=== PATIENT | female | born 1975 | race Caucasian/White ===

== ENCOUNTER 2021-01-08 13:36 | Emergency (ER) | payer MEDICARE, MEDICAID, SELFPAY ==
[2021-01-08 13:40] VITALS: BP 96/72; PULSE 103; RESP 18; O2SAT 100; BMI 12.5
[2021-01-08 13:52] VITALS: BP 96/72; PULSE 105; RESP 17; O2SAT 100
--- NOTE | 2021-01-08 13:57 | CT_ITS ---
WS: [id number] CT ABDOMEN PELVIS TECHNIQUE: Contrast-enhanced CT of the abdomen and pelvis with coronal and sagittal reformatted image s. CLINICAL INFORMATION: abd pain. recent surgeries. Ports on left abd red/puss/tend Tiny amount of fluid and edema along the gastrostomy tube tract left upper quadrant. No drainable abs cess or fluid collection. COMPARISON: December 07, 2016 DLP: 686.[address] scans at [facility] use at least one of these dose optimization techniques: automat ed exposure control; mA and/or kV adjustment per patient size (includes targeted exams where dose is matched to clinical indication); or iterative reconstruction. FINDINGS: Diffuse fatty infiltration liver. Normal portal vein and splenic vein. Intraluminal gastrostomy tube in the stomach. Small amount of edema and fluid in the left upper quadrant along the gastrostomy trac t. No well-defined drainable abscess or fluid collection. Normal spleen. Lung bases are well aerated. Adrenal glands are normal. Normal renal parenchymal enhan cement. Tiny bilateral renal cysts. No hydronephrosis. Normal caliber abdominal aorta. Diffuse disten ded fluid-filled loops of small and large bowel throughout the abdomen. This extends to the sigmoid c olon. Findings likely due to adynamic ileus versus distal obstruction. Evidence of prior bowel resect ion. Normal lumbar spine. CT/CT abdomen pelvis w con* [id number] IMPRESSION: 1. Intraluminal gastrostomy tube appears in normal position. Small amount of f luid and soft tissue edema along the gastrostomy tract in the left upper quadra nt. No well-defined drainable abscess. 2. Distended fluid-filled loops of both small and large bowel extending to the sigmoid colon. Findings are likely due to adynamic ileus versus less likely di stal obstruction. 3. Normal renal parenchymal enhancement. No hydronephrosis. Attempted notification Werner Bishop MD at 01/08/2021 2:39 PM.
--- NOTE | 2021-01-08 13:59 | ECG_ITS ---
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 Measurements Intervals [place] Rate: 101 P: -12 ME: 120 QRS: -3 QRSD: 82 T: -12 QT: 417 QTc: 541 Interpretive Statements SINUS TACHYCARDIA POSSIBLE LEFT ATRIAL ENLARGEMENT [-0.1mV P WAVE IN V1/V2] MINIMAL ST DEPRESSION [0.025+ mV ST DEPRESSION] Compared to ECG 04/24/2017 21:31:18 Sinus rhythm no longer present ST (T wave) deviation still present Electronically Signed On 01-09-2021 18:45:25 CDT by Odell Og M.D. [id number]
[2021-01-08 14:09] LABS: Basophils # 0.1 10^3/uL (0.0-0.1); Basophils % 0.6 %; Eosinophils # 0.5 10^3/uL (0.0-0.8); Hematocrit 33.5 % (37.0-47.0); Lymphocytes % 15.5 %; Mean Corpuscular HGB Conc 29.9 g/dL (30.0-36.0); Mean Corpuscular Hemoglobin 24.2 pg (28.0-34.0); Mean Corpuscular Volume 81.1 fL (81-99); Mean Platelet Volume 9.1 fL (7.4-10.4); Monocytes # 0.9 10^3/uL (0.2-0.9); Monocytes % 7.1 %; Neutrophils # 9.13 10^3/uL (1.8-7.7); Neutrophils % 72.4 %; Nucleated Red Blood Cells % 0 %; Platelet Count 921 10^3/cmm (130-400); Red Blood Count 4.13 10^6/uL (4.1-5.3); Red Cell Distribution Width 16.9 % (12.1-15.1); White Blood Count 12.6 10^3/uL (4.0-10.0)
[2021-01-08] MEDS: iohexol 300 mg/mL 100 mL Btl IV (14:17)
[2021-01-08 14:30] LABS: HCG, Serum Qual Negative (Negative)
[2021-01-08 14:31] LABS: Lactate (Lactic Acid level) 0.8 mmol/L (0.5-2.2)
[2021-01-08 14:32] LABS: Alanine Aminotransferase 12 U/L (0-33); Albumin Level 4.1 g/dL (3.5-5.2); Alkaline Phosphatase 133 IU/L (35-105); Anion Gap 14.7 (5-19); Aspartate Amino Transferase 18 U/L (0-32); Blood Urea Nitrogen 22 mg/dL (6-20); Calcium 8.6 mg/dL (8.5-10.5); Carbon Dioxide 27 mmol/L (22-29); Chloride 97 mmol/L (98-107); Globulin 3.2 g/dL (1.3-4.6); Glomerular Filtration Rate 67.4 mL/min (90-130); Glucose 87 mg/dL (65-115); Lipase 56 U/L (13-60); Osmolality Calculated 285 mOsm/kg (285-295); Sodium 136 mmol/L (136-145); Total Bilirubin 0.2 mg/dL (0.15-1.2); Total Protein 7.3 g/dL (6.6-8.7)
[2021-01-08 14:36] LABS: Potassium 2.7 mmol/L (3.5-5.1)
--- NOTE | 2021-01-08 14:45 | PC.PHAR ---
PT STATES HER AND HER TAKE CARE OF HER MEDICATIONS-PT HAD A RX FOR LORAZEPAM 2MG DAILY FILLED ON 12/27/20 10D/S PT STATES SHE IS OUT OF THAT MEDICATION-PT GOT TRAZODONE 150MG TAKE 75MG HS FILLED ON 12/27/20 20D/S PT STATES SHE WAS JUST TAKING THE WHOLE 150MG TAB AND HAS BEEN OUT FOR ALMOST 2 WEEKS-EXT MED HISTORY SHOWS NARCAN FILLED ON 12/27/20 PT STATES SHE NEVER GOT THAT MEDICATION-
[2021-01-08] MEDS: sodium chloride 0.9% 1,000 ML 999 ML IV (15:02)
[2021-01-08] MEDS: lidocaine 1% 5 ML in potassium chloride premix 100 ML 25 ML IV (15:05)
[2021-01-08 15:10] VITALS: BP 95/62; PULSE 102; RESP 16; O2SAT 100
[2021-01-08 15:54] LABS: Add Urine Microscopic? YES; Bilirubin Urine Neg (Negative); Blood Urine Trace (Negative); Glucose Urine UA Norm (Normal); Ketones Urine Negative (Negative); Leukocyte Esterase Urine Negative (Negative); Nitrate Urine Negative (Negative); Protein Urine Neg (Negative); Urine Appearance Clear (CLEAR); Urine Color Yellow (Yellow); Urobilinogen Urine Norm (Negative); pH Urine 5 (5-7)
[2021-01-08 16:03] LABS: Bacteria Urine TRACE /hpf; WBC Urine 0-4 /hpf (0-5)
[2021-01-08 16:04] LABS: Add Urine Culture? No
[2021-01-08 16:07] LABS: Alanine Aminotransferase 10 U/L (0-33); Albumin Level 3.5 g/dL (3.5-5.2); Alkaline Phosphatase 115 IU/L (35-105); Anion Gap 13.5 (5-19); Aspartate Amino Transferase 17 U/L (0-32); Blood Urea Nitrogen 20 mg/dL (6-20); Carbon Dioxide 24 mmol/L (22-29); Chloride 98 mmol/L (98-107); Globulin 2.9 g/dL (1.3-4.6); Glomerular Filtration Rate 77.2 mL/min (90-130); Glucose 88 mg/dL (65-115); Osmolality Calculated 278 mOsm/kg (285-295); Sodium 133 mmol/L (136-145); Total Bilirubin 0.2 mg/dL (0.15-1.2); Total Protein 6.4 g/dL (6.6-8.7)
[2021-01-08 16:20] LABS: Potassium 2.5 mmol/L (3.5-5.1)
[2021-01-08] MEDS: potassium chloride ER 20 mEq Tablet 40 MEQ PO (17:36)
[2021-01-08] MEDS: morphine 4 mg/mL SDV 1 mL 2 MG IVP (17:36)
--- NOTE | 2021-01-08 19:11 | W.ED.ABDPA2 ---
HPI - Abdominal Pain General: Chief Complaint: Abdominal Pain Stated Complaint: ABD PAIN Time Seen by Provider: 01/08/21 13:43 History of Present Illness: HPI narrative: The patient is a 45-year-old female with past medical history multiple abdominal surgeries most recently 3 weeks ago where she had a G-tube placed comes to the ER complaining of pain, redness, and discharge from the G-tube site for the past week which has been worsening. She cannot recall any of her previous surgeries but says it started with a bowel rupture and she has had multiple procedures since. She is passing gas normally. MD elicited complaint: abdominal pain Pertinent past history: none Onset (ago): day(s) (7) Pain Consistency: constant Location: LUQ Severity: moderate Quality: sharp Exacerbating factors: other (touching g tube) Relieving factors: rest Associated Symptoms: Reports no associated symptoms; Denies GI cramping, diarrhea, nausea and vomiting Review of Systems General: Reports: 10 or more systems reviewed and unremarkable except in HPI and below Const: Denies: fatigue Eyes: Denies: change in vision, blurry vision or eye redness ENMT: Denies: throat pain, swelling of lips/tongue, ear or mastoid pain or nasal congestion Card: Denies: chest pain, palpitations, irregular heart rhythm, edema, dyspnea on exertion or orthopnea Resp: Denies: dyspnea, productive cough or non-productive cough GI: Reports: abdominal pain; Denies: nausea, vomiting, diarrhea or GI cramping : Denies: flank pain, difficulty voiding, urinary frequency or urinary urgency Musc: Denies: neck pain, back pain, extremity pain, joint pain, joint redness, limited range of motion or muscle weakness Skin/Breast: Denies: rash, pruritus, erythema, skin pain or skin tenderness Neuro: Denies: headache(s), numbness in extremities, weakness in extremities, sensory changes, difficulty walking, dizziness, confusion or Slurred speech present Psych: Denies: anxiety or depression Endo: Denies: polyuria All/Imm: Denies: urticaria, throat swelling or tongue swelling Physical Exam Const: COMMON NORMALS: no acute distress, average body habitus, patient oriented x3, no limitations, healthy appearing, alert and well nourished GENERAL APPEARANCE: cooperative, comfortable, well kempt and well developed ORIENTATION/CONSCIOUSNESS: Yes awake, Yes oriented to person, Yes oriented to place and Yes oriented to time HENMT: COMMON NORMALS: normocephalic, external ears normal and Normal external nose present HEAD & SCALP: normal to inspection and normocephalic NOSE: Normal external nose present EXTERNAL EAR: Yes external ears normal MOUTH: Normal oral and palatal mucosa present THROAT: posterior oropharynx normal Eye: COMMON NORMALS: Equal, round and reactive pupils present and EOMs intact bilaterally GENERAL EYE: appearance normal, both eyes and all related structures PUPIL: Yes Equal, round and reactive pupils present Neck/C-Spine: COMMON NORMALS: full ROM, no lymphadenopathy, no meningeal signs and no JVD GENERAL: Yes normal visual inspection Lymph: LYMPHATIC: no lymphadenopathy noted Chest: COMMONS NORMALS: normal inspection of the chest and normal palpation of entire chest wall Resp: COMMON NORMALS: normal respiratory effort, No retractions, No use of accessory muscles, clear to auscultation bilaterally and percussion normal EFFORT & INSPECTION: Yes able to speak in complete sentences AUSCULTATION: clear to auscultation bilaterally PERCUSSION: percussion normal Cardio: COMMON NORMALS: no JVD, regular rate, regular rhythm, S1 normal heart sound present, S2 normal heart sound present and Peripheral pulses 2+ throughout RATE: regular rate RHYTHM: regular rhythm HEART SOUNDS: S1 normal heart sound present and S2 normal heart sound present PERIPHERAL PULSES: Peripheral pulses 2+ throughout GI: COMMON NORMALS: Normal to inspection, nondistended, normoactive bowel sounds present, Soft to palpation, non-tender and no masses INSPECTION: Yes normal to inspection PALPATION: Yes Soft to palpation GI image (female): 1. G-tube site tender and surrounded by 4 cm cellulitis. No fluctuance : COMMON NORMALS: Yes no CVA tenderness BLADDER/KIDNEY EXAM: Yes no CVA tenderness Back/Pelvis: COMMON NORMALS: no CVA tenderness, thoracic and lumbar spine normal to inspection, no thoracic nor lumbar tenderness and thoraco-lumbar ROM normal Extremity: COMMON NORMALS: normal to inspection, full ROM, capillary refill normal, no joint enlargement and no pedal edema GENERAL: Yes normal exam except as noted Neuro: COMMON NORMALS: patient oriented x3, CN's II-XII intact bilaterally, moves all extremities, no focal motor deficits, no sensory deficits noted and gait normal SENSORIUM/ORIENTATION: Yes alert, Yes oriented to person, Yes oriented to place and Yes oriented to time MENINGEAL SIGNS: Yes no meningeal signs Psych: COMMON NORMALS: mental status grossly normal, Normal thought process present, cooperative, normal affect and speech normal APPEARANCE: Yes well kempt ATTITUDE: Yes calm SPEECH: Yes normal speech THOUGHT PROCESS: Normal thought process present Skin: COMMON NORMALS: no rashes or lesions noted GENERAL SKIN EXAM: no rashes or lesions noted OTHER: 4 cm cellulitis surrounding left G-tube. No significant discharge or fluctuance. Belly soft otherwise. Course Vital Signs: Vital signs: Vital Signs Pulse Rate 102 H 01/08/21 15:10 Respiratory Rate 16 01/08/21 15:10 Blood Pressure 95/62 01/08/21 15:10 Pulse Oximetry 100 01/08/21 15:10 MDM - Abdominal Pain MDM Narrative: Medical decision making narrative: The patient came in complaining of abdominal pain for the past week which is worsening and having discharge from the G-tube. I believe it was placed 3 days ago but she is a poor historian and there is no records. She is also tachycardic, hypotensive and has a white count of 12.6. She was given 2 L of fluids and started on Unasyn for empiric treatment of her cellulitis. CT shows no abscess but does show swelling of the tract along the G-tubes path. It also shows an ileus. She also has hypokalemia 2.5. She pulled out her IV after IV potassium was started and was given 40 p.o. potassium. Discussed with our surgeon here who recommended she follow-up with her surgeon at [facility]. Discussed with Dr. Aparicio her surgeon who will see her when she arrives. Discussed with Dr. Paresh Naidu in the ER who accepts for transfer. She is stable here Lab Data: Labs: Lab Results 01/08/21 01/08/21 01/08/21 Range/Units 12:50 12:50 12:50 WBC 12.6 H (4.0-10.0) 10^3/ uL RBC 4.13 (4.1-5.3) 10^6/u L Hgb 10.0 L (11.5-15.3) g/dL Hct 33.5 L (37.0-47.0) % MCV 81.1 (81-99) fL MCH 24.2 L (28.0-34.0) pg MCHC 29.9 L (30.0-36.0) g/dL RDW 16.9 H (12.1-15.1) % Plt Count 921 H (130-400) 10^3/c mm MPV 9.1 (7.4-10.4) fL Neut % (Auto) 72.4 % Lymph % (Auto) 15.5 % [place] % (Auto) 7.1 % Eos % (Auto) 4.0 % Baso % (Auto) 0.6 % Neut # (Auto) 9.13 H (1.8-7.7) 10^3/u L Lymph # (Auto) 2.0 (0.8-4.8) 10^3/u L [place] # (Auto) 0.9 (0.2-0.9) 10^3/u L Eos # (Auto) 0.5 (0.0-0.8) 10^3/u L Baso # (Auto) 0.1 (0.0-0.1) 10^3/u L Nucleated RBC % (a uto) 0 % Nucleated RBCs # 0.0 /100WBC Sodium Cancelled Potassium Cancelled Chloride Cancelled Carbon Dioxide Cancelled Anion Gap Cancelled BUN Cancelled Creatinine Cancelled GFR Calculation Cancelled Glucose Cancelled Random Glucose Calculated Osmolal ity Cancelled Lactate 0.8 (0.5-2.2) mmol/L Calcium Cancelled Total Bilirubin Cancelled AST Cancelled ALT Cancelled Alkaline Phosphata se Cancelled Total Protein Cancelled Albumin Cancelled Globulin Cancelled Lipase Cancelled HCG, Qual (Negative) Urine Color (Yellow) Urine Appearance (CLEAR) Urine pH (5-7) Ur Specific Gravit y (1.005-1.030) Urine Protein (Negative) Urine Glucose (UA) (Normal) Urine Ketones (Negative) Urine Blood (Negative) Urine Nitrate (Negative) Urine Bilirubin (Negative) Urine Urobilinogen (Negative) mg/dL Ur Leukocyte [place] ase (Negative) Urine RBC (0-2) /hpf Urine WBC (0-5) /hpf Ur Squamous Epith Cells (0-5) /hpf Amorphous Sediment Urine Bacteria (NONE) /hpf 01/08/21 01/08/21 01/08/21 Range/Units 12:50 12:50 15:01 WBC (4.0-10.0) 10^3/ uL RBC (4.1-5.3) 10^6/u L Hgb (11.5-15.3) g/dL Hct (37.0-47.0) % MCV (81-99) fL MCH (28.0-34.0) pg MCHC (30.0-36.0) g/dL RDW (12.1-15.1) % Plt Count (130-400) 10^3/c mm MPV (7.4-10.4) fL Neut % (Auto) % Lymph % (Auto) % [place] % (Auto) % Eos % (Auto) % Baso % (Auto) % Neut # (Auto) (1.8-7.7) 10^3/u L Lymph # (Auto) (0.8-4.8) 10^3/u L [place] # (Auto) (0.2-0.9) 10^3/u L Eos # (Auto) (0.0-0.8) 10^3/u L Baso # (Auto) (0.0-0.1) 10^3/u L Nucleated RBC % (a uto) % Nucleated RBCs # /100WBC Sodium Cancelled 133 L Potassium Cancelled 2.5 L* Chloride Cancelled 98 Carbon Dioxide Cancelled 24 Anion Gap Cancelled 13.5 BUN Cancelled 20 Creatinine Cancelled 0.8 GFR Calculation Cancelled 77.2 L Glucose 87 88 Random Glucose Cancelled Calculated Osmolal ity 285 278 L Lactate (0.5-2.2) mmol/L Calcium Cancelled 8.0 L Total Bilirubin Cancelled 0.2 AST Cancelled 17 ALT Cancelled 10 Alkaline Phosphata se Cancelled 115 H Total Protein Cancelled 6.4 L Albumin Cancelled 3.5 Globulin Cancelled 2.9 Lipase 56 HCG, Qual Negative (Negative) Urine Color (Yellow) Urine Appearance (CLEAR) Urine pH (5-7) Ur Specific Gravit y (1.005-1.030) Urine Protein (Negative) Urine Glucose (UA) (Normal) Urine Ketones (Negative) Urine Blood (Negative) Urine Nitrate (Negative) Urine Bilirubin (Negative) Urine Urobilinogen (Negative) mg/dL Ur Leukocyte [place] ase (Negative) Urine RBC (0-2) /hpf Urine WBC (0-5) /hpf Ur Squamous Epith Cells (0-5) /hpf Amorphous Sediment Urine Bacteria (NONE) /hpf 01/08/21 Range/Units 15:27 WBC (4.0-10.0) 10^3/ uL RBC (4.1-5.3) 10^6/u L Hgb (11.5-15.3) g/dL Hct (37.0-47.0) % MCV (81-99) fL MCH (28.0-34.0) pg MCHC (30.0-36.0) g/dL RDW (12.1-15.1) % Plt Count (130-400) 10^3/c mm MPV (7.4-10.4) fL Neut % (Auto) % Lymph % (Auto) % [place] % (Auto) % Eos % (Auto) % Baso % (Auto) % Neut # (Auto) (1.8-7.7) 10^3/u L Lymph # (Auto) (0.8-4.8) 10^3/u L [place] # (Auto) (0.2-0.9) 10^3/u L Eos # (Auto) (0.0-0.8) 10^3/u L Baso # (Auto) (0.0-0.1) 10^3/u L Nucleated RBC % (a uto) % Nucleated RBCs # /100WBC Sodium Potassium Chloride Carbon Dioxide Anion Gap BUN Creatinine GFR Calculation Glucose Random Glucose Calculated Osmolal ity Lactate (0.5-2.2) mmol/L Calcium Total Bilirubin AST ALT Alkaline Phosphata se Total Protein Albumin Globulin Lipase HCG, Qual (Negative) Urine Color Yellow (Yellow) Urine Appearance Clear (CLEAR) Urine pH 5 (5-7) Ur Specific Gravit y 1.010 (1.005-1.030) Urine Protein Neg (Negative) Urine Glucose (UA) Norm (Normal) Urine Ketones Negative (Negative) Urine Blood Trace H (Negative) Urine Nitrate Negative (Negative) Urine Bilirubin Neg (Negative) Urine Urobilinogen Norm (Negative) mg/dL Ur Leukocyte [place] ase Negative (Negative) Urine RBC 5-10 H (0-2) /hpf Urine WBC 0-4 H (0-5) /hpf Ur Squamous Epith Cells 5-10 H (0-5) /hpf Amorphous Sediment Not Reportable Urine Bacteria Trace (NONE) /hpf Discharge Plan Discharge Patient Disposition: Xfer Short-Term Hosp Clinical Impression: Sepsis, Cellulitis, Ileus, Hyponatremia Condition: Stable Coding Level of Care Code ED Predatory Animal Exterminator for Khoa Szymanski
[2021-01-08 19:20] VITALS: BP 85/55; PULSE 88; RESP 17; O2SAT 100
[2021-01-08 19:52] VITALS: BP 85/55; PULSE 88; RESP 17; O2SAT 100
== END 2021-01-08 19:54 | disposition short-term general hospital (02) ==
PROVIDERS: Emergency Provider Family Medicine
DX: A41.9 Sepsis, unspecified organism (principal); L03.90 Cellulitis, unspecified; K56.7 Ileus, unspecified; E87.1 Hypo-osmolality and hyponatremia
CPT/HCPCS: 74177; 80053; 81001; 83605; 83690; 84703; 85025; 93005; 96361; 96365; 96375; 99285; J2270; J3480; J7030; Q9967

== ENCOUNTER 2021-07-30 13:28 | Emergency (ER) | payer MEDICARE, MEDICAID, SELFPAY ==
[2021-07-30 13:34] VITALS: BP 91/63; PULSE 107; RESP 16; TEMP 36.4; O2SAT 97; BMI 11.7
--- NOTE | 2021-07-30 13:59 | W.ED.NAVMDI ---
Documented by User: ROSA Goetz 07/31/21 06:56 HPI - Nausea/Vomiting/Diarrhea General: Chief complaint: Nausea/Vomiting/Diarrhea Stated complaint: N/V/D Time Seen by Provider: 07/30/21 13:33 History of Present Illness: HPI Narrative: Presents with nausea vomiting diarrhea for the last 2 weeks. She has had diarrhea has been the biggest problem. She only vomited couple times. Patient has a longstanding history abdominal problems which includes abdominal surgery and the last few months that were done up in [place] between December and January Patient denies any fever chills patient states she has had significant weight loss here recently patient has used marijuana but does not use on a regular basis MD elicited complaint: nausea, vomiting and diarrhea Pertinent past history: abdominal surgery Onset (ago): week(s) Description of diarrhea: watery Associated nausea: Yes Associated abdominal pain: No Severity: moderate Exacerbating factors: none Context: history of abdominal surgery Associated symtoms: Reports no associated symptoms and nausea; Denies anxiety, change in vision, chest pain or headache(s) Review of Systems Const: Denies: fever(s), chills or body aches Eyes: Denies: change in vision or blurry vision ENMT: Denies: throat pain or nasal congestion Card: Denies: chest pain or dyspnea on exertion Resp: Denies: dyspnea, productive cough or non-productive cough GI: Reports: nausea, vomiting and diarrhea Musc: Denies: extremity pain Skin/Breast: Denies: rash Neuro: Denies: headache(s) Psych: Denies: anxiety or depression Charles/Lymph: Denies: easy bruising Physical Exam Const: COMMON NORMALS: no acute distress and patient oriented x3 GENERAL APPEARANCE: frail appearing NUTRITIONAL APPEARANCE: cachectic HENMT: COMMON NORMALS: normocephalic HEAD & SCALP: normal to inspection and normocephalic FACE & SINUS: normal facial exam Eye: COMMON NORMALS: conjunctivae normal GENERAL EYE: appearance normal, both eyes and all related structures CONJUNCTIVA: Yes conjunctivae normal Neck/C-Spine: COMMON NORMALS: no JVD Chest: COMMONS NORMALS: normal inspection of the chest Resp: COMMON NORMALS: normal respiratory effort and clear to auscultation bilaterally AUSCULTATION: clear to auscultation bilaterally Cardio: COMMON NORMALS: no JVD, regular rate and regular rhythm RATE: regular rate RHYTHM: regular rhythm GI: COMMON NORMALS: Normal to inspection, nondistended, normoactive bowel sounds present Extremity: COMMON NORMALS: normal to inspection and full ROM Neuro: COMMON NORMALS: patient oriented x3 Course Vital Signs: Vital signs: Vital Signs Temperature 98.2 F 07/30/21 14:02 Pulse Rate 107 H 07/30/21 14:02 Respiratory Rate 18 07/30/21 14:02 Blood Pressure 91/63 07/30/21 14:02 Pulse Oximetry 97 07/30/21 14:02 MDM - Nausea/Vomiting/Diarrhea MDM Narrative: Medical decision making narrative: Patient presents with nausea and vomiting, and then diarrhea x2 weeks. Patient has a history of on and off again diarrhea. Patient's had multiple abdominal surgeries. Patient still has that she just aches all over and there does not any medicine take care of her diarrhea. Patient has a history of low potassium. She has not seen her specialist for quite a while. Laboratory studies were done which revealed a potassium of 2.2 which I discussed with Dr. Porter along with other labs which include increased white count and increased platelet and chronic anemia. CT studies reveal gastroenteritis. Patient received fluid and oral liquid potassium while here in the ER. Patient also received Lomotil for diarrhea she was given prescription for potassium, Lomotil and an antibiotic and was encouraged to follow-up with her primary care provider on and Wednesday to get a recheck potassium and further assess whether she is improving with her symptoms. Patient was encouraged follow-up with her specialist also. Lab Data: Labs: Lab Results 07/30/21 07/30/21 07/30/21 15:00 15:35 15:35 WBC 16.7 10^3/uL H 10 ^3/uL (4.0-10.0) RBC 4.26 10^6/uL 10^6 /uL (4.1-5.3) Hgb 9.3 g/dL L g/dL (11.5-15.3) Hct 31.6 % L % (37.0-47.0) MCV 74.2 fl L fl (81-99) MCH 21.8 pg L pg (28.0-34.0) MCHC 29.4 g/dL L g/dL (30.0-36.0) RDW 19.5 % H % (12.1-15.1) Plt Count 782 10^3/cmm H 10 ^3/cmm (130-400) MPV 8.5 fL fL (7.4-10.4) Neut % (Auto) 81.7 % % Lymph % (Auto) 9.1 % % [place] % (Auto) 6.1 % % Eos % (Auto) 0.2 % % Baso % (Auto) 0.6 % % Neut # (Auto) 13.59 10^3/uL H 1 0^3/uL (1.8-7.7) Lymph # (Auto) 1.5 10^3/uL 10^3/ uL (0.8-4.8) [place] # (Auto) 1.0 10^3/uL H 10^ 3/uL (0.2-0.9) Eos # (Auto) 0.0 10^3/uL 10^3/ uL (0.0-0.8) Baso # (Auto) 0.1 10^3/uL 10^3/ uL (0.0-0.1) Nucleated RBC % (a uto) 0 % % Nucleated RBCs # 0.0 /100WBC /100W BC Sodium 124 mmol/L L mmol /L (136-145) Potassium 2.2 mmol/L L* mmo l/L (3.5-5.1) Chloride 88 mmol/L L mmol/ L (98-107) Carbon Dioxide 14 mmol/L L mmol/ L (22-29) Anion Gap 24.2 H (5-19) BUN 23 mg/dL H mg/dL (6-20) Creatinine 1.7 mg/dL H mg/dL (0.5-0.9) GFR Calculation 32.4 mL/min L mL/ min (90-130) Glucose 108 mg/dL mg/dL (65-115) Calculated Osmolal ity 262 mOsm/kg L mOs m/kg (285-295) Calcium 8.0 mg/dL L mg/dL (8.5-10.5) Magnesium 1.7 mg/dL mg/dL (1.7-2.3) Total Bilirubin 0.2 mg/dL mg/dL (0.15-1.2) AST 22 U/L U/L (0-32) ALT 18 U/L U/L (0-33) Alkaline Phosphata se 147 IU/L H IU/L (35-105) Total Protein 6.5 g/dL L g/dL (6.6-8.7) Albumin 3.8 g/dL g/dL (3.5-5.2) Globulin 2.7 g/dL g/dL (1.3-4.6) Lipase 31 U/L U/L (13-60) Urine Color Yellow (Yellow) Urine Appearance Hazy A (CLEAR) Urine pH 5 (5-7) Ur Specific Gravit y 1.015 (1.005-1.030) Urine Protein Neg (Negative) Urine Glucose (UA) Norm (Normal) Urine Ketones Negative (Negative) Urine Blood Neg (Negative) Urine Nitrate Negative (Negative) Urine Bilirubin Neg (Negative) Urine Urobilinogen Norm mg/dL mg/dL (Negative) Ur Leukocyte [place] ase 1+ H (Negative) Urine RBC 0-4 /hpf H /hpf (0-2) Urine WBC 10-15 /hpf H /hpf (0-5) Ur Squamous Epith Cells 5-10 /hpf H /hpf (0-5) Amorphous Sediment Not Reportable Urine Bacteria Trace /hpf /hpf (NONE) Urine Mucus 2+ /hpf /hpf Discharge Plan Discharge Patient Disposition: Home Clinical Impression: Gastroenteritis, High platelet count, Acute hypokalemia Condition: Stable Prescriptions: New Augmentin 875-125 mg tablet 1 tab PO BID Qty: 14 RF: 0 Lomotil 2.5-0.025 mg tablet 1 tab PO TID PRN (Reason: diarrhea) Qty: 10 RF: 0 tramadol 50 mg tablet 50 mg PO TID PRN (Reason: pain) Qty: 7 RF: 0 potassium chloride 20 mEq/15 mL liquid 20 meq PO DAILY Qty: 120 RF: 0 No Action gabapentin 600 mg tablet 600 mg PO TID RF: 0 quetiapine 300 mg tablet 600 mg PO BEDTIME RF: 0 alprazolam 1 mg tablet 1 mg PO QID RF: 0 sertraline 100 mg tablet 100 mg PO BID RF: 0 pantoprazole 40 mg tablet,delayed release (DR/EC) 40 mg PO QAM RF: 0 topiramate 200 mg tablet 200 mg PO BID RF: 0 zolpidem 10 mg tablet 10 mg PO BEDTIME RF: 0 metoclopramide HCl 10 mg tablet 10 mg PO TID RF: 0 Benadryl 25 mg Capsule 50 mg PO PRN RF: 0 Gentle Lax-Women 65-100 mg Tablet 2 tab PO PRN RF: 0 Excedrin Migraine 250-250-65 mg Tablet 2 tab PO PRN RF: 0 Discharge Orders: Discharge ED (Routine); Ordered 07/30/21 Ordered By: Stepan Newell Referrals: Gee Simon [Primary Care Provider] - Discharge Diet: Advance as tolerated Discharge Activity: Increase activity as tolerated Patient Instructions: Hypokalemia (ED), Gastroenteritis (ED) Activity Restrictions/Additional Instructions: Follow-up with medical provider as directed. Take medications as prescribed. Return to the ER or your medical provider if condition worsens. Please read and understand discharge instructions. If any questions ask please. Follow-up with your primary care provider on Wednesday get potassium rechecked. Coding Level of Care Code ED Screening Unit Registered Nurse for Chg Fwd Exam Comprehensive Documented by User: Mohan Porter DO 07/31/21 07:37 HPI - Nausea/Vomiting/Diarrhea General: Chief complaint: Nausea/Vomiting/Diarrhea Stated complaint: N/V/D Time Seen by Provider: 07/30/21 13:33 Course Vital Signs: Vital signs: Vital Signs Temperature 98.2 F 07/30/21 14:02 Pulse Rate 107 H 07/30/21 14:02 Respiratory Rate 18 07/30/21 14:02 Blood Pressure 91/63 07/30/21 14:02 Pulse Oximetry 97 07/30/21 14:02 MDM - Nausea/Vomiting/Diarrhea MDM Narrative: Medical decision making narrative: Chart reviewed. Hypokalemia corrected with oral supplement. Has scheduled repeat potassium check.Reviewing the chart noted her BMI is 11.7. There is also significant weight loss. We will have the patient return on 07/31 for repeat potassium. Lab Data: Labs: Lab Results 07/30/21 07/30/21 07/30/21 15:00 15:35 15:35 WBC 16.7 10^3/uL H 10 ^3/uL (4.0-10.0) RBC 4.26 10^6/uL 10^6 /uL (4.1-5.3) Hgb 9.3 g/dL L g/dL (11.5-15.3) Hct 31.6 % L % (37.0-47.0) MCV 74.2 fl L fl (81-99) MCH 21.8 pg L pg (28.0-34.0) MCHC 29.4 g/dL L g/dL (30.0-36.0) RDW 19.5 % H % (12.1-15.1) Plt Count 782 10^3/cmm H 10 ^3/cmm (130-400) MPV 8.5 fL fL (7.4-10.4) Neut % (Auto) 81.7 % % Lymph % (Auto) 9.1 % % [place] % (Auto) 6.1 % % Eos % (Auto) 0.2 % % Baso % (Auto) 0.6 % % Neut # (Auto) 13.59 10^3/uL H 1 0^3/uL (1.8-7.7) Lymph # (Auto) 1.5 10^3/uL 10^3/ uL (0.8-4.8) [place] # (Auto) 1.0 10^3/uL H 10^ 3/uL (0.2-0.9) Eos # (Auto) 0.0 10^3/uL 10^3/ uL (0.0-0.8) Baso # (Auto) 0.1 10^3/uL 10^3/ uL (0.0-0.1) Nucleated RBC % (a uto) 0 % % Nucleated RBCs # 0.0 /100WBC /100W BC Sodium 124 mmol/L L mmol /L (136-145) Potassium 2.2 mmol/L L* mmo l/L (3.5-5.1) Chloride 88 mmol/L L mmol/ L (98-107) Carbon Dioxide 14 mmol/L L mmol/ L (22-29) Anion Gap 24.2 H (5-19) BUN 23 mg/dL H mg/dL (6-20) Creatinine 1.7 mg/dL H mg/dL (0.5-0.9) GFR Calculation 32.4 mL/min L mL/ min (90-130) Glucose 108 mg/dL mg/dL (65-115) Calculated Osmolal ity 262 mOsm/kg L mOs m/kg (285-295) Calcium 8.0 mg/dL L mg/dL (8.5-10.5) Magnesium 1.7 mg/dL mg/dL (1.7-2.3) Total Bilirubin 0.2 mg/dL mg/dL (0.15-1.2) AST 22 U/L U/L (0-32) ALT 18 U/L U/L (0-33) Alkaline Phosphata se 147 IU/L H IU/L (35-105) Total Protein 6.5 g/dL L g/dL (6.6-8.7) Albumin 3.8 g/dL g/dL (3.5-5.2) Globulin 2.7 g/dL g/dL (1.3-4.6) Lipase 31 U/L U/L (13-60) Urine Color Yellow (Yellow) Urine Appearance Hazy A (CLEAR) Urine pH 5 (5-7) Ur Specific Gravit y 1.015 (1.005-1.030) Urine Protein Neg (Negative) Urine Glucose (UA) Norm (Normal) Urine Ketones Negative (Negative) Urine Blood Neg (Negative) Urine Nitrate Negative (Negative) Urine Bilirubin Neg (Negative) Urine Urobilinogen Norm mg/dL mg/dL (Negative) Ur Leukocyte [place] ase 1+ H (Negative) Urine RBC 0-4 /hpf H /hpf (0-2) Urine WBC 10-15 /hpf H /hpf (0-5) Ur Squamous Epith Cells 5-10 /hpf H /hpf (0-5) Amorphous Sediment Not Reportable Urine Bacteria Trace /hpf /hpf (NONE) Urine Mucus 2+ /hpf /hpf Discharge Plan Discharge Patient Disposition: Home Clinical Impression: Gastroenteritis, High platelet count, Acute hypokalemia Condition: Stable Prescriptions: New Augmentin 875-125 mg tablet 1 tab PO BID Qty: 14 RF: 0 Lomotil 2.5-0.025 mg tablet 1 tab PO TID PRN (Reason: diarrhea) Qty: 10 RF: 0 tramadol 50 mg tablet 50 mg PO TID PRN (Reason: pain) Qty: 7 RF: 0 potassium chloride 20 mEq/15 mL liquid 20 meq PO DAILY Qty: 120 RF: 0 No Action gabapentin 600 mg tablet 600 mg PO TID RF: 0 quetiapine 300 mg tablet 600 mg PO BEDTIME RF: 0 alprazolam 1 mg tablet 1 mg PO QID RF: 0 sertraline 100 mg tablet 100 mg PO BID RF: 0 pantoprazole 40 mg tablet,delayed release (DR/EC) 40 mg PO QAM RF: 0 topiramate 200 mg tablet 200 mg PO BID RF: 0 zolpidem 10 mg tablet 10 mg PO BEDTIME RF: 0 metoclopramide HCl 10 mg tablet 10 mg PO TID RF: 0 Benadryl 25 mg Capsule 50 mg PO PRN RF: 0 Gentle Lax-Women 65-100 mg Tablet 2 tab PO PRN RF: 0 Excedrin Migraine 250-250-65 mg Tablet 2 tab PO PRN RF: 0 Discharge Orders: Discharge ED (Routine); Ordered 07/30/21 Ordered By: Stepan Newell Referrals: Gee Simon [Primary Care Provider] - Discharge Diet: Advance as tolerated Discharge Activity: Increase activity as tolerated Patient Instructions: Hypokalemia (ED), Gastroenteritis (ED) Activity Restrictions/Additional Instructions: Follow-up with medical provider as directed. Take medications as prescribed. Return to the ER or your medical provider if condition worsens. Please read and understand discharge instructions. If any questions ask please. Follow-up with your primary care provider on Wednesday get potassium rechecked. Coding Level of Care Code ED Screening Unit Registered Nurse for Khoa Fwkisha Exam Comprehensive
--- NOTE | 2021-07-30 14:01 | CTR_ITS ---
PROCEDURE INFORMATION: Exam: CT Abdomen And Pelvis With Contrast Exam date and time: 07/30/2021 2:01 PM Age: 45 years old Clinical indication: Nausea and vomiting; Prior surgery; Additional info: HX of abd surgery, rapis weight loss TECHNIQUE: Imaging protocol: Computed tomography of the abdomen and pelvis with contrast. Total images: 198 Radiation optimization: All CT scans at this facility use at least one of these dose optimization techniques: automated exposure control; mA and/or kV adjustment per patient size (includes targeted exams where dose is matched to clinical indication); or iterative reconstruction. Contrast material: OMNI 300; Contrast volume: 75 ml; Contrast route: INTRAVENOUS (IV); COMPARISON: CT abdomen pelvis w con* [id number] 01/08/2021 2:14 PM RADIATION DOSE METRICS: Total DLP (mGy-cm): 693.45 FINDINGS: Lungs: Limited assessment of the lung bases fails to reveal evidence for active cardiopulmonary process. Hyperinflation of COPD/chronic bronchitis. Liver: No visible hepatic mass. Rare tiny simple hepatic cyst stable. Gallbladder and bile ducts: Enlarged hydropic gallbladder. No visible cholelithiasis. No visible gallbladder wall thickening or pericholecystic fluid. Mild intra and extrahepatic biliary ectasia with the common bile duct measuring a maximum diameter of 6.4 mm. No visible choledocholithiasis. Pancreas: Pancreas is unremarkable. No visible pancreatic ductal ectasia. Spleen: Spleen unremarkable. Adrenal glands: Adrenal glands unremarkable. Kidneys and ureters: No hydronephrosis or perinephric fluid. Two tiny nonobstructing calyceal nephrolithiasis foci left kidney both under 2 mm. Right kidney without visible nephrolithiasis. Rare bilateral small simple renal cortical cyst averaging 1 cm smaller period no follow-up recommended Stomach and bowel: Moderate either reactive or adynamic colonic ileus with fluid-filled colonic bowel loops. No visible mucosal thickening to suggest active either inflammatory or infectious colitis. Nonobstructive bowel pattern. Findings consistent with gastroenteritis with gastric mucosal and small bowel mucosal thickening and increased enhancement. Fluid-filled loops of small bowel. Appendix: Status post appendectomy. Intraperitoneal space: Visible pneumoperitoneum or intraperitoneal ascites. Vasculature: Patent portal vein. The abdominal aorta is nonaneurysmal. Lymph nodes: No visible pathologic enlarged lymph nodes. Urinary bladder: Urinary bladder unremarkable. Reproductive: Unremarkable as visualized. Bones/joints: No visible acute osseous abnormality Soft tissues: Cachexia. Other findings: Microcardia. CT/CT abdomen pelvis w con* [id number] IMPRESSION: 1. Findings most consistent with gastroenteritis. 2. Moderate either reactive or adynamic colonic ileus with fluid-filled colonic bowel loops. 3. Enlarged hydropic gallbladder without visible cholelithiasis or gallbladder wall thickening. 4. Mild intra and extrahepatic biliary ectasia. 5. Left nephrolithiasis. 6. Other nonurgent, nonemergent, chronic, and age related findings as detailed in text above. COMMENTS: Consistent with the [employer]'s Incidental Findings Committee white paper (J Am Zenon Radiol 2018): Any incidental renal lesion less than 1 cm or classified as too small to characterize, or any incidental cystic renal lesion characterized as simple-appearing, is likely benign. No follow-up imaging is recommended for these lesions per consensus recommendations based on imaging criteria.
[2021-07-30 14:02] VITALS: BP 91/63; PULSE 107; RESP 18; TEMP 36.8; O2SAT 97
[2021-07-30] MEDS: sodium chloride 0.9% 1,000 ML 999 ML IV (14:12)
[2021-07-30] MEDS: diphenoxylate/atropine Tablet 2 TAB PO (14:12)
[2021-07-30] MEDS: iohexol 300 mg/mL 100 mL Btl IV (15:18)
[2021-07-30 15:47] LABS: Basophils # 0.1 10^3/uL (0.0-0.1); Basophils % 0.6 %; Eosinophils % 0.2 %; Hematocrit 31.6 % (37.0-47.0); Hemoglobin 9.3 g/dL (11.5-15.3); Lymphocytes # 1.5 10^3/uL (0.8-4.8); Lymphocytes % 9.1 %; Mean Corpuscular HGB Conc 29.4 g/dL (30.0-36.0); Mean Corpuscular Hemoglobin 21.8 pg (28.0-34.0); Mean Corpuscular Volume 74.2 fl (81-99); Mean Platelet Volume 8.5 fL (7.4-10.4); Monocytes % 6.1 %; Neutrophils # 13.59 10^3/uL (1.8-7.7); Neutrophils % 81.7 %; Nucleated Red Blood Cells % 0 %; Platelet Count 782 10^3/cmm (130-400); Red Blood Count 4.26 10^6/uL (4.1-5.3); Red Cell Distribution Width 19.5 % (12.1-15.1); White Blood Count 16.7 10^3/uL (4.0-10.0)
[2021-07-30 16:01] LABS: Bilirubin Urine Neg (Negative); Blood Urine Neg (Negative); Glucose Urine UA Norm (Normal); Ketones Urine Negative (Negative); Nitrate Urine Negative (Negative); Protein Urine Neg (Negative); Specific Gravity, Urine 1.015 (1.005-1.030); Urine Appearance Hazy (CLEAR); Urine Color Yellow (Yellow); Urobilinogen Urine Norm (Negative); pH Urine 5 (5-7)
[2021-07-30 16:02] LABS: Leukocyte Esterase Urine 1+ (Negative)
[2021-07-30 16:04] LABS: Add Urine Culture? Yes; Add Urine Microscopic? YES; Bacteria Urine TRACE /hpf; Mucus Urine 2+ /hpf; RBC Urine 0-4 /hpf (0-2)
[2021-07-30 16:12] LABS: Alanine Aminotransferase 18 U/L (0-33); Albumin Level 3.8 g/dL (3.5-5.2); Alkaline Phosphatase 147 IU/L (35-105); Anion Gap 24.2 (5-19); Aspartate Amino Transferase 22 U/L (0-32); Blood Urea Nitrogen 23 mg/dL (6-20); Carbon Dioxide 14 mmol/L (22-29); Chloride 88 mmol/L (98-107); Globulin 2.7 g/dL (1.3-4.6); Glomerular Filtration Rate 32.4 mL/min (90-130); Glucose 108 mg/dL (65-115); Lipase 31 U/L (13-60); Magnesium 1.7 mg/dL (1.7-2.3); Osmolality Calculated 262 mOsm/kg (285-295); Sodium 124 mmol/L (136-145); Total Bilirubin 0.2 mg/dL (0.15-1.2); Total Protein 6.5 g/dL (6.6-8.7)
[2021-07-30 16:20] LABS: Potassium 2.2 mmol/L (3.5-5.1)
--- NOTE | 2021-07-31 12:44 | PC.NURSE ---
Pt called at 0800 today and instructed to return to the ER immediately for treatment of hyponatremia and hypokalemia. Pt assured this RN that she would return to the ED.
== END 2021-07-30 17:16 | disposition home or self-care (01) ==
PROVIDERS: Emergency Provider Nurse Practitioner Family; PCP Family Medicine
DX: K52.9 Noninfective gastroenteritis and colitis, unspecified (principal); E87.6 Hypokalemia; D75.839 Thrombocytosis, unspecified
CPT/HCPCS: 36415; 74177; 80053; 81001; 83690; 83735; 85025; 87077; 87086; 87186; 96360; 99283; J7030; Q9967

== ENCOUNTER 2021-07-31 13:28 | Observation (INO) | payer MEDICARE, MEDICAID, SELFPAY ==
[2021-07-31 13:57] VITALS: BP 79/53; PULSE 100; RESP 16; TEMP 36.7; O2SAT 100
--- NOTE | 2021-07-31 14:24 | XRR_ITS ---
PROCEDURE INFORMATION: Exam: XR Chest Exam date and time: 07/31/2021 2:24 PM Age: 45 years old Clinical indication: Cough and dyspnea. Diarrhea and vomiting for 3 days. TECHNIQUE: Imaging protocol: XR of the chest. Views: 1 view. COMPARISON: CR Chest 2 views* [id number] 12/07/2016 2:21 PM FINDINGS: Lungs: No pulmonary consolidation. Pleural spaces: No pleural effusion. No pneumothorax. Heart/Mediastinum: The cardiac silhouette is unchanged. No gross evidence of pneumomediastinum. Bones/joints: No gross fracture. Soft tissues: Bilateral breast implants overlie the chest. Probable nipple shadow overlying the mid to lower left chest. XR/XR chest 1V portable [id number] IMPRESSION: 1. No acute cardiopulmonary abnormality identified. 2. Probable nipple shadow overlying the mid to lower left chest. Consider repeat chest x-ray with nipple markers to confirm.
--- NOTE | 2021-07-31 15:22 | ED_ITS ---
HPI - General Adult General: Chief complaint: Altered Mental Status Stated complaint: extreme weakness was here yesterday Time Seen by Provider: 07/31/21 13:29 History of Present Illness: HPI narrative: 45 yo female presents to the ER with complaints of diarrhea for the a last 2 wks.significant weight loss. No fever sweats chills cough. She has some generalized abdominal cramping and discomfort. She was seen yesterday and had a CT of her abdomen that showed some gastroenteritis but otherwise is relatively unremarkable. Had been reviewing the chart from when the midlevel had seen her yesterday and she had significant electrolyte abnormalities. We called her back to return to the emergency room to be reevaluated and have her potassium rechecked it was 2.2 yesterday. She continues to have diarrhea. She denies any medic easy melena hematemesis or coffee-ground emesis. Onset (ago): minute(s) Location: chest and abdomen Severity: moderate Quality: aching Pain Consistency: intermittent Relieving factors: none Exacerbating factors: none Associated symptoms: Reports decreased appetite; Deny chest pain, confusion, cough, diaphoresis, dyspnea, fevers/chills, headache(s), malaise, nausea, rash, palpitations, seizures, short of breath, syncope, vomiting or weakness Treatments prior to arrival: none Review of Systems Const: Denies: malaise or diaphoresis ENMT: Denies: throat pain, ear or mastoid pain, nasal discharge or nasal congestion Card: Denies: chest pain, palpitations or syncope Resp: Denies: dyspnea GI: Denies: nausea or vomiting : Denies: flank pain, difficulty voiding, dysuria, urinary frequency or urinary urgency Skin/Breast: Denies: rash Neuro: Denies: headache(s) or confusion [facility] ED PFSH: Medical History (Updated 08/07/21 @ 10:07 by Mohan Porter DO) Acute hypokalemia MARLEEN (acute kidney injury) Chronic diarrhea Depression Failure to thrive Gastroenteritis Surgical History (Updated 07/31/21 @ 15:25 by Mohan Porter DO) S/P breast augmentation S/P laparotomy Physical Exam Const: GENERAL APPEARANCE: cooperative NUTRITIONAL APPEARANCE: cachectic ORIENTATION/CONSCIOUSNESS: Yes awake, Yes oriented to person, Yes oriented to place and Yes oriented to time HENMT: COMMON NORMALS: normocephalic, atraumatic and hearing grossly normal bilaterally HEAD & SCALP: normocephalic and atraumatic Neck/C-Spine: COMMON NORMALS: no JVD Resp: COMMON NORMALS: normal respiratory effort, No retractions, No use of accessory muscles and clear to auscultation bilaterally AUSCULTATION: clear to auscultation bilaterally Cardio: COMMON NORMALS: no JVD, regular rate, regular rhythm and No murmurs present (Cardio) RATE: regular rate RHYTHM: regular rhythm GI: COMMON NORMALS: Soft to palpation and No hepatosplenomegaly present AUSCULTATION: Yes normoactive bowel sounds PALPATION: Yes Soft to palpation, No Tenderness to palpation present (GI), No Guarding due to palpation present (GI) and Yes No hepatosplenomegaly present Extremity: COMMON NORMALS: normal to inspection, capillary refill normal, no clubbing, cyanosis or edema, no calf tenderness and no pedal edema Neuro: SENSORIUM/ORIENTATION: Yes oriented to person, Yes oriented to place and Yes oriented to time Skin: COMMON NORMALS: no rashes or lesions noted GENERAL SKIN EXAM: no rashes or lesions noted Course Vital Signs: Vital signs: Vital Signs Temperature 98.6 F 08/02/21 13:30 Pulse Rate 95 08/02/21 13:30 Respiratory Rate 18 08/02/21 13:30 Blood Pressure 76/40 08/02/21 13:30 Pulse Oximetry 98 08/02/21 13:30 MDM - General Adult MDM Narrative: Medical decision making narrative: Extreme cachexia with a BMI of just under 12 at the time of admission. We will go ahead and admit the patient. Discussed with hospitalist. We will hydrate her as well as replace potassium. She needs further work-up for source of weight loss. If no work-up found will likely need psychiatric consultation for body dysmorphic disorder and eating disorder. Lab Data: Labs: Lab Results 07/31/21 07/31/21 07/31/21 15:13 15:13 15:13 WBC 10.3 10^3/uL H 10 ^3/uL (4.0-10.0) RBC 4.16 10^6/uL 10^6 /uL (4.1-5.3) Hgb 9.1 g/dL L g/dL (11.5-15.3) Hct 30.4 % L % (37.0-47.0) MCV 73.1 fl L fl (81-99) MCH 21.9 pg L pg (28.0-34.0) MCHC 29.9 g/dL L g/dL (30.0-36.0) RDW 19.0 % H % (12.1-15.1) Plt Count 616 10^3/cmm H 10 ^3/cmm (130-400) MPV 8.5 fL fL (7.4-10.4) Neut % (Auto) 65.1 % % Lymph % (Auto) 23.1 % % [place] % (Auto) 8.9 % % Eos % (Auto) 1.0 % % Baso % (Auto) 0.8 % % Neut # (Auto) 6.70 10^3/uL 10^3 /uL (1.8-7.7) Lymph # (Auto) 2.4 10^3/uL 10^3/ uL (0.8-4.8) [place] # (Auto) 0.9 10^3/uL 10^3/ uL (0.2-0.9) Eos # (Auto) 0.1 10^3/uL 10^3/ uL (0.0-0.8) Baso # (Auto) 0.1 10^3/uL 10^3/ uL (0.0-0.1) Nucleated RBC % (a uto) 0.2 % % Nucleated RBCs # 0.0 /100WBC /100W BC Sodium 132 mmol/L L mmol /L (136-145) Potassium 2.0 mmol/L L* mmo l/L (3.5-5.1) Chloride 97 mmol/L L mmol/ L (98-107) Carbon Dioxide 17 mmol/L L mmol/ L (22-29) Anion Gap 20.0 H (5-19) BUN 21 mg/dL H mg/dL (6-20) Creatinine 1.3 mg/dL H mg/dL (0.5-0.9) GFR Calculation 44.1 mL/min L mL/ min (90-130) Glucose 79 mg/dL mg/dL (65-115) Calculated Osmolal ity 276 mOsm/kg L mOs m/kg (285-295) Calcium 8.5 mg/dL mg/dL (8.5-10.5) Magnesium 2.0 mg/dL mg/dL (1.7-2.3) Discharge Plan Discharge Patient Disposition: Admitted As Inpatient Admit Provider: Leroy Olivares Clinical Impression: Acute hypokalemia, Adult failure to thrive, Chronic diarrhea, Gastroenteritis Condition: Stable Coding Level of Care Code ED Floor Attendant for Chg Fwd Exam Comprehensive
[2021-07-31 15:34] LABS: Basophils # 0.1 10^3/uL (0.0-0.1); Basophils % 0.8 %; Eosinophils # 0.1 10^3/uL (0.0-0.8); Hematocrit 30.4 % (37.0-47.0); Hemoglobin 9.1 g/dL (11.5-15.3); Lymphocytes # 2.4 10^3/uL (0.8-4.8); Lymphocytes % 23.1 %; Mean Corpuscular HGB Conc 29.9 g/dL (30.0-36.0); Mean Corpuscular Hemoglobin 21.9 pg (28.0-34.0); Mean Corpuscular Volume 73.1 fl (81-99); Mean Platelet Volume 8.5 fL (7.4-10.4); Monocytes # 0.9 10^3/uL (0.2-0.9); Monocytes % 8.9 %; Neutrophils % 65.1 %; Nucleated Red Blood Cells % 0.2 %; Platelet Count 616 10^3/cmm (130-400); Red Blood Count 4.16 10^6/uL (4.1-5.3); White Blood Count 10.3 10^3/uL (4.0-10.0)
[2021-07-31 15:41] VITALS: BP 77/53; PULSE 88; RESP 13; O2SAT 99
[2021-07-31 15:50] LABS: Blood Urea Nitrogen 21 mg/dL (6-20); Calcium 8.5 mg/dL (8.5-10.5); Carbon Dioxide 17 mmol/L (22-29); Chloride 97 mmol/L (98-107); Glomerular Filtration Rate 44.1 mL/min (90-130); Glucose 79 mg/dL (65-115); Osmolality Calculated 276 mOsm/kg (285-295); Sodium 132 mmol/L (136-145)
--- NOTE | 2021-07-31 16:34 | CTR_ITS ---
PROCEDURE INFORMATION: Exam: CT Abdomen And Pelvis With Contrast Exam date and time: 07/31/2021 4:34 PM Age: 45 years old Clinical indication: Nausea, vomiting and diarrhea. Abdominal pain. TECHNIQUE: Imaging protocol: Computed tomography of the abdomen and pelvis with contrast. Radiation optimization: All CT scans at this facility use at least one of these dose optimization techniques: automated exposure control; mA and/or kV adjustment per patient size (includes targeted exams where dose is matched to clinical indication); or iterative reconstruction. Contrast material: OMNI 300; Contrast volume: 75 ml; Contrast route: INTRAVENOUS (IV); COMPARISON: CT abdomen pelvis w con* [id number] 07/30/2021 3:14 PM RADIATION DOSE METRICS: Total DLP (mGy-cm): 665.14 FINDINGS: Lungs: A solid pulmonary nodule in the left lower lobe measures 4.8 mm (image 1). No pericardial effusion. No hiatal hernia. Liver: The liver is enlarged measuring 18 cm. A hepatic hypodensity measuring less than 5 mm is too small to accurately characterize and requires no follow-up. Gallbladder and bile ducts: The gallbladder is distended without definite stone. There is mild prominence of the intra and extrahepatic biliary ducts. The common bile duct measures up to 6.5 mm. Consider ultrasound to further assess. Pancreas: The pancreas is unremarkable. Spleen: The spleen is unremarkable. Adrenal glands: The adrenal glands are unremarkable. Kidneys and ureters: Nonobstructive left renal stone. No hydronephrosis. Subcentimeter renal hypodensities are too small to accurately characterize and require no follow-up. Stomach and bowel: Mild prominence of the wall of the gastric antrum may reflect underdistention. A mild gastritis is a consideration. There is extensive fluid noted throughout the colon. This is nonspecific but can be seen with enteritis or other causes of watery diarrhea. Appendix: The appendix is not identified. Intraperitoneal space: No free intraperitoneal air is seen. Vasculature: No abdominal aortic aneurysm. Lymph nodes: No significant retroperitoneal lymphadenopathy. Urinary bladder: There is excreted contrast in the bladder. Reproductive: The uterus and adnexa are not well assessed. Bones/joints: Acute sacral fracture through the S4 vertebra. CT/CT abdomen pelvis w con* [id number] IMPRESSION: 1. Acute sacral fracture through the S4 vertebra. 2. There is extensive fluid noted throughout the colon. This is nonspecific but can be seen with enteritis or other causes of watery diarrhea. 3. Mild prominence of the wall of the gastric antrum may reflect underdistention. A mild gastritis is a consideration. 4. The gallbladder is distended without definite stone. There is mild prominence of the intra and extrahepatic biliary ducts. The common bile duct measures up to 6.5 mm. Consider ultrasound to further assess. 5. A solid pulmonary nodule in the left lower lobe measures 4.8 mm. As per Fleischner Society 2017 guidelines for follow-up and management of pulmonary nodules: For patients at low risk (minimal or absent history of smoking and of other known risk factors), no routine follow-up. For patient at high risk (history of smoking or of other known risk factors), recommend optional CT at 12 months. 6. Nonobstructive left renal stone. 7. Hepatomegaly.
[2021-07-31] MEDS: lidocaine 1% 5 ML in potassium chloride premix 100 ML 25 ML IV ×2 (16:50→21:14)
[2021-07-31] MEDS: iohexol 300 mg/mL 100 mL Btl IV (17:02)
--- NOTE | 2021-07-31 17:37 | PM.HP ---
Providers/Chief Complaint Primary Care Provider: Gee Simon Chief Complaint: extreme weakness was here yesterday History of Present Illness Rohini Gonzalez is a 45 year old female with past medical history of depression, chronic diarrhea , failure to thrive, came in with chief complaint of watery diarrhea for the last 2 weeks, associated with nausea , non bloody, vomiting , abdominal pain, she denied any, fever, cough, shortness of breath , chest pain , palpitation, sick contact. She was recently in the ER with similar complaint CT abdomen and pelvis done yesterday as well as today was suggestive of gastroenteritis. X-ray chest: Normal Pertinent labs: WBC 10.3 , H&H:9.1/30.4, PLT :616, serum sodium 132 serum potassium 2, BUN and serum creatinine:21/1.3. Potassium replacement was undertaken in the ER, along with IV hydration. Review of Systems Const: Denies: fever(s), chills or diaphoresis Card: Denies: palpitations, edema or swelling of feet/ankles Resp: Denies: dyspnea, productive cough, wheezing or pain on inspiration GI: Denies: constipation : Denies: flank pain Musc: Denies: back pain, extremity pain or extremity swelling Neuro: Denies: headache(s), difficulty walking or confusion Medications/Allergies Home Medications Medication Instructions Recorded Confirmed Last Taken Type alprazolam 1 mg PO QID 01/08/21 07/31/21 01/08/21 08:00 History qyqalgu-xoreddovehwbb-waoobrqs 2 tab PO PRN 01/08/21 07/31/21 01/08/21 03:00 History [Excedrin Migraine] diphenhydramine HCl [Benadryl] 50 mg PO PRN 01/08/21 07/31/21 Unknown History gabapentin 600 mg PO TID 01/08/21 07/31/21 01/08/21 08:00 History pantoprazole 40 mg PO QAM 01/08/21 07/31/21 01/08/21 03:00 History phenolphthalein-docusate sod 2 tab PO PRN 01/08/21 07/31/21 Unknown History [Gentle Lax-Women] quetiapine 600 mg PO BEDTIME 01/08/21 07/31/21 01/07/21 History sertraline 100 mg PO BID 01/08/21 07/31/2101/08/21 08:00 History topiramate 200 mg PO BID 01/08/21 07/31/21 01/08/21 03:00 History zolpidem 10 mg PO BEDTIME 01/08/21 07/31/21 01/07/21 History diphenoxylate-atropine [Lomotil] 1 tab PO TID PRN #10 tab 07/30/21 07/31/21 Unknown Rx tramadol 50 mg PO TID PRN #7 tab 07/30/21 07/31/21 Unknown Rx albuterol sulfate 2 puff INHALATION Q6H PRN 07/31/21 07/31/21 Unknown History amoxicillin-pot clavulanate 1 tab PO BID 07/31/21 07/31/21 Unknown History [Augmentin] bupropion HCl 300 mg PO DAILY 07/31/21 07/31/21 Unknown History dextroamphetamine-amphetamine 20 mg PO DAILY 07/31/21 07/31/21 Unknown History docusate sodium 100 mg PO BID 07/31/21 07/31/21 Unknown History famotidine 20 mg PO DAILY 07/31/21 07/31/21 Unknown History potassium chloride 20 meq PO DAILY 07/31/21 07/31/21 Unknown History trazodone 150 mg PO BEDTIME 07/31/21 07/31/21 Unknown History Allergies Allergy/AdvReac Type Severity Reaction Status Date / Time ciprofloxacin [From Cipro] Allergy ALGY-Hives Verified 07/31/21 14:11 ibuprofen Allergy ALGY-Hives Verified 07/31/21 14:11 ketorolac [From Toradol] Allergy ALGY-Hives Verified 07/31/21 14:11 PFSH Acute PFSH: Medical History (Updated 07/31/21 @ 15:24 by Mohan Porter DO) Chronic diarrhea Depression Failure to thrive Surgical History (Updated 07/31/21 @ 15:25 by Mohan Porter DO) S/P breast augmentation S/P laparotomy Vitals/I&O/Wt Last Vital Signs Temp 98.0 F 07/31/21 13:57 Pulse 88 07/31/21 15:41 Resp 13 07/31/21 15:41 BP 77/53 07/31/21 15:41 Pulse Ox 99 07/31/21 15:41 Weight last 48 hrs Weight 34.019 kg Physical Exam Const: COMMON NORMALS: patient oriented x3 HENMT: COMMON NORMALS: normocephalic and atraumatic HEAD & SCALP: normocephalic and atraumatic Resp: COMMON NORMALS: clear to auscultation bilaterally EFFORT & INSPECTION: Yes symmetric chest movement AUSCULTATION: clear to auscultation bilaterally Cardio: COMMON NORMALS: regular rate, regular rhythm, S1 normal heart sound present, S2 normal heart sound present, No gallops present (Cardio), No murmurs present (Cardio), No rub (Cardio) and Peripheral pulses 2+ throughout RATE: regular rate RHYTHM: regular rhythm HEART SOUNDS: S1 normal heart sound present and S2 normal heart sound present PERIPHERAL PULSES: Peripheral pulses 2+ throughout GI: COMMON NORMALS: Normal to inspection, nondistended, normoactive bowel sounds present, Soft to palpation, non-tender, No hepatosplenomegaly present and no masses AUSCULTATION: Yes normoactive bowel sounds PALPATION: Yes Soft to palpation and Yes No hepatosplenomegaly present RECTAL EXAM: deferred Extremity: COMMON NORMALS: no clubbing, cyanosis or edema and no pedal edema Neuro: COMMON NORMALS: patient oriented x3 Data : 07/31/21 15:13 07/31/21 15:13 A&P Assessment and plan (1) Chronic diarrhea: Status: Acute (2) Failure to thrive: Status: Acute (3) Gastroenteritis: Status: Acute (4) Acute hypokalemia: Status: Acute Additional A&P Information 45 year old female with past medical history of depression, chronic diarrhea , failure to thrive, came in with chief complaint of watery diarrhea for the last 2 weeks, associated with nausea , non bloody, vomiting , abdominal pain, she denied any, fever, cough, shortness of breath , chest pain , palpitation, sick contact. She was recently in the ER with similar complaint CT abdomen and pelvis done yesterday as well as today was suggestive of gastroenteritis. #Chronic diarrhea: Follow stool studies( C. difficile, enteric bacterial pathogen, enteric parasitic panel) , Continue IV hydration, encourage p.o. intake. #Severe hypokalemia: Monitor serum potassium: And continue to replace. Continue telemetry #Failure to thrive: Encourage p.o. intake, will involve dietitian in patient care. Monitor for refeeding syndrome #CODE STATUS:Full Code #DVT PPX : On Lovenox Attestations Medical Necessity Statement*: Patient is to be in hospital for management of chronic diarrhea severe hypokalemia, failure to thrive, to correct electrolytes, IV hydration. 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
[2021-07-31 18:08] VITALS: BP 90/63; PULSE 91; RESP 18; O2SAT 100
[2021-07-31 20:00] VITALS: BP 93/74; PULSE 90; RESP 17; TEMP 36.6; O2SAT 93
[2021-07-31 20:30] VITALS: BMI 12.7
[2021-07-31] MEDS: ondansetron 2 mg/ML SDV 2 mL 4 MG IVP (21:05)
[2021-07-31 21:07] VITALS: RESP 16
[2021-07-31] MEDS: oxyCODONE-APAP 5-325 mg Tablet 1 TAB PO (21:07)
[2021-07-31] MEDS: zolpidem 5 mg Tablet 10 MG PO (21:08)
[2021-07-31] MEDS: sertraline 100 mg Tablet PO (21:08)
[2021-07-31] MEDS: trazodone 150 mg Tablet PO (21:08)
[2021-08-01] VITALS (8 sets, daily range): BP systolic 86–98; BP diastolic 55–66; PULSE 98–110; RESP 16–18; TEMP 36.8–37.9; O2SAT 75–98; BMI 12.7
--- NOTE | 2021-08-01 00:49 | PC.NURSE ---
i reported high pulse 103 to nurse
[2021-08-01] MEDS: sodium chlor 0.9% + KCl 20 mEq 20 MEQ/1,000 ML BAG 100 MEQ IV ×3 (01:25→23:11)
[2021-08-01] MEDS: oxyCODONE-APAP 5-325 mg Tablet 1 TAB PO ×2 (04:56→14:36)
[2021-08-01 05:41] LABS: Basophils # 0.1 10^3/uL (0.0-0.1); Basophils % 0.7 %; Eosinophils # 0.1 10^3/uL (0.0-0.8); Eosinophils % 1.4 %; Hematocrit 28.2 % (37.0-47.0); Hemoglobin 8.4 g/dL (11.5-15.3); Lymphocytes # 1.6 10^3/uL (0.8-4.8); Lymphocytes % 19.6 %; Mean Corpuscular HGB Conc 29.8 g/dL (30.0-36.0); Mean Corpuscular Volume 73.8 fl (81-99); Monocytes # 0.6 10^3/uL (0.2-0.9); Neutrophils # 5.82 10^3/uL (1.8-7.7); Neutrophils % 70.1 %; Nucleated Red Blood Cells % 0 %; Platelet Count 608 10^3/cmm (130-400); Red Blood Count 3.82 10^6/uL (4.1-5.3); Red Cell Distribution Width 19.5 % (12.1-15.1); White Blood Count 8.3 10^3/uL (4.0-10.0)
[2021-08-01 05:56] LABS: Anion Gap 19.1 (5-19); Blood Urea Nitrogen 16 mg/dL (6-20); Calcium 7.8 mg/dL (8.5-10.5); Carbon Dioxide 16 mmol/L (22-29); Chloride 104 mmol/L (98-107); Glomerular Filtration Rate 53.5 mL/min (90-130); Glucose 96 mg/dL (65-115); Magnesium 1.7 mg/dL (1.7-2.3); Osmolality Calculated 283 mOsm/kg (285-295); Potassium 3.1 mmol/L (3.5-5.1); Sodium 136 mmol/L (136-145)
[2021-08-01] MEDS: sertraline 100 mg Tablet PO ×2 (07:37→20:03)
[2021-08-01] MEDS: buPROPion XL (24 HR) 300 mg Tablet PO (07:37)
[2021-08-01] MEDS: acetaminophen 325 mg Tablet 650 MG PO (07:37)
[2021-08-01] MEDS: lidocaine 1% 5 ML in potassium chloride premix 100 ML 25 ML IV (10:00)
--- NOTE | 2021-08-01 11:06 | PM.PN ---
Subjective Subjective: Interval history: Patient was seen and examined this morning, continues to complain of 2-3 episodes of watery diarrhea. T-max: 100.3. Medications: Reviewed: Yes Vitals/I&O/Wt Last Vital Signs Temp 100.3 F H 08/01/21 07:22 Pulse 105 H 08/01/21 07:22 Resp 18 08/01/21 07:22 BP 86/55 08/01/21 07:22 Pulse Ox 97 08/01/21 07:22 07/31/21 08/01/21 08/01/21 22:59 06:59 14:59 Intake Total 585 / 585 1105 / 1690 120 / 120 Output Total 100 / 100 620 / 720 Balance 485 / 485 485 / 970 120 / 120 Weight last 48 hrs Weight 36.741 kg Weight 36.741 kg Weight 34.019 kg Physical Exam Const: COMMON NORMALS: patient oriented x3 HENMT: COMMON NORMALS: normocephalic and atraumatic HEAD & SCALP: normocephalic and atraumatic Resp: COMMON NORMALS: clear to auscultation bilaterally EFFORT & INSPECTION: Yes symmetric chest movement AUSCULTATION: clear to auscultation bilaterally Cardio: COMMON NORMALS: regular rate, regular rhythm, S1 normal heart sound present, S2 normal heart sound present, No gallops present (Cardio), No murmurs present (Cardio), No rub (Cardio) and Peripheral pulses 2+ throughout RATE: regular rate RHYTHM: regular rhythm HEART SOUNDS: S1 normal heart sound present and S2 normal heart sound present PERIPHERAL PULSES: Peripheral pulses 2+ throughout GI: COMMON NORMALS: Normal to inspection, nondistended, normoactive bowel sounds present, Soft to palpation, non-tender, No hepatosplenomegaly present and no masses AUSCULTATION: Yes normoactive bowel sounds PALPATION: Yes Soft to palpation and Yes No hepatosplenomegaly present RECTAL EXAM: deferred Extremity: COMMON NORMALS: no clubbing, cyanosis or edema and no pedal edema Neuro: COMMON NORMALS: patient oriented x3 Data : 08/01/21 04:23 08/01/21 04:23 Micro: Microbiology 07/31/21 18:15 Enteric Pathogens (PCR) - Final Stool - Stool Aspirate 07/31/21 14:48 C.difficile Toxin B Gene (PCR) - Final Stool - Stool Aspirate A&P Assessment and plan (1) Chronic diarrhea: Status: Acute (2) Failure to thrive: Status: Acute (3) Gastroenteritis: Status: Acute (4) Acute hypokalemia: Status: Acute (5) MARLEEN (acute kidney injury): Status: Acute Additional A&P Information 45 year old female with past medical history of depression, chronic diarrhea , failure to thrive, came in with chief complaint of watery diarrhea for the last 2 weeks, associated with nausea , non bloody, vomiting , abdominal pain, she denied any, fever, cough, shortness of breath , chest pain , palpitation, sick contact. She was recently in the ER with similar complaint CT abdomen and pelvis done yesterday as well as today was suggestive of gastroenteritis. #Chronic diarrhea: Follow stool studies( C. difficile, enteric bacterial pathogen, enteric parasitic panel) , C. difficile negative: enteric bacterial pathogen: Negative , enteric parasitic panel: Negative On p.o. Lomotil Continue IV hydration, encourage p.o. intake. #MARLEEN : Likely prerenal MARLEEN secondary to diarrhea. #Severe hypokalemia: Monitor serum potassium: And continue to replace. Continue telemetry #Hypophosphatemia: Potassium phosphate 15 mmol x1 dose #UTI ;Urine culture gram-negative luis m: Currently on ceftriaxone. #Failure to thrive: Encourage p.o. intake, will involve dietitian in patient care. Monitor for refeeding syndrome #CODE STATUS:Full Code #DVT PPX : On Lovenox Attestations Medical Necessity Statement*: Patient needs to be in hospital for management of chronic diarrhea, electrolyte imbalance, need for IV hydration, Coding Level of Care Code Acute Supervisor Policy Change Cler[employer] for [employer] [facility] [employer] Fwd Exam Detailed Diagnoses Chronic diarrhea K52.9 Failure to thrive Gastroenteritis K52.9 Acute hypokalemia E87.6 MARLEEN (acute kidney injury) N17.9
--- NOTE | 2021-08-01 11:29 | PC.CHAP ---
Pastoral Care Encounter/Spiritual Assessment Type of Contact [] Declined distributor sales manager visit [] Patient/Family/Request visit [] Outpatient visit [] Follow-up visit [] Physician referral [] Code/Alert [xx] Routine visit [] Staff referral [] Actively dying [] Patient sleeping [] Family support [] [] Out of room [] Palliative care [] [] Receiving care in room [] Pre-surgical visit [] Trauma [] Long length of stay [] ICU visit [] Other: Relational/Emotional Strength [xx] Patient feels connected with others/family/visitors/staff [xx] Distress [] Loneliness/isolation [] Abandonment Spirituality of Patient [xx] Person of Samantha [xx] Attends Buddhist of their Samantha [xx] Believes in Prayer [xx] Reads Bible or Mandaen materials [] There are Spiritual issues to be addressed Bureau Chief Interventions [xx] Prayer [xx] Active listening [xx] Non-anxious presence [] Spiritual/emotional support [] Crisis/trauma care [] Spiritual counseling [] Bereavement support [] Provided bereavement packet [xx] Provided Bible/devotional materials [] Provided toy/stuffed animal, coloring book to patient or family member [] Provided Communion [] Anointing/[place] [] Salvation [xx] Completed spiritual assessment [] Other: Impact on Illness or Injury [] Angry [] Fearful [] Anxious [] Often cries [] Exhaustion [xx] Unable to work [xx] Unable to attend rastafari [] Unable to walk/stand [] Unable to read [] Unable to drive [xx] Unable to eat/drink [] Unable to sleep [xx] Unable to be with family [] Patient intubated [] Other: Summary Patient is feeling better at present. She requested prayer for many different needs and concerns. She wants to be home for Elana but this is unlikely. Time spent with patient 10 minutes
[2021-08-01] MEDS: ondansetron 2 mg/ML SDV 2 mL 4 MG IVP ×2 (13:14→23:08)
[2021-08-01] MEDS: cefTRIAXone 1,000 MG in sodium chloride 0.9% (plus) 50 ML 100 MG IV (14:36)
[2021-08-01] MEDS: diphenoxylate/atropine Tablet 1 TAB PO ×2 (14:43→20:03)
[2021-08-01] MEDS: trazodone 150 mg Tablet PO (20:03)
[2021-08-01] MEDS: zolpidem 5 mg Tablet 10 MG PO (20:04)
--- NOTE | 2021-08-01 20:09 | PC.NURSE ---
i reported high temp 99.9 to nurse
[2021-08-02] VITALS (7 sets, daily range): BP systolic 76–100; BP diastolic 40–69; PULSE 94–99; RESP 16–18; TEMP 36.7–37; O2SAT 97–99
[2021-08-02] MEDS: oxyCODONE-APAP 5-325 mg Tablet 1 TAB PO (04:27)
[2021-08-02 05:19] LABS: Basophils # 0.1 10^3/uL (0.0-0.1); Basophils % 0.8 %; Eosinophils # 0.2 10^3/uL (0.0-0.8); Eosinophils % 2.5 %; Hematocrit 27.7 % (37.0-47.0); Hemoglobin 7.9 g/dL (11.5-15.3); Lymphocytes # 1.7 10^3/uL (0.8-4.8); Lymphocytes % 27.4 %; Mean Corpuscular HGB Conc 28.5 g/dL (30.0-36.0); Mean Corpuscular Hemoglobin 21.9 pg (28.0-34.0); Mean Corpuscular Volume 76.9 fl (81-99); Mean Platelet Volume 9.1 fL (7.4-10.4); Monocytes # 0.6 10^3/uL (0.2-0.9); Monocytes % 9.1 %; Neutrophils # 3.71 10^3/uL (1.8-7.7); Neutrophils % 58.5 %; Nucleated Red Blood Cells % 0 %; Platelet Count 564 10^3/cmm (130-400); Red Cell Distribution Width 19.9 % (12.1-15.1); White Blood Count 6.4 10^3/uL (4.0-10.0)
[2021-08-02 05:40] LABS: Anion Gap 13.7 (5-19); Blood Urea Nitrogen 8 mg/dL (6-20); Calcium 7.8 mg/dL (8.5-10.5); Carbon Dioxide 16 mmol/L (22-29); Chloride 112 mmol/L (98-107); Glomerular Filtration Rate 77.2 mL/min (90-130); Glucose 86 mg/dL (65-115); Magnesium 1.5 mg/dL (1.7-2.3); Osmolality Calculated 284 mOsm/kg (285-295); Phosphorus 2.2 mg/dL (2.5-4.5); Potassium 3.7 mmol/L (3.5-5.1); Sodium 138 mmol/L (136-145)
[2021-08-02] MEDS: diphenoxylate/atropine Tablet 1 TAB PO (08:08)
[2021-08-02] MEDS: acetaminophen 325 mg Tablet 650 MG PO (08:08)
[2021-08-02] MEDS: sertraline 100 mg Tablet PO (08:08)
[2021-08-02] MEDS: sodium chlor 0.9% + KCl 20 mEq 20 MEQ/1,000 ML BAG 100 MEQ IV (08:10)
[2021-08-02] MEDS: buPROPion XL (24 HR) 300 mg Tablet PO (08:12)
[2021-08-02] MEDS: ondansetron 2 mg/ML SDV 2 mL 4 MG IVP (08:28)
[2021-08-02] MEDS: diphenhydrAMINE 25 mg Capsule PO (10:36)
--- NOTE | 2021-08-02 13:15 | P.DS_ITS ---
Discharge Providers Date of Admission: 07/31/21 17:37 Date of Discharge: August 02, 2021 Attending Provider at Admission: Leroy Olivares MD Attending Provider at Discharge: Leroy Olivares MD Primary Care Provider: Gee Simon Diagnoses at Discharge Discharge Diagnosis (1) Chronic diarrhea: Status: Acute (2) Failure to thrive: Status: Acute (3) Gastroenteritis: Status: Acute (4) Acute hypokalemia: Status: Acute (5) MARLEEN (acute kidney injury): Status: Acute Reason for Visit Reason for Visit: extreme weakness was here yesterday Hospital Course Hospital Course 45 year old female with past medical history of depression, chronic diarrhea , failure to thrive, came in with chief complaint of watery diarrhea for the last 2 weeks, associated with nausea , non bloody, vomiting , abdominal pain, she denied any, fever, cough, shortness of breath , chest pain , palpitation, sick contact. She was recently in the ER with similar complaint CT abdomen and pelvis done was suggestive of gastroenteritis. She was admitted for the management of Chronic diarrhea likely 2/2 IBS stool C. difficile, enteric bacterial pathogen, enteric parasitic panel were negative, she was kept on I.V hydration, as well as on po lomotil she was also managed for severe was managed for severe electrolytes abnormalities ( Hypokalemia, Hypophosphatemia, hypomagnesemia,both with oral and i.v medicine. for her UTI she was kept on I.V abxs and was discharged on po augmention , urine culture grew E.Coli.for her Failure to thrive she was encouraged to increase her po intake as well as indulge in balanced eating habits. she was also manged for pre renal MARLEEN secondary to diarrhea and responded well to I.V hydration. She responded well to above medical management and is being discharged in stable condition to home. She will continue to follow her PCP as outpatient. Physical Exam Const: COMMON NORMALS: patient oriented x3 HENMT: COMMON NORMALS: normocephalic and atraumatic HEAD & SCALP: normocephalic and atraumatic Resp: COMMON NORMALS: clear to auscultation bilaterally EFFORT & INSPECTION: Yes symmetric chest movement AUSCULTATION: clear to auscultation bilaterally Cardio: COMMON NORMALS: regular rate, regular rhythm, S1 normal heart sound present, S2 normal heart sound present, No gallops present (Cardio), No murmurs present (Cardio), No rub (Cardio) and Peripheral pulses 2+ throughout RATE: regular rate RHYTHM: regular rhythm HEART SOUNDS: S1 normal heart sound present and S2 normal heart sound present PERIPHERAL PULSES: Peripheral pulses 2+ throughout GI: COMMON NORMALS: Normal to inspection, nondistended, normoactive bowel sounds present, Soft to palpation, non-tender, No hepatosplenomegaly present and no masses AUSCULTATION: Yes normoactive bowel sounds PALPATION: Yes Soft to palpation and Yes No hepatosplenomegaly present RECTAL EXAM: deferred Extremity: COMMON NORMALS: no clubbing, cyanosis or edema and no pedal edema Neuro: COMMON NORMALS: patient oriented x3 Discharge Data Data Completed and Pending: Completed Studies During Hospitalization Category Date Time Status CT abdomen pelvis w con* [id number] Stat Cat Scan 07/31/21 16:34 Completed XR chest 1V jeane ble [id number] Stat Exams 07/31/21 14:24 Completed Pending at discharge Category Date Time Status Basic Metabolic P shannon AM LABS Lab 08/03/21 04:00 Ordered Blood Culture Rou jim Lab 08/01/21 14:28 Results Complete Blood Co unt w/Auto AM LABS Lab 08/03/21 04:00 Ordered Magnesium AM LABS Lab 08/03/21 04:00 Ordered Phosphorus AM LAB S Lab 08/03/21 04:00 Ordered Labs from last 24 hours 08/02/21 08/02/21 04:00 04:00 WBC 6.4 RBC 3.60 L Hgb 7.9 L Hct 27.7 L MCV 76.9 L MCH 21.9 L MCHC 28.5 L RDW 19.9 H Plt Count 564 H MPV 9.1 Neut % (Auto) 58.5 Lymph % (Auto) 27.4 Scurry % (Auto) 9.1 Eos % (Auto) 2.5 Baso % (Auto) 0.8 Neut # (Auto) 3.71 Lymph # (Auto) 1.7 Scurry # (Auto) 0.6 Eos # (Auto) 0.2 Baso # (Auto) 0.1 Nucleated RBC % (a uto) 0 Nucleated RBCs # 0.0 Sodium 138 Potassium 3.7 Chloride 112 H Carbon Dioxide 16 L Anion Gap 13.7 BUN 8 Creatinine 0.8 GFR Calculation 77.2 L Glucose 86 Calculated Osmolal ity 284 L Calcium 7.8 L Phosphorus 2.2 L Magnesium 1.5 L Vitals: Last Vital Signs Temp 98.6 F 08/02/21 11:10 Pulse 95 08/02/21 11:10 Resp 18 08/02/21 11:10 BP 76/40 08/02/21 11:10 Pulse Ox 98 08/02/21 11:10 Discharge Plan Discharge Patient Disposition: Home Condition: Stable Prescriptions: New Augmentin 500-125 mg tablet 1 tab PO DAILY Qty: 7 RF: 0 Klor-Con M20 20 mEq tablet,ER particles/crystals 20 meq PO DAILY Qty: 30 RF: 0 Continued gabapentin 600 mg tablet 600 mg PO TID RF: 0 quetiapine 300 mg tablet 600 mg PO BEDTIME RF: 0 alprazolam 1 mg tablet 1 mg PO QID RF: 0 sertraline 100 mg tablet 100 mg PO BID RF: 0 pantoprazole 40 mg tablet,delayed release (DR/EC) 40 mg PO QAM RF: 0 topiramate 200 mg tablet 200 mg PO BID RF: 0 zolpidem 10 mg tablet 10 mg PO BEDTIME RF: 0 diphenhydramine HCl [Benadryl] 25 mg Capsule 50 mg PO PRN RF: 0 phenolphthalein-docusate sod 65-100 mg Tablet 2 tab PO PRN RF: 0 Excedrin Migraine 250-250-65 mg Tablet 2 tab PO PRN RF: 0 famotidine 20 mg tablet 20 mg PO DAILY RF: 0 trazodone 150 mg Tablet 150 mg PO BEDTIME RF: 0 dextroamphetamine-amphetamine 20 mg tablet 20 mg PO DAILY RF: 0 albuterol sulfate 90 mcg/actuation HFA aerosol inhaler 2 puff INHALATION Q6H PRN (Reason: Shortness Of Breath) RF: 0 bupropion HCl 300 mg tablet extended release 24 hr 300 mg PO DAILY RF: 0 potassium chloride 20 mEq/15 mL liquid 20 meq PO DAILY RF: 0 diphenoxylate-atropine [Lomotil] 2.5-0.025 mg tablet 1 tab PO TID PRN (Reason: diarrhea) Qty: 10 RF: 0 tramadol 50 mg tablet 50 mg PO TID PRN (Reason: pain) Qty: 7 RF: 0 Discontinued docusate sodium 100 mg Capsule 100 mg PO BID RF: 0 amoxicillin-pot clavulanate [Augmentin] 875-125 mg tablet 1 tab PO BID RF: 0 Discharge Orders: Discharge Order (Routine); Ordered 08/02/21 Ordered By: Leroy Olivares Referrals: Gee Simon [Primary Care Provider] - 1 week (Please call Wednesday morning to schedule a hospital follow-up appointment. ) Discharge Diet: Regular Discharge Activity: Resume usual activity Patient Instructions: Potassium Chloride (By mouth), Amoxicillin/Clavulanate Potassium (By mouth), Acute Kidney Injury (GEN), Opioid Safety Discharge Attestations Time Spent in Discharge Care*: less than 30 min Specific Discharge Activities: educating patient, educating and/or supporting family/caregiver, discussing with pcp/other providers, discussing with case manager/social workers/dc planners, documenting/other paperwork and evaluating patient/reviewing data Status at Discharge: Cognitive status at discharge: cognitively intact , Behavioral status at discharge: cooperative , Functional status at discharge: independent ambulation Overall status at discharge: patient is back to baseline Quality Metrics Clinical Quality Measures During this hospital stay, did patient experience: None Coding Level of Care Code Acute Chg DC note Diagnoses Chronic diarrhea K52.9 Failure to thrive Gastroenteritis K52.9 Acute hypokalemia E87.6 MARLEEN (acute kidney injury) N17.9
== END 2021-08-02 13:30 | disposition home or self-care (01) ==
LOC: ER 18:37 → MEDSURG 19:09
PROVIDERS: Admitting Provider Internal Medicine; Emergency Provider Family Medicine; PCP Family Medicine; Visit Provider Internal Medicine
DX: K52.9 Noninfective gastroenteritis and colitis, unspecified (principal); E87.6 Hypokalemia; N17.9 Acute kidney failure, unspecified; R62.7 Adult failure to thrive; Z68.1 Body mass index [BMI] 19.9 or less, adult; E83.39 Other disorders of phosphorus metabolism
CPT/HCPCS: 36415; 71045; 74177; 80048; 80053; 81001; 83690; 83735; 84100; 85025; 87040; 87077; 87086; 87186; 87493; 87506; 96360; 96365; 96366; 96367; 99283; 99285; G0378; J0696; J2405; J3480; J7030; Q9967

== ENCOUNTER 2021-09-25 16:57 | Observation (INO) | payer MEDICARE, MEDICAID, SELFPAY ==
[2021-09-25 16:58] VITALS: BP 102/76; PULSE 100; RESP 13; TEMP 36.4; O2SAT 100
--- NOTE | 2021-09-25 17:10 | CTR_ITS ---
PROCEDURE INFORMATION: Exam: CT Head Without Contrast Exam date and time: 09/25/2021 5:10 PM Age: 46 years old Clinical indication: Altered mental status/memory loss; Additional info: AMS TECHNIQUE: Imaging protocol: Computed tomography of the head without contrast. Radiation optimization: All CT scans at this facility use at least one of these dose optimization techniques: automated exposure control; mA and/or kV adjustment per patient size (includes targeted exams where dose is matched to clinical indication); or iterative reconstruction. COMPARISON: No relevant prior studies available. RADIATION DOSE METRICS: Total DLP (mGy-cm): 941.13 FINDINGS: Brain: Normal. No hemorrhage. Unremarkable white matter. No mass effect. Cerebral ventricles: No ventriculomegaly. Paranasal sinuses: Visualized sinuses are unremarkable. No fluid levels. Mastoid air cells: Visualized mastoid air cells are well aerated. Bones/joints: Unremarkable. No acute fracture. Soft tissues: Unremarkable. CT/CT head wo con* [id number] IMPRESSION: No acute intracranial abnormality.
--- NOTE | 2021-09-25 17:10 | XR_ITS ---
WS: [id number] PORTABLE CHEST HISTORY: ams COMPARISON: 07/31/2021 Lungs are clear and well expanded. No pleural effusion or pneumothorax. Cardiac size: Normal. Mediastinum/Aorta: Normal mediastinum. No osseous abnormality seen. XR/XR chest 1V portable [id number] IMPRESSION: Unremarkable portable chest.
--- NOTE | 2021-09-25 17:11 | ECG_ITS ---
[facility] Test Date: 2021-09-25 Pat Name: Rohini Gonzalez Department: Room: Gender: Female Union Carpenter: : 1975 Requested By: Celeste Andrade Order Number: [id number] Chuck MD: Odell Og M.D. Measurements Intervals [place] Rate: 99 P: 76 KS: 139 QRS: 73 QRSD: 80 T: 83 QT: 390 QTc: 501 Interpretive Statements SINUS RHYTHM POSSIBLE RIGHT ATRIAL ENLARGEMENT [0.25mV P-WAVE] POSSIBLE LEFT ATRIAL ENLARGEMENT [-0.1mV P-WAVE IN V1/V2] Compared to ECG 01/08/2021 14:49:29 Sinus tachycardia no longer present ST (T wave) deviation no longer present Electronically Signed On 09-25-2021 20:45:50 PRODUCT DEVELOPMENT ECOLOGIST by Odell Og M.D. [id number]
[2021-09-25 17:31] LABS: Basophils # 0.1 10^3/uL (0.0-0.1); Basophils % 0.9 %; Eosinophils # 0.2 10^3/uL (0.0-0.8); Eosinophils % 3.2 %; Hematocrit 31.4 % (37.0-47.0); Hemoglobin 8.9 g/dL (11.5-15.3); Lymphocytes % 28.6 %; Mean Corpuscular HGB Conc 28.3 g/dL (30.0-36.0); Mean Corpuscular Hemoglobin 23.5 pg (28.0-34.0); Mean Corpuscular Volume 83.1 fl (81-99); Mean Platelet Volume 9.4 fL (7.4-10.4); Monocytes # 0.4 10^3/uL (0.2-0.9); Monocytes % 5.8 %; Neutrophils # 4.21 10^3/uL (1.8-7.7); Neutrophils % 61.2 %; Nucleated Red Blood Cells % 0 %; Platelet Count 519 10^3/cmm (130-400); Red Blood Count 3.78 10^6/uL (4.1-5.3); Red Cell Distribution Width 21.9 % (12.1-15.1); White Blood Count 6.9 10^3/uL (4.0-10.0)
[2021-09-25 17:53] LABS: Troponin(5th) Baseline 23 ng/L (0-10)
[2021-09-25 18:06] LABS: Alanine Aminotransferase 14 U/L (0-33); Alkaline Phosphatase 107 IU/L (35-105); Anion Gap 15.9 (5-19); Aspartate Amino Transferase 12 U/L (0-32); Blood Urea Nitrogen 17 mg/dL (6-20); Calcium 9.2 mg/dL (8.5-10.5); Carbon Dioxide 22 mmol/L (22-29); Chloride 103 mmol/L (98-107); Globulin 2.1 g/dL (1.3-4.6); Glomerular Filtration Rate 107.2 mL/min (90-130); Glucose 92 mg/dL (65-115); Lipase 41 U/L (13-60); Osmolality Calculated 285 mOsm/kg (285-295); Phosphorus 4.4 mg/dL (2.5-4.5); Potassium 3.9 mmol/L (3.5-5.1); Sodium 137 mmol/L (136-145); Thyroid Stimulating Hormone 2.52 uIU/mL (0.27-4.20); Total Bilirubin 0.2 mg/dL (0.15-1.2); Total Protein 6.1 g/dL (6.6-8.7)
[2021-09-25 18:11] LABS: Acetaminophen < 5.0 ug/mL (10-30); Salicylate < 0.3 mg/dL (3-10)
--- NOTE | 2021-09-25 18:33 | ED_ITS ---
HPI - Altered Mental Status General: Chief Complaint: Altered Mental Status Stated Complaint: AMS Time Seen by Provider: 09/25/21 16:58 [facility] ED PFSH: Medical History (Updated 08/07/21 @ 10:07 by Mohan Porter DO) Acute hypokalemia MARLEEN (acute kidney injury) Chronic diarrhea Depression Failure to thrive Gastroenteritis Surgical History (Updated 07/31/21 @ 15:25 by Mohan Porter DO) S/P breast augmentation S/P laparotomy Course Vital Signs: Vital signs: Vital Signs Temperature 97.6 F 09/25/21 16:58 Pulse Rate 100 09/25/21 16:58 Respiratory Rate 13 09/25/21 16:58 Blood Pressure 102/76 09/25/21 16:58 Pulse Oximetry 100 09/25/21 16:58 MDM - Altered Mental Status Lab Data : 09/25/21 17:25 09/25/21 17:[address] 09/25/21 17:10 IMPRESSION: No acute intracranial abnormality. Laboratory Results WBC 6.9 10^3/uL (4.0-10.0) 09/25/21 17:25 RBC 3.78 10^6/uL (4.1-5.3) L 09/25/21 17:25 Hgb 8.9 g/dL (11.5-15.3) L 09/25/21 17:25 Hct 31.4 % (37.0-47.0) L 09/25/21 17:25 MCV 83.1 fl (81-99) 09/25/21 17:25 MCH 23.5 pg (28.0-34.0) L 09/25/21 17:25 MCHC 28.3 g/dL (30.0-36.0) L 09/25/21 17:25 RDW 21.9 % (12.1-15.1) H 09/25/21 17:25 Plt Count 519 10^3/cmm (130-400) H 09/25/21 17:25 MPV 9.4 fL (7.4-10.4) 09/25/21 17:25 Neut % (Auto) 61.2 % 09/25/21 17: Lymph % (Auto) 28.6 % 09/25/21 17:25 [place] % (Auto) 5.8 % 09/25/21 17:25 Eos % (Auto) 3.2 % 09/25/21 17:25 Baso % (Auto) 0.9 % 09/25/21: Neut # (Auto) 4.21 10^3/uL (1.8-7.7) 09/25/21: Lymph # (Auto) 2.0 10^3/uL (0.8-4.8) 09/25/21: [place] # (Auto) 0.4 10^3/uL (0.2-0.9) 09/25/21: Eos # (Auto) 0.2 10^3/uL (0.0-0.8) 09/25/21: Baso # (Auto) 0.1 10^3/uL (0.0-0.1) 09/25/21: Nucleated RBC % (auto) 0 % 09/25/21: Nucleated RBCs # 0.0 /100WBC 09/25/21: Sodium 137 mmol/L (136-145) 09/25/21 17:25 Potassium 3.9 mmol/L (3.5-5.1) 09/25/21: Chloride 103 mmol/L (98-107) 09/25/21: Carbon Dioxide 22 mmol/L (22-29) 09/25/21 17:25 Anion Gap 15.9 (5-19) 09/25/21:25 BUN 17 mg/dL (6-20) 09/25/21: Creatinine 0.6 mg/dL (0.5-0.9) 09/25/21:25 GFR Calculation 107.2 mL/min (90-130) 09/25/21:25 Glucose 92 mg/dL (65-115) 09/25/21: Calculated Osmolality 285 mOsm/kg (285-295) 09/25/21: Calcium 9.2 mg/dL (8.5-10.5) 09/25/21: Phosphorus 4.4 mg/dL (2.5-4.5) 09/25/21:25 Total Bilirubin 0.2 mg/dL (0.15-1.2) 02/17/22 17:25 AST 12 U/L (0-32) 09/25/21 17:25 ALT 14 U/L (0-33) 09/25/21 17:25 Alkaline Phosphatase 107 IU/L (35-105) H 09/25/21 17:25 Troponin T Baseline 23 ng/L (0-10) H 09/25/21 17:25 Total Protein 6.1 g/dL (6.6-8.7) L 09/25/21 17:25 Albumin 4.0 g/dL (3.5-5.2) 09/25/21 17:25 Globulin 2.1 g/dL (1.3-4.6) 09/25/21: Lipase 41 U/L (13-60) 09/25/21: TSH 2.52 uIU/mL (0.27-4.20) 09/25/21:25 Salicylates < 0.3 mg/dL (3-10) L 09/25/21: Acetaminophen < 5.0 ug/mL (10-30) L 09/25/21 17:25 Discharge Plan Discharge Condition: Stable Prescriptions: No Action gabapentin 600 mg tablet 600 mg PO BID 0RF quetiapine 300 mg tablet 600 mg PO BEDTIME 0RF alprazolam 1 mg tablet 1 mg PO QID PRN (Reason: Anxiety) 0RF sertraline 100 mg tablet 100 mg PO BID 0RF pantoprazole 40 mg tablet,delayed release (DR/EC) 40 mg PO QAM 0RF topiramate 200 mg tablet 200 mg PO BEDTIME 0RF zolpidem 10 mg tablet 10 mg PO BEDTIME 0RF diphenhydramine HCl [Benadryl] 25 mg Capsule 50 mg PO PRN 0RF phenolphthalein-docusate sod 65-100 mg Tablet 2 tab PO PRN 0RF Excedrin Migraine 250-250-65 mg Tablet 2 tab PO PRN 0RF famotidine 20 mg tablet 20 mg PO DAILY 0RF trazodone 150 mg Tablet 150 mg PO BEDTIME 0RF dextroamphetamine-amphetamine 20 mg tablet 20 mg PO DAILY 0RF albuterol sulfate 90 mcg/actuation HFA aerosol inhaler 2 puff INHALATION Q6H PRN (Reason: Shortness Of Breath) 0RF bupropion HCl 300 mg tablet extended release 24 hr 300 mg PO DAILY 0RF potassium chloride 20 mEq/15 mL liquid 20 meq PO DAILY 0RF temazepam 15 mg Capsule 15 mg PO BEDTIME 0RF diphenoxylate-atropine [Lomotil] 2.5-0.025 mg tablet 1 tab PO TID PRN (Reason: diarrhea) Qty: 10 0RF tramadol 50 mg tablet 50 mg PO TID PRN (Reason: pain) Qty: 7 0RF Referrals: Gee Simon [Primary Care Provider] - Coding Level of Care Code ED Remelt Pan Tank Operator for Chg Nessa
--- NOTE | 2021-09-25 18:41 | ED_ITS ---
HPI - General Adult General: Chief complaint: Altered Mental Status Stated complaint: AMS Time Seen by Provider: 09/25/21 16:58 History of Present Illness: Patient is a 46-year-old female with a history of chronic anorexia, 30 to thrive, diarrhea, depression who presents the emergency room for concerns of altered mental status. Patient lives at home with her significant others who found her confused unresponsive earlier today. Patient was brought to the emergency room for an evaluation by EMS. EMS gave patient 2 mg of Narcan in route any significant improvement in symptoms. Glucose appears to be within normal limit. On arrival, patient somnolent, resting history limited. Onset:earlier today Duration:ongoing Location:home Severity:moderate/severe Review of Systems General: Reports: ROS unobtainable due to mental status PFSH ED PFSH: Medical History (Updated 09/25/21 @ 22:58 by Jeff Christine MD) Acute hypokalemia MARLEEN (acute kidney injury) Chronic diarrhea Depression Failure to thrive Gastroenteritis Surgical History (Updated 09/25/21 @ 22:54 by Jeff Christine MD) History of appendectomy History of tonsillectomy History of tubal ligation S/P breast augmentation S/P laparotomy Social History (Updated 09/25/21 @ 22:55 by Jeff Christine MD) Smoking and tobacco status: current every day smoker Alcohol intake: never Physical Exam HENMT: COMMON NORMALS: atraumatic HEAD & SCALP: atraumatic MOUTH: moist mucous membranes not abnormal Eye: COMMON NORMALS: EOMs intact bilaterally and conjunctivae normal CONJUNCTIVA: Yes conjunctivae normal Neck/C-Spine: COMMON NORMALS: full ROM and supple Resp: COMMON NORMALS: normal respiratory effort and clear to auscultation bilaterally AUSCULTATION: clear to auscultation bilaterally Cardio: COMMON NORMALS: regular rate RATE: regular rate GI: COMMON NORMALS: Soft to palpation and non-tender PALPATION: Yes Soft to palpation Extremity: COMMON NORMALS: full ROM Neuro: SENSORIUM/ORIENTATION: Yes somnolent MOTOR EXAM: Abnormal motor strength present and Other motor observations present (no focal motor deficits) OTHER: + Moving all extremities, occasionally answering questions, somnolent, arousable to sternal not, GCS of 11 Psych: OTHER: +unable to assess given AMS Course Vital Signs: Vital signs: Vital Signs Temperature 98.6 F 09/26/21 07:37 Pulse Rate 109 H 09/26/21 10:53 Respiratory Rate 18 09/26/21 07:37 Blood Pressure 100/64 09/26/21 07:37 Pulse Oximetry 98 09/26/21 10:53 [facility] - General Adult Medical Decision Making Patient is a 46-year-old female with history of chronic anorexia, failure to thrive who presents the emergency room for concerns of altered mental status. On arrival, patient is afebrile, GCS of 11 somnolent sleeping. Rest of history within normal limit. Will observe the emergency room patient become more awake alert. Patient received folic acid and thiamine and phosphorus. CT Brain negative for any acute finding. XR chest negative for any signs of focal pneumonia. On multiple psychiatric medication including buprenorphine, quetiapine, sertraline, temazepam, alprazolam which is concerning for possible polypharmacy. Patient mental status improved in the emergency room but continues to have moments of somnolence. Patient will be admitted to hospital for observation. Have discussed case with Dr. Smith who agrees with the admission. I have discussed case with Dr. Cotto who will adjust patient's medication when she is more awake. Disposition: admission Lab Data : 09/26/21 04:30 09/26/21 04:30 Radiology Impressions Chest X-Ray 09/25/21 17:10 IMPRESSION: Unremarkable portable chest. Head CT 09/25/21 17:10 IMPRESSION: No acute intracranial abnormality. Shoulder X-Ray 09/25/21 20:02 IMPRESSION: No acute findings. Laboratory Results WBC 6.9 10^3/uL (4.0-10.0) 09/25/21 17: RBC 3.78 10^6/uL (4.1-5.3) L 09/25/21 17:25 Hgb 8.9 g/dL (11.5-15.3) L 09/25/21 17:25 Hct 31.4 % (37.0-47.0) L 09/25/21 17:25 MCV 83.1 fl (81-99) 09/25/21 17:25 MCH 23.5 pg (28.0-34.0) L 09/25/21 17:25 MCHC 28.3 g/dL (30.0-36.0) L 09/25/21 17:25 RDW 21.9 % (12.1-15.1) H 09/25/21: Plt Count 519 10^3/cmm (130-400) H 09/25/21: MPV 9.4 fL (7.4-10.4) 09/25/21: Neut % (Auto) 61.2 % 09/25/21: Lymph % (Auto) 28.6 % 09/25/21: [place] % (Auto) 5.8 % 09/25/21: Eos % (Auto) 3.2 % 09/25/21: Baso % (Auto) 0.9 % 09/25/21: Neut # (Auto) 4.21 10^3/uL (1.8-7.7) 09/25/21: Lymph # (Auto) 2.0 10^3/uL (0.8-4.8) 09/25/21: [place] # (Auto) 0.4 10^3/uL (0.2-0.9) 09/25/21: Eos # (Auto) 0.2 10^3/uL (0.0-0.8) 09/25/21: Baso # (Auto) 0.1 10^3/uL (0.0-0.1) 09/25/21: Nucleated RBC % (auto) 0 % 09/25/21: Nucleated RBCs # 0.0 /100WBC 09/25/21: Sodium 137 mmol/L (136-145) 09/25/21: Potassium 3.9 mmol/L (3.5-5.1) 09/25/21: Chloride 103 mmol/L (98-107) 09/25/21: Carbon Dioxide 22 mmol/L (22-29) 09/25/21: Anion Gap 15.9 (5-19) 09/25/21 17:25 BUN 17 mg/dL (6-20) 09/25/21: Creatinine 0.6 mg/dL (0.5-0.9) 09/25/21: GFR Calculation 107.2 mL/min (90-130) 09/25/21 17:25 Glucose 92 mg/dL (65-115) 09/25/21 17:25 Calculated Osmolality 285 mOsm/kg (285-295) 09/25/21 17:25 Calcium 9.2 mg/dL (8.5-10.5) 09/25/21 17:25 Phosphorus 4.4 mg/dL (2.5-4.5) 09/25/21 17: Magnesium 1.9 mg/dL (1.7-2.3) 09/25/21: Total Bilirubin 0.2 mg/dL (0.15-1.2) 09/25/21 17:25 AST 12 U/L (0-32) 09/25/21 17:25 ALT 14 U/L (0-33) 09/25/21 17: Alkaline Phosphatase 107 IU/L (35-105) H 09/25/21 17:25 Troponin T Baseline 23 ng/L (0-10) H 09/25/21 17: Troponin T 120 Minute 25.07 ng/L (0-10) H 09/25/21 19:10 Delta Troponin T 2.07 ABS# (0-10) 09/25/21 19:10 Total Protein 6.1 g/dL (6.6-8.7) L 09/25/21: Albumin 4.0 g/dL (3.5-5.2) 09/25/21: Globulin 2.1 g/dL (1.3-4.6) 09/25/21 17: Lipase 41 U/L (13-60) 09/25/21: Folate 16.6 ng/mL (4.8-37.3) 09/25/21 17: TSH 2.52 uIU/mL (0.27-4.20) 09/25/21: Free T4 0.75 ng/dL (0.82-1.77) L 09/25/21 17: Urine Color Colorless (Yellow) 09/25/21 20:45 Urine Appearance Clear (CLEAR) 09/25/21 20:45 Urine pH 7 (5-7) 09/25/21 20:45 Ur Specific [place] 1.010 (1.005-1.030) 09/25/21 20:45 Urine Protein Neg (Negative) 02/17/22 20:45 Urine Glucose (UA) Norm (Normal) 09/25/21 20:45 Urine Ketones Negative (Negative) 09/25/21 20:45 Urine Blood Neg (Negative) 09/25/21 20:45 Urine Nitrate Negative (Negative) 09/25/21 20:45 Urine Bilirubin Neg (Negative) 09/25/21 20:45 Urine Urobilinogen Neg mg/dL (Negative) 09/25/21 20:45 Ur Leukocyte Esterase Negative (Negative) 09/25/21 20:45 Salicylates < 0.3 mg/dL (3-10) L 09/25/21 17:25 Urine Opiates Screen Negative ng/mL (Negative) 09/25/21 20:45 Acetaminophen < 5.0 ug/mL (10-30) L 09/25/21 17:25 Ur Barbiturates Screen Negative ng/mL (Negative) 09/25/21 20:45 Ur Phencyclidine Scrn Negative ng/mL (Negative) 09/25/21 20:45 Ur Amphetamines Screen Negative ng/mL (Negative) 09/25/21 20:45 U Benzodiazepines Scrn Positive ng/mL (Negative) H 09/25/21 20:45 Urine Cocaine Screen Negative ng/mL (Negative) 09/25/21 20:45 U Marijuana (THC) Screen Negative ng/mL (Negative) 09/25/21 20:45 Ethyl Alcohol < 10 mg/dL (0-10) 09/25/21 19:10 Coronavirus 229E (PCR) Not detected (NOT DETECT) 09/25/21 20:37 SARS-CoV-2 (PCR) Not detected (NOT DETECT) 09/25/21 20:37 Imaging Data Other Imaging: Radiologist's impression: [address] [address] [address] Scan Report Signed Patient: Rohini Gonzalez Unit #: [id number] : 1975 Age/Sex: 46 / F ADM Date: 09/25/21 Loc: ER Room/Bed: Attending Dr: Ordering Provider/Ordering MD: Celeste Andrade MD Date of Service: 09/25/21 Procedure(s): CT head wo con* 11903 Accession Number(s): [id number] Report Number: [id number] PROCEDURE INFORMATION: Exam: CT Head Without Contrast Exam date and time: 09/25/2021 5:10 PM Age: 46 years old Clinical indication: Altered mental status/memory loss; Additional info: AMS TECHNIQUE: Imaging protocol: Computed tomography of the head without contrast. Radiation optimization: All CT scans at this facility use at least one of these dose optimization techniques: automated exposure control; mA and/or kV adjustment per patient size (includes targeted exams where dose is matched to clinical indication); or iterative reconstruction. COMPARISON: No relevant prior studies available. RADIATION DOSE METRICS: Total DLP (mGy-cm): 941.13 FINDINGS: Brain: Normal. No hemorrhage. Unremarkable white matter. No mass effect. Cerebral ventricles: No ventriculomegaly. Paranasal sinuses: Visualized sinuses are unremarkable. No fluid levels. Mastoid air cells: Visualized mastoid air cells are well aerated. Bones/joints: Unremarkable. No acute fracture. Soft tissues: Unremarkable. CT/CT head wo con* [id number] IMPRESSION: No acute intracranial abnormality. ? Dictated By: Shalom Rai MD Signed By: Shalom Rai MD Signed Date/Time: 09/25/21 180 DD/ [address] [address] XRay Report Signed Patient: Rohini Gonzalez Unit #: [id number] : 1975 Age/Sex: 46 / F ADM Date: 09/25/21 Loc: ER Room/Bed: Attending Dr: Ordering Provider/Ordering MD: Celeste Andrade MD Date of Service: 09/25/21 Procedure(s): XR shoulder LT min 2V* 29645 Accession Number(s): [id number] Report Number: [id number] PROCEDURE INFORMATION: Exam: XR Left Shoulder Exam date and time: 09/25/2021 8:02 PM Age: 46 years old Clinical indication: Pain; Shoulder; Left; Additional info: Shoulder pain per TECHNIQUE: Imaging protocol: XR Left shoulder. Views: 2 or more views. COMPARISON: CR XR chest 1V portable [id number] 09/25/2021 5:19 PM FINDINGS: Bones/joints: Normal. Soft tissues: Normal. XR/XR shoulder LT min 2V* [id number] IMPRESSION: No acute findings. ? Dictated By: Shalom Rai MD Signed By: Shalom Rai MD Signed Date/Time: 09/25/212020 DD/ 01 Discharge Plan Discharge Patient Disposition: Admitted As Inpatient Admit Provider: Jeff Christine Condition: Stable Coding Level of Care Code ED Edge Cutting Machine Operator for Chg Fwd Exam Comprehensive
[2021-09-25 18:50] VITALS: BP 109/74; PULSE 93; RESP 18; TEMP 36.6; O2SAT 100
[2021-09-25] MEDS: sodium chloride 0.9% 1,000 ML 999 ML IV (19:05)
--- NOTE | 2021-09-25 19:11 | ECG_ITS ---
[facility] Test Date: 2021-09-25 Pat Name: Rohini Gonzalez Department: Room: 253 Gender: Female Placer Miner: : 1975 Requested By: Celeste Andrade Order Number: [id number] Chuck MD: Emely Dunn M.D. Measurements Intervals [place] Rate: 57 P: 10 VA: 174 QRS: 13 QRSD: 88 T: 2 QT: 453 QTc: 443 Interpretive Statements SINUS BRADYCARDIA LOW QRS VOLTAGE IN PRECORDIAL LEADS [QRS DEFLECTION < 1.0 mV IN CHEST LEADS] Compared to ECG 09/25/2021 18:17:19 Low QRS voltage now present Sinus rhythm no longer present Electronically Signed On 09-26-2021 15:29:42 MANUFACTURING ADVISOR by Emely Dunn M.D. [id number]
[2021-09-25 19:33] LABS: Troponin 5 2HR 25.07 ng/L (0-10)
[2021-09-25 19:38] LABS: Troponin 5 2HR Delta 2.07 ABS# (0-10)
[2021-09-25 20:00] VITALS: BP 112/82; PULSE 100; RESP 16; O2SAT 100
--- NOTE | 2021-09-25 20:02 | XRR_ITS ---
PROCEDURE INFORMATION: Exam: XR Left Shoulder Exam date and time: 09/25/2021 8:02 PM Age: 46 years old Clinical indication: Pain; Shoulder; Left; Additional info: Shoulder pain per TECHNIQUE: Imaging protocol: XR Left shoulder. Views: 2 or more views. COMPARISON: CR XR chest 1V portable [id number] 09/25/2021 5:19 PM FINDINGS: Bones/joints: Normal. Soft tissues: Normal. XR/XR shoulder LT min 2V* [id number] IMPRESSION: No acute findings.
[2021-09-25 20:08] LABS: Alcohol Level < 10 mg/dL (0-10)
[2021-09-25 20:49] LABS: Add Urine Microscopic? NO; Charge for UA Resulting for Rev
[2021-09-25 20:52] LABS: Urine Appearance Clear (CLEAR); Urine Color Colorless (Yellow)
[2021-09-25 20:53] LABS: Bilirubin Urine Neg (Negative); Blood Urine Neg (Negative); Glucose Urine UA Norm (Normal); Ketones Urine Negative (Negative); Leukocyte Esterase Urine Negative (Negative); Nitrate Urine Negative (Negative); Protein Urine Neg (Negative); Urobilinogen Urine Neg (Negative); pH Urine 7 (5-7)
[2021-09-25 21:02] LABS: Amphetamines Screen Urine Negative (Negative); Barbiturates Screen Urine Negative (Negative); Benzodiazepines Screen Urine Positive (Negative); Cocaine Screen Urine Negative (Negative); Opiate Screen Urine Negative (Negative); PCP Screen Urine Negative (Negative); THC Screen Urine Negative (Negative)
[2021-09-25 21:42] LABS: Free T4 Free Thyroxine 0.75 ng/dL (0.82-1.77)
[2021-09-25 22:28] LABS: Adenovirus Not Detected (NOT DETECT); Chlamydia Pneumoniae Not Detected (NOT DETECT); Coronavirus 229E,HKU1,NL63,OC4 Not Detected (NOT DETECT); Human Metapneumovirus Not Detected (NOT DETECT); Human Rhinovirus/Enterovirus Not Detected (NOT DETECT); Influenza A Not Detected (NOT DETECT); Influenza A H1 Not Detected (NOT DETECT); Influenza A H1-2009 Not Detected (NOT DETECT); Influenza A H3 Not Detected (NOT DETECT); Influenza B Not Detected (NOT DETECT); Mycoplasma Pneumoniae Not Detected (NOT DETECT); Parainfluenza Virus Type 1 Not Detected (NOT DETECT); Parainfluenza Virus Type 2 Not Detected (NOT DETECT); Parainfluenza Virus Type 3 Not Detected (NOT DETECT); Parainfluenza Virus Type 4 Not Detected (NOT DETECT); Respiratory Syncytial Virus A Not Detected (NOT DETECT); Respiratory Syncytial Virus B Not Detected (NOT DETECT); SARS-COV-2 Not Detected (NOT DETECT)
--- NOTE | 2021-09-25 22:35 | PM.HP ---
Providers/Chief Complaint Admitting Physician: Jeff Christine MD, hospitalist Primary Care Provider: Gee Simon Chief Complaint: AMS History of Present Illness Rohini Gonzalez is a 46 year old female who presented to the hospital today with confusion. Apparently her significant other found her confused and less responsive than normal so she was brought to the emergency department by EMS. They gave her 2 mg of Narcan in route without significant improvement. Glucose apparently was normal on their arrival. Patient had been somnolent in the emergency department, but gradually having some improvement. As she had not gotten back to normal, there was concern she would need observation. When I interviewed the patient she was more responsive. She was not oriented to place, but now oriented to year, and self. She reported she has had a significant amount of stress lately. She denied any suicidal ideation, or overdose. She is on multiple medications which could have caused significant lethargy and diminished response. She reports her home environment is not good, and she is frequently panicked. She reports she has frequent palpitations. Overall she feels weak. She reports chronic nausea and diminished p.o. intake. Review of Systems General: Reports: 10 or more systems reviewed and unremarkable except in HPI and below Const: Reports: fatigue and malaise; Denies: fever(s) Eyes: Denies: change in vision ENMT: Denies: throat pain Card: Reports: palpitations; Denies: chest pain Resp: Denies: dyspnea GI: Reports: nausea : Denies: flank pain Musc: Denies: neck pain Skin/Breast: Denies: rash Neuro: Denies: headache(s) Psych: Reports: anxiety and depression Endo: Denies: polyuria Charles/Lymph: Denies: easy bruising All/Imm: Denies: urticaria Medications/Allergies Home Medications Medication Instructions Recorded Confirmed Last Taken Type alprazolam 1 mg tablet 1 mg PO QID PRN 01/08/21 09/25/21 01/08/21 08:00 History nepukdr-kxefpbbzdextz-cdnsbxvr 250 2 tab PO PRN 01/08/21 09/25/21 01/08/21 03:00 History mg-250 mg-65 mg tablet (Excedrin Migraine) diphenhydramine HCl 25 mg capsule 50 mg PO PRN 01/08/21 09/25/21 Unknown History (Benadryl) gabapentin 600 mg tablet 600 mg PO BID 01/08/21 09/25/21 01/08/21 08:00 History pantoprazole 40 mg tablet,delayed 40 mg PO QAM 01/08/21 09/25/21 01/08/21 03:00 History release phenolphthalein-docusate sodium 65 2 tab PO PRN 01/08/21 09/25/21 Unknown History mg-100 mg tablet quetiapine 300 mg tablet 600 mg PO BEDTIME 01/08/21 09/25/21 01/07/21 History sertraline 100 mg tablet 100 mg PO BID 01/08/21 09/25/21 01/08/21 08:00 History topiramate 200 mg tablet 200 mg PO BEDTIME 01/08/21 09/25/21 01/08/21 03:00 History zolpidem 10 mg tablet 10 mg PO BEDTIME 01/08/21 09/25/21 01/07/21 History diphenoxylate-atropine 2.5 1 tab PO TID PRN #10 tab 07/30/21 09/25/21 Unknown Rx mg-0.025 mg tablet (Lomotil) tramadol 50 mg tablet 50 mg PO TID PRN #7 tab 07/30/21 09/25/21 Unknown Rx albuterol sulfate 90 mcg/actuation 2 puff INHALATION Q6H PRN 07/31/21 09/25/21 Unknown History aerosol inhaler bupropion HCl 300 mg 24 hr tablet, 300 mg PO DAILY 07/31/21 09/25/21 Unknown History extended release dextroamphetamine-amphetamine 20 20 mg PO DAILY 07/31/21 09/25/21 Unknown History mg tablet famotidine 20 mg tablet 20 mg PO DAILY 07/31/21 09/25/21 Unknown History potassium chloride 20 mEq/15 mL 20 meq PO DAILY 07/31/21 09/25/21 Unknown History oral liquid trazodone 150 mg tablet 150 mg PO BEDTIME 07/31/21 09/25/21 Unknown History temazepam 15 mg capsule 15 mg PO BEDTIME 09/25/21 09/25/21 Unknown History Allergies Allergy/AdvReac Type Severity Reaction Status Date / Time ciprofloxacin [From Cipro] Allergy ALGY-Hives Verified 07/31/21 14:11 ibuprofen Allergy ALGY-Hives Verified 07/31/21 14:11 ketorolac [From Toradol] Allergy ALGY-Hives Verified 07/31/21 14:11 PFSH Acute PFSH: Medical History (Updated 09/25/21 @ 22:58 by Jeff Christine MD) Acute hypokalemia MARLEEN (acute kidney injury) Chronic diarrhea Depression Failure to thrive Gastroenteritis Surgical History (Updated 09/25/21 @ 22:54 by Jeff Christine MD) History of appendectomy History of tonsillectomy History of tubal ligation S/P breast augmentation S/P laparotomy Social History (Updated 09/25/21 @ 22:55 by Jeff Christine MD) Smoking and tobacco status: current every day smoker Alcohol intake: never Vitals/I&O/Wt Last Vital Signs Temp 97.8 F 09/25/21 18:50 Pulse 100 09/25/21 20:00 Resp 16 09/25/21 20:00 BP 112/82 09/25/21 20:00 Pulse Ox 100 09/25/21 20:00 Physical Exam Narrative: Regular rate andThin appearing female, who appears to jump from subject to subject HEENT: Atraumatic normocephalic. Pupils equally round. Oropharynx clear. Neck is supple no lymphadenopathy or thyromegaly Cardiovascular rhythm, no murmur Lungs clear no wheezing or crackles Abdomen is soft nontender positive bowel sounds. No obvious organomegaly exams deferred Extremities no cyanosis clubbing or edema, cap refill brisk. Skin no rash Neuro no focal deficits, mild confusion present. Data : 09/25/21 17:25 09/25/21 17:25 Other Labs: LFTs normal with the exception of alk phos slightly high at 107 I have ordered a magnesium which is pending Troponin XX 3 with repeat of 25 Albumin 2.1 Lipase 41 TSH 2.52 Urinalysis negative Acetaminophen and salicylate levels undetectable. Urine drug screen positive for benzodiazepines Alcohol level less than 10 Covid PCR negative Shoulder x-ray, head CT negative EKG demonstrates sinus rhythm, normal axis, biphasic P wave V1 demonstrating likely left atrial enlargement. A&P Assessment and plan (1) Altered mental status: She is slowly improving but not yet back to baseline. She denies any overdose of medication, suicidal or homicidal ideation. She has significant polypharmacy, and her current diagnosis is acute encephalopathy secondary to polypharmacy At this point medications will be held. Dextroamphetamine should be discontinued Gabapentin dose will be lowered to 300 mg twice daily Psychiatric consultation. Currently she is agreeable to go to the neuropsychiatric unit when she stabilizes if this is needed for her mental health disorder. She is on multiple medications that interact with the serotonin system including bupropion, Benadryl, tramadol, sertraline, trazodone as well as multiple other sedative/benzodiazepine medications. All of these will need to be addressed and likely reduced in some fashion to prevent further episodes of confusion. Continue hydration. Status: Acute (2) Depression: Psychiatric consultation Status: Acute (3) Adult failure to thrive: It appears she may have made some progress regarding this since her last hospital stay. Check magnesium Repeat electrolytes in the morning Thiamine, multivitamin Status: Acute Plan Anemia. Check anemia panel, stool Hemoccult Full code Lovenox for DVT prophylaxis Attestations Medical Necessity Statement*: Will need less than 2 midnight stay for evaluation and treatment of acute encephalopathy secondary to polypharmacy. Coding Level of Care Code Acute Profile Mill Operator Tape Control for Khoa Szymanski Diagnoses Altered mental status R41.82 Depression F32.A Adult failure to thrive R62.7
[2021-09-25 22:56] LABS: Magnesium 1.9 mg/dL (1.7-2.3)
[2021-09-25 23:12] VITALS: BP 120/83; PULSE 83; RESP 16; TEMP 37.1; O2SAT 100
[2021-09-25 23:36] VITALS: BMI 15.0
[2021-09-25 23:58] LABS: Ferritin 12 ng/mL (15-150); Iron 15 ug/dL (37-145); Percent Saturation 4.3 % (20-50); Total Iron Binding Capacity 345 mcg/dl; Unsaturated Iron Binding 330 ug/dL (112-347)
[2021-09-26] VITALS: BP 121/76; PULSE 82; RESP 16; TEMP 36.6; O2SAT 100
--- NOTE | 2021-09-26 00:09 | PC.NURSE ---
0005 Pt had several medicine bottles in purse. List provided in belongings log. Narcotic bottles were empty. Witnessed by Sarah Beth Howard RN. All meds placed in pyxus.
[2021-09-26 00:14] LABS: Vitamin B12 435 pg/mL (232-1245)
[2021-09-26 00:15] LABS: Folate Level 16.6 ng/mL (4.8-37.3)
[2021-09-26] MEDS: enoxaparin 40 mg/0.4 mL Syringe SUBCUT (00:41)
[2021-09-26] MEDS: acetaminophen 325 mg Tablet 650 MG PO (00:41)
[2021-09-26] MEDS: dextrose 5%-sod chloride 0.9% 1,000 ML 75 ML IV (00:56)
--- NOTE | 2021-09-26 01:05 | PC.NURSE ---
0100 Have noted pt to be looking through her purse at several different times since arrival to unit. Advised her that I put her home medications in pyxus until discharge. Pt upset stating that she needs her xanax, wellbutrin, nicotine patches, setraline . Explained that her condition on arrival could have been related to too much medication. We are holding sedating meds at this time. Voices understanding. Pt rambles about her mouth being dry and then switches to her house needing repairs in the same sentence. Confused on time and situation.
[2021-09-26 04:00] VITALS: BP 93/59; PULSE 88; RESP 16; TEMP 36.9; O2SAT 100
--- NOTE | 2021-09-26 04:49 | PC.NURSE ---
0445 Lab at bedside. Pt reports pain all over and needs her pain meds. Explained to her that they are not ordered at this time.
[2021-09-26 05:29] LABS: Basophils # 0.1 10^3/uL (0.0-0.1); Basophils % 0.9 %; Eosinophils # 0.1 10^3/uL (0.0-0.8); Eosinophils % 1.9 %; Hematocrit 29.8 % (37.0-47.0); Hemoglobin 8.5 g/dL (11.5-15.3); Lymphocytes # 1.4 10^3/uL (0.8-4.8); Lymphocytes % 25.6 %; Mean Corpuscular HGB Conc 28.5 g/dL (30.0-36.0); Mean Corpuscular Hemoglobin 23.8 pg (28.0-34.0); Mean Corpuscular Volume 83.5 fl (81-99); Mean Platelet Volume 9.6 fL (7.4-10.4); Monocytes # 0.3 10^3/uL (0.2-0.9); Monocytes % 5.6 %; Neutrophils # 3.55 10^3/uL (1.8-7.7); Neutrophils % 65.8 %; Nucleated Red Blood Cells % 0 %; Platelet Count 524 10^3/cmm (130-400); Red Blood Count 3.57 10^6/uL (4.1-5.3); Red Cell Distribution Width 22.1 % (12.1-15.1); White Blood Count 5.4 10^3/uL (4.0-10.0)
[2021-09-26] MEDS: pantoprazole DR 40 mg Tablet PO (05:38)
[2021-09-26 05:59] LABS: Alanine Aminotransferase 13 U/L (0-33); Alkaline Phosphatase 100 IU/L (35-105); Aspartate Amino Transferase 14 U/L (0-32); Blood Urea Nitrogen 14 mg/dL (6-20); Calcium 9.1 mg/dL (8.5-10.5); Carbon Dioxide 21 mmol/L (22-29); Chloride 107 mmol/L (98-107); Globulin 2.2 g/dL (1.3-4.6); Glomerular Filtration Rate 107.2 mL/min (90-130); Glucose 98 mg/dL (65-115); Osmolality Calculated 288 mOsm/kg (285-295); Sodium 139 mmol/L (136-145); Total Bilirubin 0.2 mg/dL (0.15-1.2); Total Protein 6.2 g/dL (6.6-8.7)
[2021-09-26 07:37] VITALS: BP 100/64; PULSE 100; RESP 18; TEMP 37; O2SAT 100
[2021-09-26] MEDS: nicotine 14 mg Patch 1 PATCH TRANSDERMA (08:26)
[2021-09-26] MEDS: thiamine 100 mg Tablet PO (08:28)
[2021-09-26] MEDS: multivitamin therapeutic Tablet 1 TAB PO (08:28)
[2021-09-26] MEDS: sertraline 100 mg Tablet PO (08:28)
--- NOTE | 2021-09-26 09:09 | PC.CHAP ---
Pastoral Care Encounter/Spiritual Assessment Type of Contact [] Declined aviation tactical readiness officer visit [] Patient/Family/Request visit [] Outpatient visit [] Follow-up visit [] Physician referral [] Code/Alert [x] Routine visit [] Staff referral [] Actively dying [] Patient sleeping [] Family support [] [] Out of room [] Palliative care [] [] Receiving care in room [] Pre-surgical visit [] Trauma [] Long length of stay [] ICU visit [] Other: Relational/Emotional Strength [x] Patient feels connected with others/family/visitors/staff [] Distress [] Loneliness/isolation [] Abandonment Spirituality of Patient [x] Person of Samantha [] Attends Latter-Day of their Samantha [x] Believes in Prayer [] Reads Bible or Jehovah'S Witness materials [] There are Spiritual issues to be addressed Entertainment Director Interventions [x] Prayer [x] Active listening [] Non-anxious presence [] Spiritual/emotional support [] Crisis/trauma care [x] Spiritual counseling [] Bereavement support [] Provided bereavement packet [] Provided Bible/devotional materials [] Provided toy/stuffed animal, coloring book to patient or family member [] Provided Communion [] Anointing/[place] [] Salvation x] Completed spiritual assessment [] Other: Impact on Illness or Injury [] Angry [] Fearful [] Anxious [] Often cries [] Exhaustion [] Unable to work [] Unable to attend anabaptist [] Unable to walk/stand [] Unable to read [] Unable to drive [] Unable to eat/drink [] Unable to sleep [] Unable to be with family [] Patient intubated [] Other: Summary Time spent with patient 10 min
[2021-09-26 09:15] VITALS: PULSE 109; O2SAT 98
--- NOTE | 2021-09-26 10:36 | PC.NURSE ---
PT WANTS TO LEAVE AMA. PTS NURSE DISCUSSED THE IMPORTANCE OF HER STAYING HERE IN THE HOSPITAL. THIS NURSE DISCUSSED THE IMPORTANCE OF HER STAYING IN THE HOSPITAL WELL. PT WAS WILLING TO STAY IF THE PHYSICIAN WOULD START HER HOME MEDICATIONS BACK WHICH INCLUDED A VARIETY OF PAIN MEDICATIONS, XANAX, AND WELLBUTRIN, PER PT. THE PHYSICIAN WAS NOTIFIED BUT THE PHYSICIAN SAID TO LET THE PT LEAVE AMA. PT CALLED HER AND HE SAID HE WOULD COME GET HER.
--- NOTE | 2021-09-26 10:43 | PC.NURSE ---
During morning med pass and assessment, pt c/o home med list not being started, listed several medications like her xanax, hydrocodone, wellbutrin, and demanded a nicotine patch. pt was very anxious and emotionally labile, ranging from apologetic to tearful and had visible tremors with her hands. this nurse contacted the physician Dr Olivares via secure messaging system, informed him of pt requests and concerns. put in an order for a nicotine patch which this nurse retrieved and applied to pt along with her other morning medications. when the pt did not hear that the ones she had wanted were part of the ones she was receiving she stated that she felt horrible, can't handle this, I'm going home. Do whatever has to be done to get AMA paperwork going This nurse spoke with the pt about concerns for her leaving, advised that the safest place was here in hospital so that she could be treated but informed her that if her wish was to leave it was her right. this nurse notified Dr, spoke with her as well, but pt persisted in her decision to leave AMA. paperwork was signed and witnessed by this nurse. spouse of pt came and picked pt up. IV was removed tip intact and home meds were removed from pyxis and returned to pt along with jewelry.
[2021-09-26 10:53] VITALS: PULSE 109; O2SAT 98
--- NOTE | 2021-10-01 17:28 | P.EN_ITS ---
Event Note Event Note: Rohini Gonzalez is a 46 year old female who presented to the hospital with confusion she was admitted for the management for AMS likely 2/2 polypharmacy.When I saw the patient in the morning she was AO*3 at her baseline mentation,she wanted to go home, I tried to explain her that it will be prudent for her to stay today so that we can monitor her and discharge her likely later today. But she decided to signout AMA.We explained her the risk involved with it. She expressed understanding.Patient signed the AMA Paper and left the hospital with her significant other. Event Notes Attestations Time Spent in Patient Care: 16 - 35 minutes (>than 50% of time spent in counselling and/or direct pt care on unit) .
== END 2021-09-26 10:54 | disposition left against medical advice (07) ==
LOC: ER 18:34 → MEDSURG 22:55
PROVIDERS: Admitting Provider Internal Medicine; Emergency Provider Emergency Medicine; PCP Family Medicine; Visit Provider Internal Medicine
DX: R41.82 Altered mental status, unspecified (principal); F32.A Depression, unspecified; R62.7 Adult failure to thrive; Z79.82 Long term (current) use of aspirin; F17.210 Nicotine dependence, cigarettes, uncomplicated; D64.9 Anemia, unspecified; M25.512 Pain in left shoulder
CPT/HCPCS: 36415; 70450; 71045; 73030; 80053; 80306; 80307; 81003; 82607; 82728; 82746; 83540; 83550; 83690; 83735; 84100; 84439; 84443; 84484; 85025; 87635; 93005; 96361; 96372; 96374; 96375; 96376; 99285; G0378; J1650; J3411; J3490; J7030

== ENCOUNTER 2022-09-21 13:32 | Emergency (ER) | payer MEDICARE, MEDICAID, SELFPAY ==
[2022-09-21] VITALS (71 sets, daily range): BP systolic 110–137; BP diastolic 73–94; PULSE 87–117; RESP 13–38; TEMP 36.9; O2SAT 96–100; BMI 16.4
--- NOTE | 2022-09-21 13:47 | W.ED.ABDPA2 ---
Documented by User: DANIEL Hadley 09/23/22 07:17 HPI - Abdominal Pain General: Chief Complaint: Abdominal Pain Stated Complaint: ABD PAIN Time Seen by Provider: 09/21/22 13:44 Source: patient and EMS Mode of arrival: EMS Limitations: no limitations History of Present Illness: Patient is a 47-year-old female presents to ED today via EMS for evaluation of severe abdominal pain. Patient tells me over the course of the week she has had intermittent episodes of nausea and vomiting as well as some intermittent diarrhea. She states yesterday evening she began developing excruciating lower abdominal pain. Patient states she has a history of a bowel perforation requiring emergent surgery and bowel resection. She states she has had a total of 4 previous bowel resections. She has had 5 previous sections. Patient is not running fevers. She is not having any blood in her emesis or bowels. She has no urinary complaints. MD elicited complaint: abdominal pain Onset (ago): day(s) Pain Consistency: constant Location: Diffuse Severity: severe Pain scale (0-10): 10 Migration to: no migration Exacerbating factors: nothing Relieving factors: nothing Associated Symptoms: Reports diarrhea, nausea and vomiting; Denies chills, dysuria, fever(s), heartburn, hematochezia, hematemesis, melena and syncope Related Data: Patient : No Review of Systems Const: Denies: fever(s), chills, body aches, fatigue or malaise Eyes: Denies: change in vision or blurry vision Card: Denies: chest pain, palpitations, irregular heart rhythm, lightheadedness, syncope or dyspnea on exertion Resp: Denies: dyspnea, productive cough or pain on inspiration GI: Reports: abdominal pain, nausea, vomiting and diarrhea; Denies: hematemesis, heartburn, hematochezia or melena : Denies: flank pain, difficulty voiding, dysuria, urinary frequency, urinary urgency or urinary hesitancy Musc: Denies: neck pain, back pain or joint pain Skin/Breast: Denies: rash Neuro: Denies: headache(s), numbness in extremities, weakness in extremities or sensory changes PFS ED PFSH: Medical History Acute hypokalemia MARLEEN (acute kidney injury) Chronic diarrhea Depression Failure to thrive Gastroenteritis Surgical History History of appendectomy History of tonsillectomy History of tubal ligation S/P breast augmentation S/P laparotomy Social History Smoking and tobacco status: current every day smoker Alcohol intake: never Physical Exam Const: COMMON NORMALS: patient oriented x3, no limitations and alert GENERAL APPEARANCE: cooperative and in distress (in signficant discomfort secondary to pain) ORIENTATION/CONSCIOUSNESS: Yes awake, Yes oriented to person, Yes oriented to place and Yes oriented to time HENMT: COMMON NORMALS: normocephalic and atraumatic HEAD & SCALP: normal to inspection, normocephalic and atraumatic Resp: COMMON NORMALS: normal respiratory effort and clear to auscultation bilaterally AUSCULTATION: clear to auscultation bilaterally Cardio: COMMON NORMALS: regular rate and regular rhythm RATE: regular rate RHYTHM: regular rhythm GI: INSPECTION: Yes scar (large vertical midline abdominal scar) AUSCULTATION: Yes Hypoactive bowel sounds present PALPATION: Yes Tenderness to palpation present (GI) (diffusely ), Yes Guarding due to palpation present (GI) and Yes Rigid due to palpation : COMMON NORMALS: Yes no CVA tenderness BLADDER/KIDNEY EXAM: Yes no CVA tenderness Back/Pelvis: COMMON NORMALS: no CVA tenderness, thoracic and lumbar spine normal to inspection, no thoracic nor lumbar tenderness and thoraco-lumbar ROM normal Extremity: COMMON NORMALS: normal to inspection GENERAL: Yes normal exam except as noted Neuro: MIGUEL COMA SCALE: document GCS findings Miguel coma scale eye opening: Spontaneous Miguel coma scale verbal response: Orientated [place] coma scale motor response: Obey commands Miguel coma scale total score: 15 COMMON NORMALS: patient oriented x3, moves all extremities, no focal motor deficits and no sensory deficits noted SENSORIUM/ORIENTATION: Yes alert, Yes oriented to person, Yes oriented to place and Yes oriented to time Skin: COMMON NORMALS: no rashes or lesions noted GENERAL SKIN EXAM: no rashes or lesions noted Course Vital Signs: Vital signs: Vital Signs Temperature 98.1 F 09/22/22 09:59 Pulse Rate 87 09/22/22 09:59 Respiratory Rate 78 H 09/22/22 09:59 Blood Pressure 124/71 09/22/22 09:59 Pulse Oximetry 98 09/22/22 09:59 Oxygen Delivery Me thod 09/21/22 18:47 MDM - Abdominal Pain Medical Decision Making Patient here with severe abdominal pain out of proportion to exam. Blood work shows a white count of 28.9. Lactate surprisingly is normal at 1.7. 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 She has got a markedly abnormal small bowel and there is concern for ischemic bowel. We have contacted [facility] in [place] both of which cannot accept patient at this time. She has been started on Heparin and Zosyn. Care transferred to Dr. Arrington as my shift is ending. Lab Data 09/21/22 15:09 09/21/22 15:09 Labs/Radiology: Radiology Impressions Abdomen/Pelvis CT 09/21/22 13:53 IMPRESSION: 1. Markedly abnormal small bowel loops. Numerous small bowel wall thickening with hyperemia and narrowing of the lumen in the central abdomen. Adjacent prior small bowel clips are identified. There are a few small foci of air which may be pneumatosis or ulcerations extending into the small bowel mucosa. 2. Fluid-filled colon with mild hyperemia. No obstruction. There is mild wall thickening of the colon towards the rectum. 3. 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 The abnormal appearance of the spleen may be related to ischemia or embolic disease from thrombus. Splenic changes may also be due to early phase of contrast injection but ischemic changes need to be considered due to the soft tissue partially obstructing the celiac axis. 4. No free fluid and no adenopathy. Notified DANIEL Hadley at 09/21/2022 3:51 PM. Laboratory Results WBC 20.7 10^3/uL (4.0-10.0) H 09/22/22 06:44 Corrected WBC Cancelled 09/21/22 14:20 RBC 3.87 10^6/uL (4.1-5.3) L 09/22/22 06:44 Hgb 7.6 g/dL (11.5-15.3) L 09/22/22 06:44 Hct 28.2 % (37.0-47.0) L 09/22/22 06:44 MCV 72.9 fl (81-99) L 09/22/22 06:44 MCH 19.6 pg (28.0-34.0) L 09/22/22 06:44 MCHC 27.0 g/dL (30.0-36.0) L 09/22/22 06:44 RDW 22.2 % (12.1-15.1) H 09/22/22 06:44 Plt Count 648 10^3/cmm (130-400) H 09/22/22 06:44 MPV 8.5 fL (7.4-10.4) 09/22/22 06:44 Gran % Cancelled 09/21/22 14:20 Neut % (Auto) 79.8 % 09/22/22 06:44 Lymph % (Auto) 10.2 % 09/22/22 06:44 Wells % (Auto) 8.7 % 09/22/22 06:44 Eos % (Auto) 0.2 % 09/22/22 06:44 Baso % (Auto) 0.4 % 09/22/22 06:44 Neut # (Auto) 16.56 10^3/uL (1.8-7.7) H 09/22/22 06:44 Lymph # (Auto) 2.1 10^3/uL (0.8-4.8) 09/22/22 06:44 Wells # (Auto) 1.8 10^3/uL (0.2-0.9) H 09/22/22 06:44 Eos # (Auto) 0.0 10^3/uL (0.0-0.8) 09/22/22 06:44 Baso # (Auto) 0.1 10^3/uL (0.0-0.1) 09/22/22 06:44 Absolute Gran (auto) Cancelled 09/21/22 14:20 Nucleated RBC % (auto) 0.1 % 09/22/22 06:44 Nucleated RBCs # 0.0 /100WBC 09/22/22 06:44 PT 13.60 SECONDS (12.1-14.9) 09/22/22 02:50 INR 1.01 (0.8-1.2) 09/22/22 02:50 APTT 39.8 SECONDS (23.9-36.7) H 09/22/22 02:50 Sodium 141 mmol/L (136-145) 09/22/22 06:44 Potassium 3.5 mmol/L (3.5-5.1) 09/22/22 06:44 Chloride 110 mmol/L (98-107) H 09/22/22 06:44 Carbon Dioxide 20 mmol/L (22-29) L 09/22/22 06:44 Anion Gap 14.5 (5-19) 09/22/22 06:44 BUN 8 mg/dL (6-20) 09/22/22 06:44 Creatinine 0.5 mg/dL (0.5-0.9) 09/22/22 06:44 GFR Calculation 131.7 mL/min (90-130) H 09/22/22 06:44 Glucose 136 mg/dL (65-115) H 09/22/22 06:44 Calculated Osmolality 292 mOsm/kg (285-295) 09/22/22 06:44 Lactic Acid 0.9 mmol/L (0.5-2.2) 09/22/22 06:44 Lactate 1.6 mmol/L (0.5-2.2) 09/22/22 04:27 Calcium 7.7 mg/dL (8.5-10.5) L 09/22/22 06:44 Total Bilirubin 0.2 mg/dL (0.15-1.2) 09/22/22 06:44 AST 13 U/L (0-32) 09/22/22 06:44 ALT < 5 U/L (0-33) 09/22/22 06:44 Alkaline Phosphatase 137 U/L (35-105) H 09/22/22 06:44 Total Protein 5.4 g/dL (6.6-8.7) L D 09/22/22 06:44 Albumin 3.0 g/dL (3.5-5.2) L 09/22/22 06:44 Globulin 2.4 g/dL (1.3-4.6) 09/22/22 06:44 Lipase 22 U/L (13-60) 09/21/22 15:09 HCG, Qual Negative (Negative) 09/21/22 14:20 Urine Color Light yellow (Yellow) 09/21/22 14:56 Urine Appearance Clear (CLEAR) 09/21/22 14:56 Urine pH 5 (5-7) 09/21/22 14:56 Ur Specific [place] 1.020 (1.005-1.030) 09/21/22 14:56 Urine Protein Neg (Negative) 09/21/22 14:56 Urine Glucose (UA) Norm (Normal) 09/21/22 14:56 Urine Ketones Negative (Negative) 09/21/22 14:56 Urine Blood Neg (Negative) 09/21/22 14:56 Urine Nitrate Negative (Negative) 09/21/22 14:56 Urine Bilirubin Neg (Negative) 09/21/22 14:56 Urine Urobilinogen Norm mg/dL (Negative) 09/21/22 14:56 Ur Leukocyte Esterase Negative (Negative) 09/21/22 14:56 Blood Type O Positive 09/22/22 08:07 Rho(D) Type Positive 09/22/22 08:07 Antibody Screen Negative 09/22/22 08:07 Crossmatch See Detail 09/22/22 08:07 Discharge Plan Discharge Patient Disposition: Xfer Short-Term Hosp Clinical Impression: Acute ischemia of small intestine, Abdominal aorta thrombosis Abdominal pain Qualifiers: Abdominal location: left upper quadrant Qualified Code(s): R10.12 - Left upper quadrant pain Leukocytosis Qualifiers: Leukocytosis type: unspecified Qualified Code(s): D72.829 - Elevated white blood cell count, unspecified Condition: Stable Referrals: Gee Simon [Primary Care Provider] - Patient Instructions: Abdominal Pain (ED) Coding Level of Care Code 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 Fwd Documented by User: Angelo Arrington MD 09/21/22 21:18 HPI - Abdominal Pain General: Chief Complaint: Abdominal Pain Stated Complaint: ABD PAIN Time Seen by Provider: 09/21/22 13:44 Review of Systems Psych: Reports: anxiety PFSH ED PFSH: Medical History Acute hypokalemia MARLEEN (acute kidney injury) Chronic diarrhea Depression Failure to thrive Gastroenteritis Surgical History History of appendectomy History of tonsillectomy History of tubal ligation S/P breast augmentation S/P laparotomy Social History Smoking and tobacco status: current every day smoker Alcohol intake: never Physical Exam Neuro: MIGUEL COMA SCALE: document GCS findings Miguel coma scale total score: 15 Course Vital Signs: Vital signs: Vital Signs Temperature 98.1 F 09/22/22 09:59 Pulse Rate 87 09/22/22 09:59 Respiratory Rate 78 H 09/22/22 09:59 Blood Pressure 124/71 09/22/22 09:59 Pulse Oximetry 98 09/22/22 09:59 Oxygen Delivery Me thod 09/21/22 18:47 MDM - Abdominal Pain Medical Decision Making Patient here with severe abdominal pain out of proportion to exam. Blood work shows a white count of 28.9. Lactate surprisingly is normal at 1.7. 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 She has got a markedly abnormal small bowel and there is concern for ischemic bowel. We have contacted [facility] in [place] both of which cannot accept patient at this time. She has been started on Heparin and Zosyn. Care transferred to Dr. Arrington as my shift is ending. 1715: Assumed care from DANIEL Hadley. Upon review of CT of the abdomen pelvis CT report patient either has ischemic or infectious enteritis of the small bowel. Mild hyperemia of the fluid-filled colon also. No obstruction. 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 May have ischemia to the spleen from this thrombus or embolic disease. No free fluid or adenopathy in the abdomen. Her white count is 29,000 with left shift. We will start patient on IV Zosyn. We have attempted to transfer the patient to tertiary care center. However, [facility], [facility], and [facility] are all full and not accepting transfers. Did discuss with the transfer center with [facility]. They state they are also full but will try to find a bed for this patient. They will call back with possible bed availability. 1924: Discussed with general surgeon at [facility] with Dr. Torres. He did not accept the patient and recommended patient be referred to [facility] to general surgeon there due to closer proximity. 2021: Discussed case with Dr. Pham of vascular surgeon at [facility]. He excepted the patient in transfer there. He states patient will need to go to stepdown unit or ICU. I went discussed the case with the patient and gave her an update of what was going on. She had no IV fluids or IV heparin hanging. I checked the orders and heparin drip had not been ordered by physician legal administrative assistant as we had discussed. Patient did receive IV heparin bolus. Patient also received Zosyn. Ordered second dose of IV Zosyn at 2330. Heparin drip has been ordered as well. Patient has been accepted to [facility]. Patient may have to be flown by air ambulance due to no ground ambulance is available at this time. Lab Data 09/21/22 15:09 09/21/22 15:09 Labs/Radiology: Radiology Impressions Abdomen/Pelvis CT 09/21/22 13:53 IMPRESSION: 1. Markedly abnormal small bowel loops. Numerous small bowel wall thickening with hyperemia and narrowing of the lumen in the central abdomen. Adjacent prior small bowel clips are identified. There are a few small foci of air which may be pneumatosis or ulcerations extending into the small bowel mucosa. 2. Fluid-filled colon with mild hyperemia. No obstruction. There is mild wall thickening of the colon towards the rectum. 3. 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 The abnormal appearance of the spleen may be related to ischemia or embolic disease from thrombus. Splenic changes may also be due to early phase of contrast injection but ischemic changes need to be considered due to the soft tissue partially obstructing the celiac axis. 4. No free fluid and no adenopathy. Notified DANIEL Hadley at 09/21/2022 3:51 PM. Laboratory Results WBC 20.7 10^3/uL (4.0-10.0) H 09/22/22 06:44 Corrected WBC Cancelled 09/21/22 14:20 RBC 3.87 10^6/uL (4.1-5.3) L 09/22/22 06:44 Hgb 7.6 g/dL (11.5-15.3) L 09/22/22 06:44 Hct 28.2 % (37.0-47.0) L 09/22/22 06:44 MCV 72.9 fl (81-99) L 09/22/22 06:44 MCH 19.6 pg (28.0-34.0) L 09/22/22 06:44 MCHC 27.0 g/dL (30.0-36.0) L 09/22/22 06:44 RDW 22.2 % (12.1-15.1) H 09/22/22 06:44 Plt Count 648 10^3/cmm (130-400) H 09/22/22 06:44 MPV 8.5 fL (7.4-10.4) 09/22/22 06:44 Gran % Cancelled 09/21/22 14:20 Neut % (Auto) 79.8 % 09/22/22 06:44 Lymph % (Auto) 10.2 % 09/22/22 06:44 Wells % (Auto) 8.7 % 09/22/22 06:44 Eos % (Auto) 0.2 % 09/22/22 06:44 Baso % (Auto) 0.4 % 09/22/22 06:44 Neut # (Auto) 16.56 10^3/uL (1.8-7.7) H 09/22/22 06:44 Lymph # (Auto) 2.1 10^3/uL (0.8-4.8) 09/22/22 06:44 Wells # (Auto) 1.8 10^3/uL (0.2-0.9) H 09/22/22 06:44 Eos # (Auto) 0.0 10^3/uL (0.0-0.8) 09/22/22 06:44 Baso # (Auto) 0.1 10^3/uL (0.0-0.1) 09/22/22 06:44 Absolute Gran (auto) Cancelled 09/21/22 14:20 Nucleated RBC % (auto) 0.1 % 09/22/22 06:44 Nucleated RBCs # 0.0 /100WBC 09/22/22 06:44 PT 13.60 SECONDS (12.1-14.9) 09/22/22 02:50 INR 1.01 (0.8-1.2) 09/22/22 02:50 APTT 39.8 SECONDS (23.9-36.7) H 09/22/22 02:50 Sodium 141 mmol/L (136-145) 09/22/22 06:44 Potassium 3.5 mmol/L (3.5-5.1) 09/22/22 06:44 Chloride 110 mmol/L (98-107) H 09/22/22 06:44 Carbon Dioxide 20 mmol/L (22-29) L 09/22/22 06:44 Anion Gap 14.5 (5-19) 09/22/22 06:44 BUN 8 mg/dL (6-20) 09/22/22 06:44 Creatinine 0.5 mg/dL (0.5-0.9) 09/22/22 06:44 GFR Calculation 131.7 mL/min (90-130) H 09/22/22 06:44 Glucose 136 mg/dL (65-115) H 09/22/22 06:44 Calculated Osmolality 292 mOsm/kg (285-295) 09/22/22 06:44 Lactic Acid 0.9 mmol/L (0.5-2.2) 09/22/22 06:44 Lactate 1.6 mmol/L (0.5-2.2) 09/22/22 04:27 Calcium 7.7 mg/dL (8.5-10.5) L 09/22/22 06:44 Total Bilirubin 0.2 mg/dL (0.15-1.2) 09/22/22 06:44 AST 13 U/L (0-32) 09/22/22 06:44 ALT < 5 U/L (0-33) 09/22/22 06:44 Alkaline Phosphatase 137 U/L (35-105) H 09/22/22 06:44 Total Protein 5.4 g/dL (6.6-8.7) L D 09/22/22 06:44 Albumin 3.0 g/dL (3.5-5.2) L 09/22/22 06:44 Globulin 2.4 g/dL (1.3-4.6) 09/22/22 06:44 Lipase 22 U/L (13-60) 09/21/22 15:09 HCG, Qual Negative (Negative) 09/21/22 14:20 Urine Color Light yellow (Yellow) 09/21/22 14:56 Urine Appearance Clear (CLEAR) 09/21/22 14:56 Urine pH 5 (5-7) 09/21/22 14:56 Ur Specific [place] 1.020 (1.005-1.030) 09/21/22 14:56 Urine Protein Neg (Negative) 09/21/22 14:56 Urine Glucose (UA) Norm (Normal) 09/21/22 14:56 Urine Ketones Negative (Negative) 09/21/22 14:56 Urine Blood Neg (Negative) 09/21/22 14:56 Urine Nitrate Negative (Negative) 09/21/22 14:56 Urine Bilirubin Neg (Negative) 09/21/22 14:56 Urine Urobilinogen Norm mg/dL (Negative) 09/21/22 14:56 Ur Leukocyte Esterase Negative (Negative) 09/21/22 14:56 Blood Type O Positive 09/22/22 08:07 Rho(D) Type Positive 09/22/22 08:07 Antibody Screen Negative 09/22/22 08:07 Crossmatch See Detail 09/22/22 08:[address] Abd/Pel: Radiologist's impression: Ordering Provider/Ordering MD: Ruby Tan Date of Service: 09/21/22 Procedure(s): CT abdomen pelvis w con* [id number] Accession Number(s): [id number] Report Number: [id number] WS: [id number] CT ABDOMEN AND PELVIS WITH CONTRAST HISTORY: abdominal pain, N/V TECHNIQUE: Imaging performed of the abdomen and pelvis with IV contrast.? Single phase imaging of the abdomen. Coronal and sagittal reformats are submitted.? All CT scans at [facility] use at least one of these dose optimization techniques: automated exposure control; mA and/or kV adjustment per patient size (includes targeted exams where dose is matched to clinical indication); or iterative reconstruction. IV CONTRAST: Omnipaque 350; 95 mL IV. Oral contrast: No DLP: 320.37 mGy.cm COMPARISON: 07/31/2021 Lower thorax: Lung bases are clear. Heart is normal size. No hiatal hernia. Liver/biliary system: Mildly prominent liver. No mass identified. No bile duct dilatation. Portal vein is normally enhancing. Superior mesenteric vein is negative. Gallbladder: Normal. No gallstones or wall thickening. No pericholecystic fluid.? Pancreas: Normal size pancreas and pancreatic duct. No adjacent inflammation. Spleen: Abnormal appearance to the spleen. There is mixed enhancement and attenuation. No adjacent edema. Adrenal glands: Normal. Right kidney: Normal size kidney with several cortical hypodensities which are too small to characterize. Left kidney: Normal size with several hypodensities which are too small to characterize. Aorta: There is a large soft plaque in the aorta near the origin of the celiac axis. Plaque measures 1.4 cm and may be partially obstructing the celiac axis. This may be resulting in ischemic changes within the spleen. The entire splenic artery is not traceable. The proximal SMA is normal. No filling defects or thrombus. Lymphadenopathy: None. Free fluid: None. GI tract: Stomach is moderately well distended with fluid. There is mild thickening of the stomach antrum which may be due to partial distention. Several abnormal small bowel loops are identified. There is marked wall thickening. Confluent small bowel with wall thickening and enhancement in the central abdomen. There are a few small foci of air within the central small bowel which can be seen with long-standing chronic obstruction. There are a few small foci of air suggestive of pneumatosis. No free air. There are surgical clips in the central small bowel which are surrounded by enhancement and enteritis. Fluid-filled loops of colon. There is mild hyperemia of the wall. There is mild circumferential thickening and enhancement involving the distal colon. Abdominal wall: Unremarkable abdominal wall. No hernia. Pelvis: No free fluid or adenopathy. Millimeter distended urinary bladder. Uterus is present and anteverted. Bones: Unremarkable. CT/CT abdomen pelvis w con* [id number] IMPRESSION: ? 1.? Markedly abnormal small bowel loops. Numerous small bowel wall thickening with hyperemia and narrowing of the lumen in the central abdomen. Adjacent prior small bowel clips are identified. There are a few small foci of air which may be pneumatosis or ulcerations extending into the small bowel mucosa. 2.? Fluid-filled colon with mild hyperemia. No obstruction. There is mild wall thickening of the colon towards the rectum. 3.? 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 The abnormal appearance of the spleen may be related to ischemia or embolic disease from thrombus. Splenic changes may also be due to early phase of contrast injection but ischemic changes need to be considered due to the soft tissue partially obstructing the celiac axis. 4.? No free fluid and no adenopathy. ? ? Notified DANIEL Hadley at 09/21/2022 3:51 PM. ? Dictated By: Carline Yoder DO Signed By: Carline Yoder DO Signed Date/Time: 09/21/22 7679 Discharge Plan Discharge Patient Disposition: Xfer Short-Term Hosp Clinical Impression: Acute ischemia of small intestine, Abdominal aorta thrombosis Abdominal pain Qualifiers: Abdominal location: left upper quadrant Qualified Code(s): R10.12 - Left upper quadrant pain Leukocytosis Qualifiers: Leukocytosis type: unspecified Qualified Code(s): D72.829 - Elevated white blood cell count, unspecified Condition: Stable Referrals: Gee Simon [Primary Care Provider] - Patient Instructions: Abdominal Pain (ED) Coding Level of Care Code 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 Fwd Documented by User: Valeria Reyes MD 09/22/22 05:11 HPI - Abdominal Pain General: Chief Complaint: Abdominal Pain Stated Complaint: ABD PAIN Time Seen by Provider: 09/21/22 13:44 PFS ED PFSH: Medical History Acute hypokalemia MARLEEN (acute kidney injury) Chronic diarrhea Depression Failure to thrive Gastroenteritis Surgical History History of appendectomy History of tonsillectomy History of tubal ligation S/P breast augmentation S/P laparotomy Social History Smoking and tobacco status: current every day smoker Alcohol intake: never Physical Exam Neuro: MIGUEL COMA SCALE: document GCS findings [place] coma scale total score: 15 Course Vital Signs: Vital signs: Vital Signs Temperature 98.1 F 09/22/22 09:59 Pulse Rate 87 09/22/22 09:59 Respiratory Rate 78 H 09/22/22 09:59 Blood Pressure 124/71 09/22/22 09:59 Pulse Oximetry 98 09/22/22 09:59 Oxygen Delivery Me thod 09/21/22 18:47 MDM - Abdominal Pain Lab Data 09/21/22 15:09 09/21/22 15:09 Labs/Radiology: Radiology Impressions Abdomen/Pelvis CT 09/21/22 13:53 IMPRESSION: 1. Markedly abnormal small bowel loops. Numerous small bowel wall thickening with hyperemia and narrowing of the lumen in the central abdomen. Adjacent prior small bowel clips are identified. There are a few small foci of air which may be pneumatosis or ulcerations extending into the small bowel mucosa. 2. Fluid-filled colon with mild hyperemia. No obstruction. There is mild wall thickening of the colon towards the rectum. 3. 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 The abnormal appearance of the spleen may be related to ischemia or embolic disease from thrombus. Splenic changes may also be due to early phase of contrast injection but ischemic changes need to be considered due to the soft tissue partially obstructing the celiac axis. 4. No free fluid and no adenopathy. Notified DANIEL Hadley at 09/21/2022 3:51 PM. Laboratory Results WBC 20.7 10^3/uL (4.0-10.0) H 09/22/22 06:44 Corrected WBC Cancelled 09/21/22 14:20 RBC 3.87 10^6/uL (4.1-5.3) L 09/22/22 06:44 Hgb 7.6 g/dL (11.5-15.3) L 09/22/22 06:44 Hct 28.2 % (37.0-47.0) L 09/22/22 06:44 MCV 72.9 fl (81-99) L 09/22/22 06:44 MCH 19.6 pg (28.0-34.0) L 09/22/22 06:44 MCHC 27.0 g/dL (30.0-36.0) L 09/22/22 06:44 RDW 22.2 % (12.1-15.1) H 09/22/22 06:44 Plt Count 648 10^3/cmm (130-400) H 09/22/22 06:44 MPV 8.5 fL (7.4-10.4) 09/22/22 06:44 Gran % Cancelled 09/21/22 14:20 Neut % (Auto) 79.8 % 09/22/22 06:44 Lymph % (Auto) 10.2 % 09/22/22 06:44 Wells % (Auto) 8.7 % 09/22/22 06:44 Eos % (Auto) 0.2 % 09/22/22 06:44 Baso % (Auto) 0.4 % 09/22/22 06:44 Neut # (Auto) 16.56 10^3/uL (1.8-7.7) H 09/22/22 06:44 Lymph # (Auto) 2.1 10^3/uL (0.8-4.8) 09/22/22 06:44 Wells # (Auto) 1.8 10^3/uL (0.2-0.9) H 09/22/22 06:44 Eos # (Auto) 0.0 10^3/uL (0.0-0.8) 09/22/22 06:44 Baso # (Auto) 0.1 10^3/uL (0.0-0.1) 09/22/22 06:44 Absolute Gran (auto) Cancelled 09/21/22 14:20 Nucleated RBC % (auto) 0.1 % 09/22/22 06:44 Nucleated RBCs # 0.0 /100WBC 09/22/22 06:44 PT 13.60 SECONDS (12.1-14.9) 09/22/22 02:50 INR 1.01 (0.8-1.2) 09/22/22 02:50 APTT 39.8 SECONDS (23.9-36.7) H 09/22/22 02:50 Sodium 141 mmol/L (136-145) 09/22/22 06:44 Potassium 3.5 mmol/L (3.5-5.1) 09/22/22 06:44 Chloride 110 mmol/L (98-107) H 09/22/22 06:44 Carbon Dioxide 20 mmol/L (22-29) L 09/22/22 06:44 Anion Gap 14.5 (5-19) 09/22/22 06:44 BUN 8 mg/dL (6-20) 09/22/22 06:44 Creatinine 0.5 mg/dL (0.5-0.9) 09/22/22 06:44 GFR Calculation 131.7 mL/min (90-130) H 09/22/22 06:44 Glucose 136 mg/dL (65-115) H 09/22/22 06:44 Calculated Osmolality 292 mOsm/kg (285-295) 09/22/22 06:44 Lactic Acid 0.9 mmol/L (0.5-2.2) 09/22/22 06:44 Lactate 1.6 mmol/L (0.5-2.2) 09/22/22 04:27 Calcium 7.7 mg/dL (8.5-10.5) L 09/22/22 06:44 Total Bilirubin 0.2 mg/dL (0.15-1.2) 09/22/22 06:44 AST 13 U/L (0-32) 09/22/22 06:44 ALT < 5 U/L (0-33) 09/22/22 06:44 Alkaline Phosphatase 137 U/L (35-105) H 09/22/22 06:44 Total Protein 5.4 g/dL (6.6-8.7) L D 09/22/22 06:44 Albumin 3.0 g/dL (3.5-5.2) L 09/22/22 06:44 Globulin 2.4 g/dL (1.3-4.6) 09/22/22 06:44 Lipase 22 U/L (13-60) 09/21/22 15:09 HCG, Qual Negative (Negative) 09/21/22 14:20 Urine Color Light yellow (Yellow) 09/21/22 14:56 Urine Appearance Clear (CLEAR) 09/21/22 14:56 Urine pH 5 (5-7) 09/21/22 14:56 Ur Specific Carnation 1.020 (1.005-1.030) 09/21/22 14:56 Urine Protein Neg (Negative) 09/21/22 14:56 Urine Glucose (UA) Norm (Normal) 09/21/22 14:56 Urine Ketones Negative (Negative) 09/21/22 14:56 Urine Blood Neg (Negative) 09/21/22 14:56 Urine Nitrate Negative (Negative) 09/21/22 14:56 Urine Bilirubin Neg (Negative) 09/21/22 14:56 Urine Urobilinogen Norm mg/dL (Negative) 09/21/22 14:56 Ur Leukocyte Esterase Negative (Negative) 09/21/22 14:56 Blood Type O Positive 09/22/22 08:07 Rho(D) Type Positive 09/22/22 08:07 Antibody Screen Negative 09/22/22 08:07 Crossmatch See Detail 09/22/22 08:07 Discharge Plan Discharge Patient Disposition: Xfer Short-Term Hosp Clinical Impression: Acute ischemia of small intestine, Abdominal aorta thrombosis Abdominal pain Qualifiers: Abdominal location: left upper quadrant Qualified Code(s): R10.12 - Left upper quadrant pain Leukocytosis Qualifiers: Leukocytosis type: unspecified Qualified Code(s): D72.829 - Elevated white blood cell count, unspecified Condition: Stable Referrals: Gee Simon [Primary Care Provider] - Patient Instructions: Abdominal Pain (ED) Coding Level of Care Code 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 Documented by User: Mohan Porter DO 09/22/22 16:06 HPI - Abdominal Pain General: Chief Complaint: Abdominal Pain Stated Complaint: ABD PAIN Time Seen by Provider: 09/21/22 13:44 PFSH ED PFSH: Medical History Acute hypokalemia MARLEEN (acute kidney injury) Chronic diarrhea Depression Failure to thrive Gastroenteritis Surgical History History of appendectomy History of tonsillectomy History of tubal ligation S/P breast augmentation S/P laparotomy Social History Smoking and tobacco status: current every day smoker Alcohol intake: never Physical Exam Neuro: MIGUEL COMA SCALE: document GCS findings Miguel coma scale total score: 15 Course Vital Signs: Vital signs: Vital Signs Temperature 98.1 F 09/22/22 09:59 Pulse Rate 87 09/22/22 09:59 Respiratory Rate 78 H 09/22/22 09:59 Blood Pressure 124/71 09/22/22 09:59 Pulse Oximetry 98 09/22/22 09:59 Oxygen Delivery Me thod 09/21/22 18:47 MDM - Abdominal Pain Medical Decision Making Patient here with severe abdominal pain out of proportion to exam. Blood work shows a white count of 28.9. Lactate surprisingly is normal at 1.7. 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 She has got a markedly abnormal small bowel and there is concern for ischemic bowel. We have contacted [facility] in [place] both of which cannot accept patient at this time. She has been started on Heparin and Zosyn. Care transferred to Dr. Arrington as my shift is ending. 1714: Assumed care from DANIEL Hadley. Upon review of CT of the abdomen pelvis CT report patient either has ischemic or infectious enteritis of the small bowel. Mild hyperemia of the fluid-filled colon also. No obstruction. 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 May have ischemia to the spleen from this thrombus or embolic disease. No free fluid or adenopathy in the abdomen. Her white count is 29,000 with left shift. We will start patient on IV Zosyn. We have attempted to transfer the patient to tertiary care center. However, [facility], [facility], [facility], and [facility] are all full and not accepting transfers. Did discuss with the transfer center with [facility]. They state they are also full but will try to find a bed for this patient. They will call back with possible bed availability. 1924: Discussed with general surgeon at [facility] with Dr. Torres. He did not accept the patient and recommended patient be referred to [facility] to general surgeon there due to closer proximity. 2021: Discussed case with Dr. Pham of vascular surgeon at [facility]. He excepted the patient in transfer there. He states patient will need to go to stepdown unit or ICU. I went discussed the case with the patient and gave her an update of what was going on. She had no IV fluids or IV heparin hanging. I checked the orders and heparin drip had not been ordered by physician legal administrative assistant as we had discussed. Patient did receive IV heparin bolus. Patient also received Zosyn. Ordered second dose of IV Zosyn at 2330. Heparin drip has been ordered as well. Patient has been accepted to [facility]. Patient may have to be flown by air ambulance due to no ground ambulance is available at this time. Assumed care at change of shift. Reviewed chart. Repeat CBC CMP and lactate series this morning. Patient will be due for Zosyn at 730. staff nurse anesthetist states patient complaining of abdominal pain repeat morphine and ondansetron. There are is an accepting physician at [facility] however we are waiting on a bed assignment. Bed assignment received patient transferred via [facility] to [facility] in stable condition. Medical Records I reviewed the patient's medical records. Lab Data I reviewed the patient's lab results. 09/21/22 15:09 09/21/22 15:09 Labs/Radiology: Radiology Impressions Abdomen/Pelvis CT 09/21/22 13:53 IMPRESSION: 1. Markedly abnormal small bowel loops. Numerous small bowel wall thickening with hyperemia and narrowing of the lumen in the central abdomen. Adjacent prior small bowel clips are identified. There are a few small foci of air which may be pneumatosis or ulcerations extending into the small bowel mucosa. 2. Fluid-filled colon with mild hyperemia. No obstruction. There is mild wall thickening of the colon towards the rectum. 3. 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 The abnormal appearance of the spleen may be related to ischemia or embolic disease from thrombus. Splenic changes may also be due to early phase of contrast injection but ischemic changes need to be considered due to the soft tissue partially obstructing the celiac axis. 4. No free fluid and no adenopathy. Notified DANIEL Hadley at 09/21/2022 3:51 PM. Laboratory Results WBC 20.7 10^3/uL (4.0-10.0) H 09/22/22 06:44 Corrected WBC Cancelled 09/21/22 14:20 RBC 3.87 10^6/uL (4.1-5.3) L 09/22/22 06:44 Hgb 7.6 g/dL (11.5-15.3) L 09/22/22 06:44 Hct 28.2 % (37.0-47.0) L 09/22/22 06:44 MCV 72.9 fl (81-99) L 09/22/22 06:44 MCH 19.6 pg (28.0-34.0) L 09/22/22 06:44 MCHC 27.0 g/dL (30.0-36.0) L 09/22/22 06:44 RDW 22.2 % (12.1-15.1) H 09/22/22 06:44 Plt Count 648 10^3/cmm (130-400) H 09/22/22 06:44 MPV 8.5 fL (7.4-10.4) 09/22/22 06:44 Gran % Cancelled 09/21/22 14:20 Neut % (Auto) 79.8 % 09/22/22 06:44 Lymph % (Auto) 10.2 % 09/22/22 06:44 Wells % (Auto) 8.7 % 09/22/22 06:44 Eos % (Auto) 0.2 % 09/22/22 06:44 Baso % (Auto) 0.4 % 09/22/22 06:44 Neut # (Auto) 16.56 10^3/uL (1.8-7.7) H 09/22/22 06:44 Lymph # (Auto) 2.1 10^3/uL (0.8-4.8) 09/22/22 06:44 Wells # (Auto) 1.8 10^3/uL (0.2-0.9) H 09/22/22 06:44 Eos # (Auto) 0.0 10^3/uL (0.0-0.8) 09/22/22 06:44 Baso # (Auto) 0.1 10^3/uL (0.0-0.1) 09/22/22 06:44 Absolute Gran (auto) Cancelled 09/21/22 14:20 Nucleated RBC % (auto) 0.1 % 09/22/22 06:44 Nucleated RBCs # 0.0 /100WBC 09/22/22 06:44 PT 13.60 SECONDS (12.1-14.9) 09/22/22 02:50 INR 1.01 (0.8-1.2) 09/22/22 02:50 APTT 39.8 SECONDS (23.9-36.7) H 09/22/22 02:50 Sodium 141 mmol/L (136-145) 09/22/22 06:44 Potassium 3.5 mmol/L (3.5-5.1) 09/22/22 06:44 Chloride 110 mmol/L (98-107) H 09/22/22 06:44 Carbon Dioxide 20 mmol/L (22-29) L 09/22/22 06:44 Anion Gap 14.5 (5-19) 09/22/22 06:44 BUN 8 mg/dL (6-20) 09/22/22 06:44 Creatinine 0.5 mg/dL (0.5-0.9) 09/22/22 06:44 GFR Calculation 131.7 mL/min (90-130) H 09/22/22 06:44 Glucose 136 mg/dL (65-115) H 09/22/22 06:44 Calculated Osmolality 292 mOsm/kg (285-295) 09/22/22 06:44 Lactic Acid 0.9 mmol/L (0.5-2.2) 09/22/22 06:44 Lactate 1.6 mmol/L (0.5-2.2) 09/22/22 04:27 Calcium 7.7 mg/dL (8.5-10.5) L 09/22/22 06:44 Total Bilirubin 0.2 mg/dL (0.15-1.2) 09/22/22 06:44 AST 13 U/L (0-32) 09/22/22 06:44 ALT < 5 U/L (0-33) 09/22/22 06:44 Alkaline Phosphatase 137 U/L (35-105) H 09/22/22 06:44 Total Protein 5.4 g/dL (6.6-8.7) L D 09/22/22 06:44 Albumin 3.0 g/dL (3.5-5.2) L 09/22/22 06:44 Globulin 2.4 g/dL (1.3-4.6) 09/22/22 06:44 Lipase 22 U/L (13-60) 09/21/22 15:09 HCG, Qual Negative (Negative) 09/21/22 14:20 Urine Color Light yellow (Yellow) 09/21/22 14:56 Urine Appearance Clear (CLEAR) 09/21/22 14:56 Urine pH 5 (5-7) 09/21/22 14:56 Ur Specific Carnation 1.020 (1.005-1.030) 09/21/22 14:56 Urine Protein Neg (Negative) 09/21/22 14:56 Urine Glucose (UA) Norm (Normal) 09/21/22 14:56 Urine Ketones Negative (Negative) 09/21/22 14:56 Urine Blood Neg (Negative) 09/21/22 14:56 Urine Nitrate Negative (Negative) 09/21/22 14:56 Urine Bilirubin Neg (Negative) 09/21/22 14:56 Urine Urobilinogen Norm mg/dL (Negative) 09/21/22 14:56 Ur Leukocyte Esterase Negative (Negative) 09/21/22 14:56 Blood Type O Positive 09/22/22 08:07 Rho(D) Type Positive 09/22/22 08:07 Antibody Screen Negative 09/22/22 08:07 Crossmatch See Detail 09/22/22 08:07 Discharge Plan Discharge Patient Disposition: Xfer Short-Term Hosp Clinical Impression: Acute ischemia of small intestine, Abdominal aorta thrombosis Abdominal pain Qualifiers: Abdominal location: left upper quadrant Qualified Code(s): R10.12 - Left upper quadrant pain Leukocytosis Qualifiers: Leukocytosis type: unspecified Qualified Code(s): D72.829 - Elevated white blood cell count, unspecified Condition: Stable Referrals: Gee Simon [Primary Care Provider] - Patient Instructions: Abdominal Pain (ED) Coding Level of Care Code 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
--- NOTE | 2022-09-21 13:53 | CT_ITS ---
WS: [id number] CT ABDOMEN AND PELVIS WITH CONTRAST HISTORY: abdominal pain, N/V TECHNIQUE: Imaging performed of the abdomen and pelvis with IV contrast. Single phase imaging of the abdomen. Coronal and sagittal reformats are submitted. All CT scans at [facility] use at ana st one of these dose optimization techniques: automated exposure control; mA and/or kV adjustment per patient size (includes targeted exams where dose is matched to clinical indication); or iterative re construction. IV CONTRAST: Omnipaque 350; 95 mL IV. Oral contrast: No DLP: 320.37 mGy.cm COMPARISON: 07/31/2021 Lower thorax: Lung bases are clear. Heart is normal size. No hiatal hernia. Liver/biliary system: Mildly prominent liver. No mass identified. No bile duct dilatation. Portal vei n is normally enhancing. Superior mesenteric vein is negative. Gallbladder: Normal. No gallstones or wall thickening. No pericholecystic fluid. Pancreas: Normal size pancreas and pancreatic duct. No adjacent inflammation. Spleen: Abnormal appearance to the spleen. There is mixed enhancement and attenuation. No adjacent ed ankush. Adrenal glands: Normal. Right kidney: Normal size kidney with several cortical hypodensities which are too small to character ize. Left kidney: Normal size with several hypodensities which are too small to characterize. Aorta: There is a large soft plaque in the aorta near the origin of the celiac axis. Plaque measures 1.4 cm and may be partially obstructing the celiac axis. This may be resulting in ischemic changes wi thin the spleen. The entire splenic artery is not traceable. The proximal SMA is normal. No filling d efects or thrombus. Lymphadenopathy: None. Free fluid: None. GI tract: Stomach is moderately well distended with fluid. There is mild thickening of the stomach an trum which may be due to partial distention. Several abnormal small bowel loops are identified. There is marked wall thickening. Confluent small bowel with wall thickening and enhancement in the central abdomen. There are a few small foci of air within the central small bowel which can be seen with adan g-standing chronic obstruction. There are a few small foci of air suggestive of pneumatosis. No free air. There are surgical clips in the central small bowel which are surrounded by enhancement and ente ritis. Fluid-filled loops of colon. There is mild hyperemia of the wall. There is mild circumferentia l thickening and enhancement involving the distal colon. Abdominal wall: Unremarkable abdominal wall. No hernia. Pelvis: No free fluid or adenopathy. Millimeter distended urinary bladder. Uterus is present and ante verted. Bones: Unremarkable. CT/CT abdomen pelvis w con* [id number] IMPRESSION: 1. Markedly abnormal small bowel loops. Numerous small bowel wall thickening w ith hyperemia and narrowing of the lumen in the central abdomen. Adjacent prior small bowel clips are identified. There are a few small foci of air which may be pneumatosis or ulcerations extending into the small bowel mucosa. 2. Fluid-filled colon with mild hyperemia. No obstruction. There is mild wall thickening of the colon towards the rectum. 3. 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 The abno rmal appearance of the spleen may be related to ischemia or embolic disease fro m thrombus. Splenic changes may also be due to early phase of contrast injectio n but ischemic changes need to be considered due to the soft tissue partially o bstructing the celiac axis. 4. No free fluid and no adenopathy. Notified DANIEL Hadley at 09/21/2022 3:51 PM.
[2022-09-21] MEDS: metoclopramide 5 mg/mL SDV 2 mL 10 MG IVP (13:59)
[2022-09-21] MEDS: HYDROmorphone 1 mg/mL INJ 1 mL IVP (13:59)
[2022-09-21 14:55] LABS: HCG, Serum Qual Negative (Negative)
[2022-09-21 15:01] LABS: Lactic Sepsis W/Reflex 1.7 mmol/L (0.5-2.2)
[2022-09-21 15:16] LABS: Add Urine Microscopic? NO; Charge for UA Resulting for Rev
[2022-09-21] MEDS: iohexol 350 mg/mL 500 mL Btl (per mL) IV (15:20)
[2022-09-21 15:22] LABS: Basophils # 0.1 10^3/uL (0.0-0.1); Basophils % 0.3 %; Hematocrit 36.2 % (37.0-47.0); Hemoglobin 9.4 g/dL (11.5-15.3); Lymphocytes # 0.6 10^3/uL (0.8-4.8); Mean Corpuscular Hemoglobin 19.4 pg (28.0-34.0); Mean Corpuscular Volume 74.8 fl (81-99); Mean Platelet Volume 8.2 fL (7.4-10.4); Monocytes # 1.5 10^3/uL (0.2-0.9); Monocytes % 5.1 %; Neutrophils # 26.49 10^3/uL (1.8-7.7); Neutrophils % 91.8 %; Nucleated Red Blood Cells % 0 %; Platelet Count 840 10^3/cmm (130-400); Red Blood Count 4.84 10^6/uL (4.1-5.3); Red Cell Distribution Width 22.5 % (12.1-15.1); White Blood Count 28.9 10^3/uL (4.0-10.0)
[2022-09-21 15:26] LABS: Bilirubin Urine Neg (Negative); Blood Urine Neg (Negative); Glucose Urine UA Norm (Normal); Ketones Urine Negative (Negative); Leukocyte Esterase Urine Negative (Negative); Nitrate Urine Negative (Negative); Protein Urine Neg (Negative); Urine Appearance Clear (CLEAR); Urine Color Light yellow (Yellow); Urobilinogen Urine Norm (Negative); pH Urine 5 (5-7)
[2022-09-21 15:40] LABS: Alanine Aminotransferase 8 U/L (0-33); Albumin Level 3.8 g/dL (3.5-5.2); Alkaline Phosphatase 175 U/L (35-105); Anion Gap 16.9 (5-19); Aspartate Amino Transferase 15 U/L (0-32); Blood Urea Nitrogen 10 mg/dL (6-20); Calcium 8.6 mg/dL (8.5-10.5); Carbon Dioxide 20 mmol/L (22-29); Chloride 107 mmol/L (98-107); Glomerular Filtration Rate 106.7 mL/min (90-130); Glucose 124 mg/dL (65-115); Lipase 22 U/L (13-60); Osmolality Calculated 290 mOsm/kg (285-295); Potassium 3.9 mmol/L (3.5-5.1); Sodium 140 mmol/L (136-145); Total Bilirubin 0.2 mg/dL (0.15-1.2); Total Protein 6.8 g/dL (6.6-8.7)
[2022-09-21] MEDS: morphine 4 mg/mL SDV 1 mL IVP (15:45)
[2022-09-21] MEDS: ondansetron 2 mg/ML SDV 2 mL 4 MG IVP ×3 (16:30→23:31)
[2022-09-21] MEDS: heparin 5,000 unit/mL INJ 1 mL 3300 UNIT IVP (16:31)
--- NOTE | 2022-09-21 16:40 | PC.PHAR ---
pt and her verified medications-rx filled for adderall 10mg tid on 09/19/21 30d/s-pts states pt takes adderall 10mg bid pt states for the last few weeks she has just been taking 10mg daily-pt states she use to take kcl 20meq daily states not taken for 5-6 months-pt states she takes ibuprofen prn even tho its on her allergy list-notes are made in the pharmacy comments
[2022-09-21] MEDS: sodium chloride 0.9% 1,000 ML 999 ML IV (17:19)
[2022-09-21] MEDS: piperacillin-tazobactam 3.375 GM in sodium chloride 0.9% (plus) 50 ML IV ×2 (17:19→23:26)
[2022-09-21] MEDS: HYDROmorphone 1 mg/mL INJ 1 mL 0.5 MG IVP (18:37)
[2022-09-21] MEDS: LORazepam 2 mg/mL INJ 1 mL 0.5 MG IVP (20:32)
[2022-09-21] MEDS: heparin drip 25,000 UNIT/500 ML PREMIX 13.34 UNIT IV (20:53)
[2022-09-21] MEDS: dextrose 5%-sod chloride 0.9% 1,000 ML 150 ML IV (21:50)
[2022-09-22] VITALS (125 sets, daily range): BP systolic 99–128; BP diastolic 62–81; PULSE 84–122; RESP 12–78; TEMP 36.7–37.7; O2SAT 95–100
[2022-09-22] MEDS: HYDROmorphone 1 mg/mL INJ 1 mL IVP (02:56)
[2022-09-22 03:56] LABS: INR 1.01 (0.8-1.2)
[2022-09-22 03:57] LABS: Partial Thromboplastin Time 39.8 SECONDS (23.9-36.7)
[2022-09-22] MEDS: heparin 5,000 unit/mL INJ 1 mL 1908 UNIT IVP (04:20)
[2022-09-22 04:54] LABS: Lactate (Lactic Acid level) 1.6 mmol/L (0.5-2.2)
[2022-09-22] MEDS: ondansetron 2 mg/ML SDV 2 mL 4 MG IVP (06:37)
[2022-09-22] MEDS: morphine 4 mg/mL SDV 1 mL IVP (06:38)
[2022-09-22 07:02] LABS: Basophils # 0.1 10^3/uL (0.0-0.1); Basophils % 0.4 %; Eosinophils % 0.2 %; Hematocrit 28.2 % (37.0-47.0); Hemoglobin 7.6 g/dL (11.5-15.3); Lymphocytes # 2.1 10^3/uL (0.8-4.8); Lymphocytes % 10.2 %; Mean Corpuscular Hemoglobin 19.6 pg (28.0-34.0); Mean Corpuscular Volume 72.9 fl (81-99); Mean Platelet Volume 8.5 fL (7.4-10.4); Monocytes # 1.8 10^3/uL (0.2-0.9); Monocytes % 8.7 %; Neutrophils # 16.56 10^3/uL (1.8-7.7); Neutrophils % 79.8 %; Nucleated Red Blood Cells % 0.1 %; Platelet Count 648 10^3/cmm (130-400); Red Blood Count 3.87 10^6/uL (4.1-5.3); Red Cell Distribution Width 22.2 % (12.1-15.1); White Blood Count 20.7 10^3/uL (4.0-10.0)
[2022-09-22 07:19] LABS: Lactic Sepsis W/Reflex 0.9 mmol/L (0.5-2.2)
[2022-09-22 07:20] LABS: Alanine Aminotransferase < 5 U/L (0-33); Alkaline Phosphatase 137 U/L (35-105); Anion Gap 14.5 (5-19); Aspartate Amino Transferase 13 U/L (0-32); Blood Urea Nitrogen 8 mg/dL (6-20); Calcium 7.7 mg/dL (8.5-10.5); Carbon Dioxide 20 mmol/L (22-29); Chloride 110 mmol/L (98-107); Globulin 2.4 g/dL (1.3-4.6); Glomerular Filtration Rate 131.7 mL/min (90-130); Glucose 136 mg/dL (65-115); Osmolality Calculated 292 mOsm/kg (285-295); Potassium 3.5 mmol/L (3.5-5.1); Sodium 141 mmol/L (136-145); Total Bilirubin 0.2 mg/dL (0.15-1.2); Total Protein 5.4 g/dL (6.6-8.7)
--- NOTE | 2022-09-22 08:06 | PC.NURSE ---
antibiotics canceled at [address] Porter
--- NOTE | 2022-09-22 09:46 | PC.NURSE ---
EMS was here waiting for blood to be started, i started blood and EMS said they would take over care after the first set of vitals, care was turned over to transport
== END 2022-09-22 10:00 | disposition short-term general hospital (02) ==
PROVIDERS: Emergency Medicine; Physician Assistant; Emergency Provider Family Medicine; PCP Family Medicine
DX: R10.12 Left upper quadrant pain (principal); D72.829 Elevated white blood cell count, unspecified; K55.019 Acute (reversible) ischemia of small intestine, extent unspecified; I74.09 Other arterial embolism and thrombosis of abdominal aorta; F17.210 Nicotine dependence, cigarettes, uncomplicated
CPT/HCPCS: 36415; 51702; 74177; 80053; 81003; 83605; 83690; 84703; 85025; 85610; 85730; 86850; 86900; 86920; 96365; 96366; 96367; 96375; 96376; 99291; J1170; J1644; J2060; J2270; J2405; J2543; J2765; J7030; J7042; P9016; Q9967

== ENCOUNTER 2023-01-02 09:24 | Emergency (ER) | payer MEDICARE, MEDICAID, SELFPAY ==
[2023-01-02 09:25] VITALS: BP 120/95; PULSE 96; RESP 18; TEMP 36.3; O2SAT 98; BMI 15.6
[2023-01-02 09:33] VITALS: BP 128/59; PULSE 96; RESP 18; O2SAT 97
--- NOTE | 2023-01-02 09:53 | W.ED.ABDPA2 ---
HPI - Abdominal Pain General: Chief Complaint: Abdominal Pain Stated Complaint: ABD PAIN Time Seen by Provider: 01/02/23 09:34 History of Present Illness: Patient presents to the ER by EMS with complaints of generalized weakness for the past 2 weeks, abdominal pain, n/v/d. EMS administered 700 mils of fluid, 4 mg of Zofran and 50 mcg of fentanyl. Patient has an extensive history of abdominal surgeries. MD elicited complaint: abdominal pain Pain Consistency: constant Location: Diffuse Severity: moderate Quality: cramping and aching Radiation: none Migration to: no migration Exacerbating factors: eating and movement Relieving factors: nothing Associated Symptoms: Reports anorexia, diarrhea, nausea and vomiting; Denies chills, dysuria and fever(s) Review of Systems General: Reports: 10 or more systems reviewed and unremarkable except in HPI and below Const: Denies: fever(s) or chills Eyes: Denies: change in vision or photophobia ENMT: Denies: throat pain or enlarged tonsils Card: Denies: chest pain, palpitations or irregular heart rhythm Resp: Denies: dyspnea, productive cough or non-productive cough GI: Reports: abdominal pain, nausea, vomiting and diarrhea : Denies: flank pain, difficulty voiding or dysuria Musc: Denies: neck pain or back pain Skin/Breast: Denies: rash or pruritus Neuro: Denies: headache(s) Psych: Denies: anxiety PFSH ED PFSH: Medical History Acute hypokalemia MARLEEN (acute kidney injury) Chronic diarrhea Depression Failure to thrive Gastroenteritis Surgical History History of appendectomy History of tonsillectomy History of tubal ligation S/P breast augmentation S/P laparotomy Family History (Updated 01/02/23 @ 13:43 by Alin Armstrong MD) Mother CAD (coronary artery disease) Drug use Social History (Updated 01/02/23 @ 13:43 by Alin Armstrong MD) Smoking and tobacco status: current every day smoker Alcohol intake: never Substance/Drug Use: never Physical Exam Const: COMMON NORMALS: no acute distress, average body habitus, patient oriented x3, no limitations, healthy appearing, alert and well nourished HENMT: COMMON NORMALS: normocephalic, atraumatic, hearing grossly normal bilaterally, external ears normal and Normal nasal mucous membranes and turbinates present HEAD & SCALP: normocephalic and atraumatic NOSE: Normal nasal mucous membranes and turbinates present EXTERNAL EAR: Yes external ears normal Eye: COMMON NORMALS: Equal, round and reactive pupils present, EOMs intact bilaterally, conjunctivae normal and no scleral icterus CONJUNCTIVA: Yes conjunctivae normal PUPIL: Yes Equal, round and reactive pupils present Neck/C-Spine: COMMON NORMALS: full ROM, no lymphadenopathy, supple, no meningeal signs, no JVD and Thyroid normal THYROID: Thyroid normal Lymph: LYMPHATIC: no lymphadenopathy noted Chest: COMMONS NORMALS: normal inspection of the chest Resp: COMMON NORMALS: normal respiratory effort, No retractions, No use of accessory muscles and clear to auscultation bilaterally AUSCULTATION: clear to auscultation bilaterally Cardio: COMMON NORMALS: no JVD, S1 normal heart sound present, S2 normal heart sound present, No gallops present (Cardio), No clicks present (Cardio), No murmurs present (Cardio) and No rub (Cardio) HEART SOUNDS: S1 normal heart sound present and S2 normal heart sound present GI: COMMON NORMALS: Soft to palpation INSPECTION: Yes normal to inspection AUSCULTATION: Yes normoactive bowel sounds PALPATION: Yes Soft to palpation and Yes Tenderness to palpation present (GI) (Diffusely) : COMMON NORMALS: Yes no CVA tenderness BLADDER/KIDNEY EXAM: Yes no CVA tenderness Back/Pelvis: COMMON NORMALS: no CVA tenderness Neuro: COMMON NORMALS: patient oriented x3 SENSORIUM/ORIENTATION: Yes alert MENINGEAL SIGNS: Yes no meningeal signs Course Vital Signs: Vital signs: Vital Signs Temperature 97.4 F L 01/02/23 09:25 Pulse Rate 90 01/02/23 17:14 Respiratory Rate 18 01/02/23 17:14 Blood Pressure 124/81 01/02/23 17:14 Pulse Oximetry 100 01/02/23 17:14 Oxygen Delivery Me thod Room Air 01/02/23 17:14 MDM - Abdominal Pain Medical Decision Making Patient presents to the ER with history of 2 weeks of generalized weakness and abdominal pain. Patient does have a history of Crohn's and multiple abdominal surgeries. Lab work was obtained which showed a white count of 21.5, BUN/creatinine of 22 and 2.0, lactic acid 3.1, urine drug screen is positive for amphetamines and benzos, noncontrasted CT scan of the abdomen pelvis showed findings suspicious for enterocolitis. Patient was given 50 mg IV of fentanyl, 4 mg Zofran, and we are bolusing her 2 L normal saline, 40 mEq oral potassium for potassium was 2.9. Dr. Armstrong was consulted and is coming to the ER to see the patient. 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 This is concerning for ischemic bowel disease that we cannot imaging out secondary to her elevated INR. Patient be transferred back to [facility] in [place] where they treated her aortic thrombosis and has a vascular surgeon if needed. Medical Records I reviewed the patient's medical records. Lab Data I reviewed the patient's lab results. 01/02/23 10:24 01/02/23 10:24 Labs/Radiology: Radiology Impressions Abdomen/Pelvis CT 01/02/23 11:02 IMPRESSION: 1. Findings suspicious for enterocolitis. This could be related to Crohn's disease. 2. Solid pulmonary nodules measuring up to 4.1 mm. As per Fleischner Society 2017 guidelines for follow-up and management of pulmonary nodules: For patients at low risk (minimal or absent history of smoking and of other known risk factors), no routine follow-up. For patient at high risk (history of smoking or of other known risk factors), recommend optional CT at 12 months. 3. Hepatomegaly. 4. Mild retroperitoneal lymphadenopathy. 5. Nonobstructive left renal stones. 6. Probable small cyst in the left ovary. COMMENTS: Consistent with the [employer]'s Incidental Findings Committee white paper (J Am Zenon Radiol 2018): Any incidental renal lesion less than 1 cm or classified as too small to characterize, or any incidental cystic renal lesion characterized as simple-appearing, is likely benign. No follow-up imaging is recommended for these lesions per consensus recommendations based on imaging criteria. Chest X-Ray 01/02/23 12:17 IMPRESSION: No acute cardiopulmonary abnormality identified. Gallbladder Ultrasound 01/02/23 12:17 IMPRESSION: No acute abnormality identified. Laboratory Results WBC 21.5 10^3/uL (4.0-10.0) H 01/02/23 10:24 RBC 6.23 10^6/uL (4.1-5.3) H 01/02/23 10:24 Hgb 15.6 g/dL (11.5-15.3) H 01/02/23 10:24 Hct 50.7 % (37.0-47.0) H 01/02/23 10:24 MCV 81.4 fl (81-99) 01/02/23 10:24 MCH 25.0 pg (28.0-34.0) L 01/02/23 10:24 MCHC 30.8 g/dL (30.0-36.0) 01/02/23 10:24 RDW 16.9 % (12.1-15.1) H 01/02/23 10:24 Plt Count 639 10^3/cmm (130-400) H 01/02/23 10:24 MPV 8.8 fL (7.4-10.4) 01/02/23 10:24 Neut % (Auto) 85.6 % 01/02/23 10:24 Lymph % (Auto) 6.0 % 01/02/23 10:24 [place] % (Auto) 6.7 % 01/02/23 10:24 Eos % (Auto) 0.0 % 01/02/23 10:24 Baso % (Auto) 0.5 % 01/02/23 10:24 Neut # (Auto) 18.41 10^3/uL (1.8-7.7) H 01/02/23 10:24 Lymph # (Auto) 1.3 10^3/uL (0.8-4.8) 01/02/23 10:24 [place] # (Auto) 1.4 10^3/uL (0.2-0.9) H 01/02/23 10:24 Eos # (Auto) 0.0 10^3/uL (0.0-0.8) 01/02/23 10:24 Baso # (Auto) 0.1 10^3/uL (0.0-0.1) 01/02/23 10:24 Nucleated RBC % (auto) 0 % 01/02/23 10:24 Nucleated RBCs # 0.0 /100WBC 01/02/23 10:24 ESR 5 mm/hr (0-15) 01/02/23 12:36 Sodium 129 mmol/L (136-145) L 01/02/23 10:24 Potassium 2.9 mmol/L (3.5-5.1) L 01/02/23 10:24 Chloride 92 mmol/L (98-107) L 01/02/23 10:24 Carbon Dioxide 17 mmol/L (22-29) L 01/02/23 10:24 Anion Gap 22.9 (5-19) H 01/02/23 10:24 BUN 22 mg/dL (6-20) H 01/02/23 10:24 Creatinine 2.0 mg/dL (0.5-0.9) H 01/02/23 10:24 GFR Calculation 26.6 mL/min (90-130) L 01/02/23 10:24 Glucose 124 mg/dL (65-115) H 01/02/23 10:24 Calculated Osmolality 273 mOsm/kg (285-295) L 01/02/23 10:24 Lactic Acid 3.1 mmol/L (0.5-2.2) H 01/02/23 10:24 Lactic Acid (Sepsis) 2.9 mmol/L (0.5-2.2) H 01/02/23 12:36 Calcium 8.2 mg/dL (8.5-10.5) L 01/02/23 10:24 Magnesium 2.2 mg/dL (1.7-2.3) 01/02/23 10:24 Total Bilirubin 0.2 mg/dL (0.15-1.2) 01/02/23 10:24 AST 30 U/L (0-32) 01/02/23 10:24 ALT 18 U/L (0-33) 01/02/23 10:24 Alkaline Phosphatase 137 U/L (35-105) H 01/02/23 10:24 Troponin T Baseline 18 ng/L (0-10) H 01/02/23 12:36 Troponin T 120 Minute 17.42 ng/L (0-10) H 01/02/23 14:37 Delta Troponin T -0.58 ABS# (0-10) L 01/02/23 14:37 C-Reactive Protein 45.7 mg/L (0.0-4.9) H 01/02/23 12:36 Total Protein 7.2 g/dL (6.6-8.7) 01/02/23 10:24 Albumin 4.2 g/dL (3.5-5.2) 01/02/23 10:24 Globulin 3.0 g/dL (1.3-4.6) 01/02/23 10:24 Lipase 47 U/L (13-60) 01/02/23 10:24 Procalcitonin 0.61 ng/mL (0-0.5) H 01/02/23 12:36 HCG, Qual Negative (Negative) 01/02/23 10:12 Urine Color Yellow (Yellow) 01/02/23 10:12 Urine Appearance Clear (CLEAR) 01/02/23 10:12 Urine pH 5 (5-7) 01/02/23 10:12 Ur Specific [place] 1.020 (1.005-1.030) 01/02/23 10:12 Urine Protein 1+ (Negative) H 01/02/23 10:12 Urine Glucose (UA) Norm (Normal) 01/02/23 10:12 Urine Ketones Negative (Negative) 01/02/23 10:12 Urine Blood 3+ (Negative) H 01/02/23 10:12 Urine Nitrate Negative (Negative) 01/02/23 10:12 Urine Bilirubin Neg (Negative) 01/02/23 10:12 Urine Urobilinogen Norm mg/dL (Negative) 01/02/23 10:12 Ur Leukocyte Esterase Negative (Negative) 01/02/23 10:12 Urine RBC 5-10 /hpf (0-2) H 01/02/23 10:12 Urine WBC 5-10 /hpf (0-5) H 01/02/23 10:12 Ur Squamous Epith Cells 15-25 /hpf (0-5) H 01/02/23 10:12 Amorphous Sediment Not Reportable 01/02/23 10:12 Urine Bacteria Trace /hpf (NONE) 01/02/23 10:12 Hyaline Casts 5-10 /lpf H 01/02/23 10:12 Urine Mucus 2+ /hpf 01/02/23 10:12 Urine Opiates Screen Negative ng/mL (Negative) 01/02/23 10:12 Ur Barbiturates Screen Negative ng/mL (Negative) 01/02/23 10:12 Ur Phencyclidine Scrn Negative ng/mL (Negative) 01/02/23 10:12 Ur Amphetamines Screen Positive ng/mL (Negative) H 01/02/23 10:12 U Benzodiazepines Scrn Positive ng/mL (Negative) H 01/02/23 10:12 Urine Cocaine Screen Negative ng/mL (Negative) 01/02/23 10:12 U Marijuana (THC) Screen Negative ng/mL (Negative) 01/02/23 10:12 Hepatitis A IgM Ab Non-reactive (Nonreactive) 01/02/23 12:36 Hep Bs Antigen Non-reactive (Nonreactive) 01/02/23 12:36 Hep B Core IgM Ab Non-reactive (Nonreactive) 01/02/23 12:36 Hepatitis C Antibody Non-reactive (Nonreactive) 01/02/23 12:36 HIV 1&2 Ab & HIV 1 Ag Non-reactive (Non-Reactiv) 01/02/23 12:36 HIV 1&2 Antibody Non-reactive (Non-Reactiv) 01/02/23 12:36 EKG Data EKG 1: I personally reviewed and interpreted this EKG as follows: EKG interpretation date: 01/02/23 EKG interpretation time: 13:30 Prior EKG tracings: not available for review Interpretation: EKG showed ventricular rate 104 bpm, TX interval 134, QRS duration 86, QTc of 405, sinus tachycardia possible left atrial enlargement, ST deviation moderate T wave abnormality with negative T waves in V3 4 5 and 6, and 2 and aVF EKG 2: I personally reviewed and interpreted this EKG as follows: EKG interpretation date: 01/02/23 EKG interpretation time: 15:02 Prior EKG tracings: available for review Interpretation: EKG showed ventricular rate 110 bpm, TX interval 123, QRS duration 86, QTc 408, sinus tachycardia, possible right atrial enlargement, ST deviation and moderate T wave abnormalities in 2 aVF 1 aVL V5 V6 Discharge Plan Discharge Patient Disposition: Xfer Short-Term Hosp Clinical Impression: Colitis, Acute hypokalemia, Elevated lactic acid level, Acute kidney insufficiency Leukocytosis Qualifiers: Leukocytosis type: unspecified Qualified Code(s): D72.829 - Elevated white blood cell count, unspecified Condition: Stable Discharge Orders: Transfer Out of Facility (Order); Ordered 01/02/23 Ordered By: Zaid Lopez Referrals: Gee Simon [Primary Care Provider] - Coding Level of Care Code ED Invoice Control Clerk for Khoa Szymanski
[2023-01-02] MEDS: sodium chloride 0.9% 1,000 ML 999 ML IV ×2 (09:58→12:22)
[2023-01-02 10:38] LABS: Basophils # 0.1 10^3/uL (0.0-0.1); Basophils % 0.5 %; Hematocrit 50.7 % (37.0-47.0); Hemoglobin 15.6 g/dL (11.5-15.3); Lymphocytes # 1.3 10^3/uL (0.8-4.8); Mean Corpuscular HGB Conc 30.8 g/dL (30.0-36.0); Mean Corpuscular Volume 81.4 fl (81-99); Mean Platelet Volume 8.8 fL (7.4-10.4); Monocytes # 1.4 10^3/uL (0.2-0.9); Monocytes % 6.7 %; Neutrophils # 18.41 10^3/uL (1.8-7.7); Neutrophils % 85.6 %; Nucleated Red Blood Cells % 0 %; Platelet Count 639 10^3/cmm (130-400); Red Blood Count 6.23 10^6/uL (4.1-5.3); Red Cell Distribution Width 16.9 % (12.1-15.1); White Blood Count 21.5 10^3/uL (4.0-10.0)
[2023-01-02] MEDS: fentaNYL 50 mcg/mL INJ 2mL IVP (10:38)
[2023-01-02] MEDS: ondansetron 2 mg/ML SDV 2 mL 4 MG IVP (10:38)
[2023-01-02 10:47] LABS: Amphetamines Screen Urine Positive (Negative); Barbiturates Screen Urine Negative (Negative); Benzodiazepines Screen Urine Positive (Negative); Cocaine Screen Urine Negative (Negative); Opiate Screen Urine Negative (Negative); PCP Screen Urine Negative (Negative); THC Screen Urine Negative (Negative)
[2023-01-02 10:49] LABS: Add Urine Microscopic? YES; Bilirubin Urine Neg (Negative); Blood Urine 3+ (Negative); Glucose Urine UA Norm (Normal); Ketones Urine Negative (Negative); Leukocyte Esterase Urine Negative (Negative); Nitrate Urine Negative (Negative); Protein Urine 1+ (Negative); Urine Appearance Clear (CLEAR); Urine Color Yellow (Yellow); Urobilinogen Urine Norm (Negative); pH Urine 5 (5-7)
[2023-01-02 10:50] LABS: Add Urine Culture? No; Bacteria Urine TRACE /hpf; Mucus Urine 2+ /hpf; Squamous Epithelial Cell Urine 15-25 /hpf (0-5)
[2023-01-02 10:56] LABS: Alanine Aminotransferase 18 U/L (0-33); Albumin Level 4.2 g/dL (3.5-5.2); Alkaline Phosphatase 137 U/L (35-105); Anion Gap 22.9 (5-19); Aspartate Amino Transferase 30 U/L (0-32); Blood Urea Nitrogen 22 mg/dL (6-20); Calcium 8.2 mg/dL (8.5-10.5); Carbon Dioxide 17 mmol/L (22-29); Chloride 92 mmol/L (98-107); Glomerular Filtration Rate 26.6 mL/min (90-130); Glucose 124 mg/dL (65-115); Lipase 47 U/L (13-60); Magnesium 2.2 mg/dL (1.7-2.3); Osmolality Calculated 273 mOsm/kg (285-295); Sodium 129 mmol/L (136-145); Total Bilirubin 0.2 mg/dL (0.15-1.2); Total Protein 7.2 g/dL (6.6-8.7)
[2023-01-02 10:57] LABS: Lactic Sepsis W/Reflex 3.1 mmol/L (0.5-2.2)
[2023-01-02 11:01] LABS: Potassium 2.9 mmol/L (3.5-5.1)
--- NOTE | 2023-01-02 11:02 | CTR_ITS ---
PROCEDURE INFORMATION: Exam: CT Abdomen And Pelvis Without Contrast Exam date and time: 01/02/2023 11:12 AM Age: 47 years old Clinical indication: Generalized abdominal pain with fever and nausea. Prior Caesarean section x3 and jejunectomy. History of Crohn's disease. Nausea, vomiting and diarrhea. TECHNIQUE: Imaging protocol: Computed tomography of the abdomen and pelvis without contrast. Radiation optimization: All CT scans at this facility use at least one of these dose optimization techniques: automated exposure control; mA and/or kV adjustment per patient size (includes targeted exams where dose is matched to clinical indication); or iterative reconstruction. REPORTING DATA: Count of CT and Cardiac NM exams in prior 12 months: This patient has received [address] and 0 known cardiac nuclear medicine studies in the 12 months prior to the current study. COMPARISON: CT abdomen pelvis w con* [id number] 09/21/2022 3:14 PM RADIATION DOSE METRICS: Total DLP (mGy-cm): 321.93 FINDINGS: Lungs: Solid pulmonary nodule at the right base measuring 2.4 mm (image 6). Solid pulmonary nodule at the left base measuring 4.1 mm (image 6). Solid pulmonary nodule at the left base measuring 2.8 mm (image 3). Solid pulmonary nodule in the lingula measuring 3.3 mm (image 1). No pericardial effusion. No hiatal hernia. Liver: The liver is enlarged measuring 19.9 cm. A 3.9 mm hepatic hypodensity is too small to accurately characterize and requires no follow-up. Gallbladder and bile ducts: The gallbladder is unremarkable. Pancreas: The pancreas is unremarkable. Spleen: The spleen is unremarkable. Adrenal glands: The adrenal glands are unremarkable. Kidneys and ureters: A subcentimeter right renal hypodensity is too small to accurately characterize and requires no follow-up. Nonobstructive left renal stones. No hydronephrosis. Stomach and bowel: There are numerous predominantly nondistended fluid-filled loops of small bowel, and there is fluid throughout the colon. There is mild prominence of the wall of segments of colon. Appendix: The appendix is not identified. Intraperitoneal space: No free intraperitoneal air. Vasculature: No abdominal aortic aneurysm. Lymph nodes: A left periaortic lymph node measures 1.3 x 1.0 cm. Urinary bladder: The bladder is unremarkable. Reproductive: Probable cyst in the left ovary measuring 1.3 cm. Bones/joints: No acute fracture is seen. CT/CT abdomen pelvis wo con [id number] IMPRESSION: 1. Findings suspicious for enterocolitis. This could be related to Crohn's disease. 2. Solid pulmonary nodules measuring up to 4.1 mm. As per Fleischner Society 2017 guidelines for follow-up and management of pulmonary nodules: For patients at low risk (minimal or absent history of smoking and of other known risk factors), no routine follow-up. For patient at high risk (history of smoking or of other known risk factors), recommend optional CT at 12 months. 3. Hepatomegaly. 4. Mild retroperitoneal lymphadenopathy. 5. Nonobstructive left renal stones. 6. Probable small cyst in the left ovary. COMMENTS: Consistent with the [place] [employer]'s Incidental Findings Committee white paper (J Am Zenon Radiol 2018): Any incidental renal lesion less than 1 cm or classified as too small to characterize, or any incidental cystic renal lesion characterized as simple-appearing, is likely benign. No follow-up imaging is recommended for these lesions per consensus recommendations based on imaging criteria.
[2023-01-02] MEDS: potassium chloride ER 20 mEq Tablet 40 MEQ PO (11:07)
[2023-01-02 11:08] VITALS: BP 123/87; PULSE 92; RESP 18; O2SAT 98
[2023-01-02 12:17] LABS: Reflex Lactate Order REFLEX LACTIC ORDERD
--- NOTE | 2023-01-02 12:17 | USR_ITS ---
PROCEDURE INFORMATION: Exam: US Abdomen, Limited; Right Upper Quadrant Exam date and time: 01/02/2023 12:59 PM Age: 47 years old Clinical indication: Abdominal pain; Acute TECHNIQUE: Imaging protocol: Real time ultrasound of the abdomen with image documentation. Limited exam focused on the right upper quadrant. COMPARISON: CT abdomen pelvis wo con [id number] 01/02/2023 11:12 AM FINDINGS: No focal hepatic lesion is identified. No biliary ductal dilatation. The common bile duct measures 0.4 cm. No cholelithiasis. No gallbladder wall thickening or pericholecystic fluid. The right kidney measures 9.3 cm. No suspicious mass or hydronephrosis. The pancreas is partially obscurred by overlying bowel gas. The visualized pancreas is unremarkable. The visualized aorta is grossly normal in caliber. The IVC is not well assessed. US/US gall bladder [id number] IMPRESSION: No acute abnormality identified.
--- NOTE | 2023-01-02 12:17 | XRR_ITS ---
PROCEDURE INFORMATION: Exam: XR Chest Exam date and time: 01/02/2023 12:27 PM Age: 47 years old Clinical indication: Chest pain/pressure. Shortness of breath. TECHNIQUE: Imaging protocol: Radiologic exam of the chest. Views: 1 view. COMPARISON: CR XR chest 1V portable [id number] 09/25/2021 5:19 PM FINDINGS: Lungs: Small nodule in the right apex is unchanged since 2017 and likely reflects a benign granuloma. No pulmonary consolidation. Pleural spaces: No pleural effusion. No pneumothorax. Heart/Mediastinum: Cardiac silhouette is unchanged. No gross evidence of pneumomediastinum. Bones/joints: No gross fracture. XR/XR chest 1V portable [id number] IMPRESSION: No acute cardiopulmonary abnormality identified.
[2023-01-02] MEDS: metroNIDAZOLE IV 500 MG/100 ML PREMIX 100 MG IV (12:23)
--- NOTE | 2023-01-02 12:42 | ECG_ITS ---
[facility] Test Date: 2023-01-02 Pat Name: Rohini Gonzalez Department: Room: Gender: Female Joint Setter: : 1975 Requested By: Alin Armstrong Order Number: [id number] Chuck MD: Emely Dunn M.D. Measurements Intervals [place] Rate: 104 P: 79 DE: 134 QRS: 63 QRSD: 86 T: 138 QT: 345 QTc: 454 Interpretive Statements SINUS TACHYCARDIA POSSIBLE LEFT ATRIAL ENLARGEMENT [-0.1mV P-WAVE IN V1/V2] ST DEVIATION AND MODERATE T-WAVE ABNORMALITY, CONSIDER ANTEROLATERAL ISCHEMIA [-0.1+ mV T-WAVE IN V3-V6] ST DEVIATION AND MODERATE T-WAVE ABNORMALITY, CONSIDER INFERIOR ISCHEMIA [-0.1+ mV T-WAVE IN II/aVF] Compared to ECG 09/25/2021 21:12:26 T-wave abnormality now present Possible ischemia now present Sinus bradycardia no longer present Electronically Signed On 01-02-2023 14:14:08 CDT by Emely Dunn M.D. [email or web address]
[2023-01-02 13:01] LABS: Erythrocyte Sedimentation Rate 5 mm/hr (0-15)
[2023-01-02 13:03] LABS: HCG Qualitative Urine. Negative (Negative)
[2023-01-02 13:05] LABS: Troponin(5th) Baseline 18 ng/L (0-10)
[2023-01-02 13:07] LABS: C Reactive Protein 45.7 mg/L (0.0-4.9); Lactic Acid level (Lactate) 2.9 mmol/L (0.5-2.2)
[2023-01-02 13:14] LABS: Procalcitonin 0.61 ng/mL (0-0.5)
[2023-01-02 13:23] LABS: HIV 1 & 2 Antibody Non-Reactive (Non-Reactiv); HIV 1 & 2 Antigen Non-Reactive (Non-Reactiv)
[2023-01-02 13:35] LABS: Hepatitis A Antibody IgM Non-Reactive (Nonreactive); Hepatitis B Core IgM Non-Reactive (Nonreactive); Hepatitis B Surface Antigen Non-Reactive (Nonreactive); Hepatitis C Virus Antibody Non-Reactive (Nonreactive)
--- NOTE | 2023-01-02 13:41 | P.HP_ITS ---
Providers/Chief Complaint Primary Care Provider: Gee Simon Chief Complaint: ABD PAIN History of Present Illness Rohini Gonzalez is a 47 year old female Review of Systems Const: Reports: body aches, fatigue and malaise; Denies: fever(s) or chills Eyes: Denies: change in vision ENMT: Denies: throat pain Card: Denies: chest pain or palpitations Resp: Reports: dyspnea; Denies: non-productive cough GI: Reports: abdominal pain, nausea, bloating, GI cramping and hematochezia; Denies: vomiting, hematemesis, coffee ground emesis or dysphagia : Denies: flank pain, difficulty voiding or dysuria Musc: Denies: neck pain or back pain Skin/Breast: Reports: rash Neuro: Reports: dizziness; Denies: headache(s), numbness in extremities or weakness in extremities Psych: Reports: anxiety Endo: Denies: polyuria or polydipsia Charles/Lymph: Denies: easy bruising Medications/Allergies Home Medications Medication Instructions Recorded Confirmed Last Taken Type alprazolam 1 mg tablet 1 mg PO QID PRN Anxiety 01/08/21 01/02/23 01/08/21 08:00 History zbheqks-zelwvmutfnmup-jaxgnklw 250 2 tab PO BID PRN Migraine Headache 01/08/21 01/02/23 01/08/21 03:00 History mg-250 mg-65 mg tablet (Excedrin Migraine) diphenhydramine HCl 25 mg capsule 25 - 50 mg PO Q6H PRN Itching 01/08/21 01/02/23 Unknown History (Benadryl) pantoprazole 40 mg tablet,delayed 40 mg PO QAM 01/08/21 01/02/23 01/08/21 03:00 History release quetiapine 300 mg tablet 600 mg PO BEDTIME 01/08/21 01/02/23 01/07/21 History sertraline 100 mg tablet 100 mg PO TID 01/08/21 01/02/23 01/08/21 08:00 History topiramate 200 mg tablet 200 mg PO BID 01/08/21 01/02/23 01/08/21 03:00 History zolpidem 10 mg tablet 10 mg PO BEDTIME 01/08/21 01/02/23 01/07/21 History diphenoxylate-atropine 2.5 1 tab PO TID PRN diarrhea #10 tabs 07/30/21 01/02/23 Unknown Rx mg-0.025 mg tablet (Lomotil) albuterol sulfate 90 mcg/actuation 2 puff inhalation Q4H PRN 07/31/21 01/02/23 Unknown History aerosol inhaler Shortness Of Breath budesonide-formoterol HFA 160 2 puff inhalation BID 09/21/22 01/02/23 Unknown History mcg-4.5 mcg/actuation aerosol inhaler (Symbicort) dextroamphetamine-amphetamine 10 10 mg PO QAM 09/21/22 01/02/23 Unknown History mg tablet dicyclomine 10 mg capsule 10 mg PO QID 09/21/22 01/02/23 Unknown History famotidine 40 mg tablet 40 mg PO DAILY 09/21/22 01/02/23 Unknown History gabapentin 800 mg tablet 800 mg PO TID 09/21/22 01/02/23 Unknown History ibuprofen 200 mg tablet 200 mg PO Q6H PRN Pain 09/21/22 01/02/23 Unknown History nystatin 100,000 unit/mL oral 5 ml PO QID 09/21/22 01/02/23 Unknown History suspension ondansetron 4 mg disintegrating 4 mg PO TID PRN Nausea And Vomiting 09/21/22 01/02/23 Unknown History tablet promethazine 12.5 mg tablet 12.5 mg PO Q6H PRN Nausea And 09/21/22 01/02/23 Unknown History Vomiting apixaban 5 mg tablet (Eliquis) 5 mg PO BID 01/02/23 01/02/23 Unknown History bupropion HCl 300 mg 24 hr tablet, 300 mg PO DAILY 01/02/23 01/02/23 Unknown History extended release Allergies Allergy/AdvReac Type Severity Reaction Status Date / Time ciprofloxacin [From Cipro] Allergy ALGY-Hives Verified 01/02/23 10:56 ibuprofen Allergy ALGY-Hives Verified 01/02/23 10:56 ketorolac [From Toradol] Allergy ALGY-Hives Verified 01/02/23 10:56 PFSH Acute PFSH: Medical History Acute hypokalemia MARLEEN (acute kidney injury) Chronic diarrhea Depression Failure to thrive Gastroenteritis Surgical History History of appendectomy History of tonsillectomy History of tubal ligation S/P breast augmentation S/P laparotomy Family History (Updated 01/02/23 @ 13:43 by Alin Armstrong MD) Mother CAD (coronary artery disease) Drug use Social History (Updated 01/02/23 @ 13:43 by Alin Armstrong MD) Smoking and tobacco status: current every day smoker Alcohol intake: never Substance/Drug Use: never Vitals/I&O/Wt Last Vital Signs Temp 97.4 F L 01/02/23 09:25 Pulse 92 01/02/23 11:08 Resp 18 01/02/23 11:08 BP 123/87 01/02/23 11:08 Pulse Ox 98 01/02/23 11:08 O2 Del Method Room Air 01/02/23 11:08 01/01/23 01/02/23 01/02/23 22:59 06:59 14:59 Intake Total 1000 / 1000 Balance 1000 / 1000 Weight last 48 hrs Weight 45.359 kg Physical Exam Const: COMMON NORMALS: no acute distress and patient oriented x3 GENERAL APPEARANCE: cooperative, well kempt and well developed HENMT: COMMON NORMALS: normocephalic and Normal external nose present HEAD & SCALP: normocephalic FACE & SINUS: normal facial exam NOSE: Normal external nose present MOUTH: Normal oral and palatal mucosa present Eye: COMMON NORMALS: Equal, round and reactive pupils present, EOMs intact bilaterally, conjunctivae normal and no scleral icterus CONJUNCTIVA: Yes conjunctivae normal PUPIL: Yes Equal, round and reactive pupils present Neck/C-Spine: COMMON NORMALS: full ROM, no lymphadenopathy, no JVD, Thyroid normal and No carotid bruits THYROID: Thyroid normal Lymph: LYMPHATIC: no lymphadenopathy noted Chest: COMMONS NORMALS: normal inspection of the chest Resp: COMMON NORMALS: normal respiratory effort, No retractions, No use of accessory muscles and clear to auscultation bilaterally AUSCULTATION: clear to auscultation bilaterally Cardio: COMMON NORMALS: regular rate, regular rhythm, S1 normal heart sound present, S2 normal heart sound present, No murmurs present (Cardio) and Peripheral pulses 2+ throughout RATE: regular rate RHYTHM: regular rhythm HEART SOUNDS: S1 normal heart sound present and S2 normal heart sound present PERIPHERAL PULSES: Peripheral pulses 2+ throughout GI: INSPECTION: Yes abdominal distension AUSCULTATION: Yes Hypoactive bowel sounds present PALPATION: Yes Soft to palpation, No Firmness to palpation present (GI), Yes Tenderness to palpation present (GI) (generalized), No Guarding due to palpation present (GI), No Rigid due to palpation, No Hepatomegaly present and No Splenomegaly present PERCUSSION: normal to percussion : COMMON NORMALS: Yes no CVA tenderness BLADDER/KIDNEY EXAM: Yes no CVA tenderness Back/Pelvis: COMMON NORMALS: no CVA tenderness Extremity: COMMON NORMALS: normal to inspection, full ROM, capillary refill normal, no calf tenderness and no pedal edema Neuro: COMMON NORMALS: patient oriented x3, CN's II-XII intact bilaterally, moves all extremities, no focal motor deficits and no sensory deficits noted MENINGEAL SIGNS: Yes no meningeal signs Psych: COMMON NORMALS: mental status grossly normal, Normal thought process present, cooperative and speech normal APPEARANCE: Yes well kempt SPEECH: Yes normal speech THOUGHT PROCESS: Normal thought process present Skin: COMMON NORMALS: turgor normal and no jaundice GENERAL SKIN EXAM: turgor normal Data 01/02/23 10:24 01/02/23 10:24 Micro: Microbiology 01/02/23 12:29 Stool Lactoferrin - Final Stool Occult Blood (FIT) - Final 01/02/23 12:14 Blood Culture - Preliminary Blood SPECIMEN COLLECTED 01/02/23 10:24 Blood Culture - Preliminary Blood SPECIMEN COLLECTED A&P Assessment and plan (1) Colitis: (2) Acute hypokalemia: (3) Elevated lactic acid level: (4) Leukocytosis: Qualifiers: Leukocytosis type: unspecified Qualified Code(s): D72.829 - Elevated white blood cell count, unspecified (5) Adult failure to thrive: (6) Chronic diarrhea: (7) Bloody diarrhea: (8) Hx of Crohn's disease: (9) Aortic thrombus: (10) Metabolic acidosis: Plan Acute colitis -Concerns for possible mesenteric ischemia -CT scan here without contrast shows -. ? Findings suspicious for enterocolitis. This could be related to Crohn's disease. 2. ? Solid pulmonary nodules measuring up to 4.1 mm. As per Fleischner Society 2017 guidelines for follow-up and management of pulmonary nodules: For patients at low risk (minimal or absent history of smoking and of other known risk factors), no routine follow-up. For patient at high risk (history of smoking or of other known risk factors), recommend optional CT at 12 months. 3. ? Hepatomegaly. 4. ? Mild retroperitoneal lymphadenopathy. 5. ? Nonobstructive left renal stones. 6. ? Probable small cyst in the left ovary. 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 -Currently on Eliquis however having bloody stools -Would recommend transfer to tertiary level center, for GI evaluation, vascular evaluation, Concerns for acute mesenteric ischemia, prior CT scan in September showed aortic thrombus with extension into celiac plexus, with pneumatosis ulcerations extending into small bowel mucosa in the past this time we can do a CT scan with contrast given her creatinine, is on Eliquis, abdominal exam benign but with leukocytosis lactic acid, recommend transfer to tertiary level center for GI evaluation, vascular evaluation Crohn's disease, with colitis, with concern for bloody stools, will with prior history of aortic thrombus extending to celiac plexus, recommend transfer for GI evaluation Acute kidney injury secondary to dehydration IV fluids Hypokalemia replace Lactic acidosis, concerns for dehydration, concerns for mesenteric ischemia is on Eliquis, currently having bloody stools, -Transfer to [facility] for evaluation GI, vascular surgery Hyponatremia, IV hydration Leukocytosis, likely secondary to colitis, received Flagyl therapy in the emergency room Await stool studies Metabolic acidosis, likely secondary to dehydration, lactic acidosis Concerns for possible mesenteric ischemia although abdominal examination benign, given bloody stools and prior CT's scan findings would recommend transfer Attestations Medical Necessity Statement*: Patient will be transferred to [facility] for tertiary level evaluation, concern for possible mesenteric ischemia, needs GI evaluation Diagnoses Colitis K52.9 Acute hypokalemia E87.6 Elevated lactic acid level R79.89 Leukocytosis D72.829 Leukocytosis type: unspecified Adult failure to thrive R62.7 Chronic diarrhea K52.9 Bloody diarrhea R19.7 Hx of Crohn's disease Z87.19 Aortic thrombus I74.10 Metabolic acidosis E87.20
--- NOTE | 2023-01-02 14:42 | ECG_ITS ---
[facility] Test Date: 2023-01-02 Pat Name: Rohini Gonzalez Department: Room: Gender: Female [employer]: : 1975 Requested By: Alin Armstrong Order Number: [id number] Chuck MD: Odell Og M.D. Measurements Intervals [place] Rate: 110 P: 79 SD: 123 QRS: 62 QRSD: 86 T: 76 QT: 343 QTc: 465 Interpretive Statements SINUS TACHYCARDIA POSSIBLE RIGHT ATRIAL ENLARGEMENT [0.25mV P-WAVE] ST DEVIATION AND MODERATE T-WAVE ABNORMALITY, CONSIDER LATERAL ISCHEMIA [-0.1+ mV T-WAVE IN I/aVL/V5/V6] ST DEVIATION AND MODERATE T-WAVE ABNORMALITY, CONSIDER INFERIOR ISCHEMIA [-0.1+ mV T-WAVE IN II/aVF] Compared to ECG 01/02/2023 13:30:43 No significant changes Electronically Signed On 01-03-2023 8:03:59 CDT by Odell Og M.D. [id number]
[2023-01-02 15:03] VITALS: BP 122/79; PULSE 93; RESP 18; O2SAT 97
[2023-01-02 15:06] LABS: Troponin 5 2HR 17.42 ng/L (0-10)
[2023-01-02 15:10] LABS: Troponin 5 2HR Delta -0.58 ABS# (0-10)
[2023-01-02 17:14] VITALS: BP 124/81; PULSE 90; RESP 18; O2SAT 100
[2023-01-06 13:04] LABS: Clostridium Difficile PCR NOT DETECTED (NOT DETECTED)
[2023-01-06 14:45] LABS: Cytomegalovirus Antibody (IGG) >10.00 U/mL; Cytomegalovirus Antibody (IGM) <30.00 AU/mL
[2023-01-14 11:51] LABS: Miscellaneous Test SEE COMMENTS
== END 2023-01-02 18:10 | disposition short-term general hospital (02) ==
PROVIDERS: Family Medicine; Emergency Provider Emergency Medicine; PCP Family Medicine
DX: K52.9 Noninfective gastroenteritis and colitis, unspecified (principal); E87.6 Hypokalemia; D72.829 Elevated white blood cell count, unspecified; R74.02 Elevation of levels of lactic acid dehydrogenase [LDH]; N28.9 Disorder of kidney and ureter, unspecified; F17.210 Nicotine dependence, cigarettes, uncomplicated
CPT/HCPCS: 36415; 71045; 74176; 76705; 80053; 80074; 80306; 81001; 81025; 82274; 83605; 83630; 83690; 83735; 84145; 84484; 85025; 85651; 86140; 87040; 87045; 87177; 87209; 87427; 87449; 87493; 87806; 93005; 96365; 96375; 99285; J2405; J3010; J3490; J7030

== ENCOUNTER 2023-01-13 00:08 | Emergency (ER) | payer MEDICARE, MEDICAID, SELFPAY ==
[2023-01-13 00:09] VITALS: BMI 16.4
[2023-01-13 00:13] VITALS: BP 118/90; PULSE 80; RESP 16; TEMP 36.6; O2SAT 99
--- NOTE | 2023-01-13 00:17 | CTR_ITS ---
PROCEDURE INFORMATION: Exam: CT Abdomen And Pelvis With Contrast Exam date and time: 01/13/2023 1:30 AM Age: 47 years old Clinical indication: Nausea and vomiting; Abdominal pain; Prior surgery; Surgery date: 6+ months; Surgery type: Breast. Bowel resection. Appy. Tubal. Patient HX: Abd pain with n/v/d. History of crohn's. TECHNIQUE: Imaging protocol: Computed tomography of the abdomen and pelvis with contrast. Radiation optimization: All CT scans at this facility use at least one of these dose optimization techniques: automated exposure control; mA and/or kV adjustment per patient size (includes targeted exams where dose is matched to clinical indication); or iterative reconstruction. Contrast material: OMNI 350; Contrast volume: 75 ml; Contrast route: INTRAVENOUS (IV); REPORTING DATA: Count of CT and Cardiac NM exams in prior 12 months: This patient has received 2 known CTs and 0 known cardiac nuclear medicine studies in the 12 months prior to the current study. COMPARISON: CT abdomen pelvis wo con [id number] 01/02/2023 11:12 AM RADIATION DOSE METRICS: Total DLP (mGy-cm): 438.8 FINDINGS: Liver: 4 mm diameter simple right anterior hepatic lobe cyst redemonstrated. Gallbladder and bile ducts: Normal. No calcified stones. No ductal dilation. Pancreas: Normal. No ductal dilation. Spleen: Normal. No splenomegaly. Adrenal glands: Normal. No mass. Kidneys and ureters: 7 mm diameter simple right kidney posterior lower pole cortical cyst. 2.5 mm diameter calcified left kidney upper pole nonobstructing stone. Negative for hydronephrosis. Negative for perinephric inflammation. Stomach and bowel: Negative for bowel obstruction. Negative for bowel perforation. Negative for bowel mass. Liquid stool throughout the colon. No focal inflammatory bowel wall thickening changes are seen. No significant mesenteric or pericolonic inflammation identified. Surgical staple line along nondistended small bowel loops in the anterior left abdomen. Appendix: Appendix not seen; correlate with surgical history. Intraperitoneal space: Negative for intraperitoneal fluid collection. No free air. Vasculature: Unremarkable. No abdominal aortic aneurysm. Lymph nodes: Unremarkable. No enlarged lymph nodes. Urinary bladder: Unremarkable as visualized. Reproductive: Unremarkable as visualized. Bones/joints: Unremarkable. No acute fracture. Soft tissues: Unremarkable. CT/CT abdomen pelvis w con* [id number] IMPRESSION: 1. No focal inflammatory changes within abdomen or pelvis identified. 2. Fluid distended colon is nonspecific. COMMENTS: Consistent with the [place] [employer]'s Incidental Findings Committee white paper (J Am Zneon Radiol 2018): Any incidental renal lesion less than 1 cm or classified as too small to characterize, or any incidental cystic renal lesion characterized as simple-appearing, is likely benign. No follow-up imaging is recommended for these lesions per consensus recommendations based on imaging criteria.
--- NOTE | 2023-01-13 00:19 | ED_ITS ---
HPI - Abdominal Pain General: Chief Complaint: Abdominal Pain Stated Complaint: abd pain Time Seen by Provider: 01/13/23 00:11 Source: patient and EMS Mode of arrival: EMS Limitations: no limitations History of Present Illness: 47-year-old female has a history of Crohn's history of chronic abdominal pain from her Crohn's and multiple abdominal surgeries in the past with multiple colon resections. She states that she was admitted at [place] discharge on Wednesday's been having abdominal pain ever since she was told in [place] she had a gastroenteritis. States she had vomiting diarrhea and severe pain she rates an 8 out of 10 she denies any fevers denies any worsening improving factors. Associated Symptoms: Reports diarrhea, nausea and vomiting; Denies chills, dysuria and fever(s) Related Data: Date of Last Menstrual Period: 01/07/23 Review of Systems Const: Denies: fever(s), chills, body aches or change in appetite Eyes: Denies: eye discomfort ENMT: Denies: throat pain or dental pain Card: Denies: chest pain Resp: Denies: dyspnea GI: Reports: abdominal pain, nausea, vomiting and diarrhea : Denies: dysuria Musc: Denies: neck pain or back pain Skin/Breast: Denies: rash Neuro: Denies: headache(s) PFSH ED PFSH: Medical History Acute hypokalemia MARLEEN (acute kidney injury) Chronic diarrhea Depression Failure to thrive Gastroenteritis Surgical History History of appendectomy History of tonsillectomy History of tubal ligation S/P breast augmentation S/P laparotomy Family History Mother CAD (coronary artery disease) Drug use Social History Smoking and tobacco status: current every day smoker Alcohol intake: never Substance/Drug Use: never Female Reproductive History: Date of last menstrual period: 01/07/23 Physical Exam Const: COMMON NORMALS: patient oriented x3 HENMT: COMMON NORMALS: normocephalic and atraumatic HEAD & SCALP: normocephalic and atraumatic Eye: COMMON NORMALS: conjunctivae normal CONJUNCTIVA: Yes conjunctivae normal Neck/C-Spine: COMMON NORMALS: full ROM and supple Chest: COMMONS NORMALS: normal inspection of the chest and normal palpation of entire chest wall Resp: COMMON NORMALS: normal respiratory effort, No retractions, No use of accessory muscles and clear to auscultation bilaterally AUSCULTATION: clear to auscultation bilaterally Cardio: COMMON NORMALS: regular rate, regular rhythm and No murmurs present (Cardio) RATE: regular rate RHYTHM: regular rhythm GI: COMMON NORMALS: no masses OTHER: Multiple abdominal scars diffuse tenderness noted Extremity: COMMON NORMALS: normal to inspection and full ROM Neuro: COMMON NORMALS: patient oriented x3, moves all extremities and no focal motor deficits Psych: COMMON NORMALS: mental status grossly normal, Normal thought process present and cooperative THOUGHT PROCESS: Normal thought process present Skin: COMMON NORMALS: no rashes or lesions noted and no wounds GENERAL SKIN EXAM: no rashes or lesions noted Course Vital Signs: Vital signs: Vital Signs Temperature 97.8 F 01/13/23 00:13 Pulse Rate 90 01/13/23 01:43 Respiratory Rate 16 01/13/23 01:43 Blood Pressure 126/76 01/13/23 01:43 Pulse Oximetry 100 01/13/23 01:43 Oxygen Delivery Me thod Room Air 01/13/23 00:13 MDM - Abdominal Pain Medical Decision Making Patient presents here with abdominal pain is chronic in nature she is well- appearing here she feels much improved after Reglan blood work and CT scan is normal she is stable for discharge. Medical Records I reviewed the patient's medical records. Lab Data I reviewed the patient's lab results. 01/13/23 01:01 01/13/23 01:01 Labs/Radiology: Radiology Impressions Abdomen/Pelvis CT 01/13/23 00:17 IMPRESSION: 1. No focal inflammatory changes within abdomen or pelvis identified. 2. Fluid distended colon is nonspecific. COMMENTS: Consistent with the [place] [employer]'s Incidental Findings Committee white paper (J Am Zenon Radiol 2018): Any incidental renal lesion less than 1 cm or classified as too small to characterize, or any incidental cystic renal lesion characterized as simple-appearing, is likely benign. No follow-up imaging is recommended for these lesions per consensus recommendations based on imaging criteria. Laboratory Results WBC 6.4 10^3/uL (4.0-10.0) 01/13/23 01:01 RBC 3.74 10^6/uL (4.1-5.3) L 01/13/23 01:01 Hgb 9.7 g/dL (11.5-15.3) L 01/13/23 01:01 Hct 32.7 % (37.0-47.0) L 01/13/23 01:01 MCV 87.4 fl (81-99) 01/13/23 01:01 MCH 25.9 pg (28.0-34.0) L 01/13/23 01:01 MCHC 29.7 g/dL (30.0-36.0) L 01/13/23 01:01 RDW 18.8 % (12.1-15.1) H 01/13/23 01:01 Plt Count 623 10^3/cmm (130-400) H 01/13/23 01:01 MPV 7.9 fL (7.4-10.4) 01/13/23 01:01 Neut % (Auto) 38.3 % 01/13/23 01:01 Lymph % (Auto) 45.1 % 01/13/23 01:01 [place] % (Auto) 12.4 % 01/13/23 01:01 Eos % (Auto) 2.7 % 01/13/23 01:01 Baso % (Auto) 0.9 % 01/13/23 01:01 Neut # (Auto) 2.45 10^3/uL (1.8-7.7) 01/13/23 01:01 Lymph # (Auto) 2.9 10^3/uL (0.8-4.8) 01/13/23 01:01 [place] # (Auto) 0.8 10^3/uL (0.2-0.9) 01/13/23 01:01 Eos # (Auto) 0.2 10^3/uL (0.0-0.8) 01/13/23 01:01 Baso # (Auto) 0.1 10^3/uL (0.0-0.1) 01/13/23 01:01 Nucleated RBC % (auto) 0 % 01/13/23 01:01 Nucleated RBCs # 0.0 /100WBC 01/13/23 01:01 Sodium 138 mmol/L (136-145) 01/13/23 01:01 Potassium 3.1 mmol/L (3.5-5.1) L 01/13/23 01:01 Chloride 107 mmol/L (98-107) 01/13/23 01:01 Carbon Dioxide 19 mmol/L (22-29) L 01/13/23 01:01 Anion Gap 15.1 (5-19) 01/13/23 01:01 BUN 5 mg/dL (6-20) L 01/13/23 01:01 Creatinine 0.7 mg/dL (0.5-0.9) 01/13/23 01:01 GFR Calculation 89.3 mL/min (90-130) L 01/13/23 01:01 Glucose 73 mg/dL (65-115) 01/13/23 01:01 Calculated Osmolality 282 mOsm/kg (285-295) L 01/13/23 01:01 Lactic Acid 0.5 mmol/L (0.5-2.2) 01/13/23 01:01 Calcium 8.0 mg/dL (8.5-10.5) L 01/13/23 01:01 Total Bilirubin 0.2 mg/dL (0.15-1.2) 01/13/23 01:01 AST 23 U/L (0-32) 01/13/23 01:01 ALT 17 U/L (0-33) 01/13/23 01:01 Alkaline Phosphatase 83 U/L (35-105) 01/13/23 01:01 Total Protein 5.6 g/dL (6.6-8.7) L 01/13/23 01:01 Albumin 3.5 g/dL (3.5-5.2) 01/13/23 01:01 Globulin 2.1 g/dL (1.3-4.6) 01/13/23 01:01 Lipase 31 U/L (13-60) 01/13/23 01:01 Urine Color Yellow (Yellow) 01/13/23 01:17 Urine Appearance Clear (CLEAR) 01/13/23 01:17 Urine pH 5 (5-7) 01/13/23 01:17 Ur Specific [place] 1.020 (1.005-1.030) 01/13/23 01:17 Urine Protein Neg (Negative) 01/13/23 01:17 Urine Glucose (UA) Norm (Normal) 01/13/23 01:17 Urine Ketones Negative (Negative) 01/13/23 01:17 Urine Blood Neg (Negative) 01/13/23 01:17 Urine Nitrate Negative (Negative) 01/13/23 01:17 Urine Bilirubin Neg (Negative) 01/13/23 01:17 Urine Urobilinogen Norm mg/dL (Negative) 01/13/23 01:17 Ur Leukocyte Esterase Negative (Negative) 01/13/23 01:17 Discharge Plan Discharge Patient Disposition: Home Clinical Impression: Abdominal pain, Vomiting Condition: Stable Prescriptions: New Reglan 10 mg tablet 10 mg PO Q6H PRN (Reason: nausea and vomiting) Qty: 20 0RF No Action quetiapine 300 mg tablet 600 mg PO BEDTIME alprazolam 1 mg tablet 1 mg PO QID PRN (Reason: Anxiety) sertraline 100 mg tablet 100 mg PO TID pantoprazole 40 mg tablet,delayed release (DR/EC) 40 mg PO QAM topiramate 200 mg tablet 200 mg PO BID zolpidem 10 mg tablet 10 mg PO BEDTIME diphenhydramine HCl [Benadryl] 25 mg Capsule 25 - 50 mg PO Q6H PRN (Reason: Itching) Excedrin Migraine 250-250-65 mg Tablet 2 tab PO BID PRN (Reason: Migraine Headache) albuterol sulfate 90 mcg/actuation HFA aerosol inhaler 2 puff INHALATION Q4H PRN (Reason: Shortness Of Breath) diphenoxylate-atropine [Lomotil] 2.5-0.025 mg tablet 1 tab PO TID PRN (Reason: diarrhea) Qty: 10 0RF bupropion HCl 300 mg tablet extended release 24 hr 300 mg PO DAILY Eliquis 5 mg tablet 5 mg PO BID nystatin 100,000 unit/mL suspension 5 ml PO QID promethazine 12.5 mg tablet 12.5 mg PO Q6H PRN (Reason: Nausea And Vomiting) famotidine 40 mg tablet 40 mg PO DAILY dextroamphetamine-amphetamine 10 mg tablet 10 mg PO QAM gabapentin 800 mg tablet 800 mg PO TID ibuprofen 200 mg Tablet 200 mg PO Q6H PRN (Reason: Pain) ondansetron 4 mg tablet,disintegrating 4 mg PO TID PRN (Reason: Nausea And Vomiting) dicyclomine 10 mg capsule 10 mg PO QID budesonide-formoterol [Symbicort] 160-4.5 mcg/actuation HFA aerosol inhaler 2 puff INHALATION BID Discharge Orders: Discharge ED (Routine); Ordered 01/13/23 Ordered By: Valeria Reyes Referrals: Gee Simon [Primary Care Provider] - 1-3 days Discharge Diet: Advance as tolerated Discharge Activity: Resume usual activity Patient Instructions: Abdominal Pain (ED) Coding Level of Care Code ED Visitor Information Assistant for Khoa Szymanski
[2023-01-13] MEDS: metoclopramide 5 mg/mL SDV 2 mL 10 MG IVP (00:28)
[2023-01-13] MEDS: sodium chloride 0.9% 1,000 ML 999 ML IV (00:28)
[2023-01-13] MEDS: diphenhydrAMINE 50 mg/mL SDV 1mL IVP (00:28)
[2023-01-13 01:07] LABS: Basophils # 0.1 10^3/uL (0.0-0.1); Basophils % 0.9 %; Eosinophils # 0.2 10^3/uL (0.0-0.8); Eosinophils % 2.7 %; Hematocrit 32.7 % (37.0-47.0); Hemoglobin 9.7 g/dL (11.5-15.3); Lymphocytes # 2.9 10^3/uL (0.8-4.8); Lymphocytes % 45.1 %; Mean Corpuscular HGB Conc 29.7 g/dL (30.0-36.0); Mean Corpuscular Hemoglobin 25.9 pg (28.0-34.0); Mean Corpuscular Volume 87.4 fl (81-99); Mean Platelet Volume 7.9 fL (7.4-10.4); Monocytes # 0.8 10^3/uL (0.2-0.9); Monocytes % 12.4 %; Neutrophils # 2.45 10^3/uL (1.8-7.7); Neutrophils % 38.3 %; Nucleated Red Blood Cells % 0 %; Platelet Count 623 10^3/cmm (130-400); Red Blood Count 3.74 10^6/uL (4.1-5.3); Red Cell Distribution Width 18.8 % (12.1-15.1); White Blood Count 6.4 10^3/uL (4.0-10.0)
[2023-01-13 01:23] LABS: Alanine Aminotransferase 17 U/L (0-33); Albumin Level 3.5 g/dL (3.5-5.2); Alkaline Phosphatase 83 U/L (35-105); Anion Gap 15.1 (5-19); Aspartate Amino Transferase 23 U/L (0-32); Blood Urea Nitrogen 5 mg/dL (6-20); Carbon Dioxide 19 mmol/L (22-29); Chloride 107 mmol/L (98-107); Globulin 2.1 g/dL (1.3-4.6); Glomerular Filtration Rate 89.3 mL/min (90-130); Glucose 73 mg/dL (65-115); Lipase 31 U/L (13-60); Osmolality Calculated 282 mOsm/kg (285-295); Potassium 3.1 mmol/L (3.5-5.1); Sodium 138 mmol/L (136-145); Total Bilirubin 0.2 mg/dL (0.15-1.2); Total Protein 5.6 g/dL (6.6-8.7)
[2023-01-13 01:24] LABS: Lactic Sepsis W/Reflex 0.5 mmol/L (0.5-2.2)
[2023-01-13 01:34] LABS: Add Urine Microscopic? NO; Charge for UA Resulting for Rev
[2023-01-13] MEDS: iohexol 350 mg/mL 500 mL Btl (per mL) IV (01:34)
[2023-01-13 01:36] LABS: Bilirubin Urine Neg (Negative); Blood Urine Neg (Negative); Glucose Urine UA Norm (Normal); Ketones Urine Negative (Negative); Leukocyte Esterase Urine Negative (Negative); Nitrate Urine Negative (Negative); Protein Urine Neg (Negative); Urine Appearance Clear (CLEAR); Urine Color Yellow (Yellow); Urobilinogen Urine Norm (Negative); pH Urine 5 (5-7)
[2023-01-13 01:43] VITALS: BP 126/76; PULSE 90; RESP 16; O2SAT 100
== END 2023-01-13 03:00 | disposition home or self-care (01) ==
PROVIDERS: Emergency Provider Emergency Medicine; PCP Family Medicine
DX: R10.9 Unspecified abdominal pain (principal); R11.11 Vomiting without nausea; F17.210 Nicotine dependence, cigarettes, uncomplicated
CPT/HCPCS: 36415; 74177; 80053; 81003; 83605; 83690; 85025; 96374; 96375; 99285; J1200; J2765; J7030; Q9967

== ENCOUNTER 2025-04-06 17:39 | Inpatient (IN) | payer MEDICARE, MEDICAID, SELFPAY ==
--- OUTSIDE RECORDS SUMMARY | 2018-06-13 08:11 | XMS_ITS | Continuity of Care Document ---
Author Organization [facility] Address [address] [place] [id number] Phone Care Team Providers Care Prop And Effects Designer Name Role Phone Sourav Killian Unavailable Unavailable Advance Directives Directive Yes / No Effective Date File Name No Information Encounters Encounter Description Practice Location Reason(s) For Visit Diagnoses Date Provider Providers Copied on Encounter [facility], [address] [place] [address], [facility], tel:[phone] *[facility] No Information Maria D Benjamin. [address] [place] [address], [facility], . tel:[phone] Family History Family Member Type Diagnosis Age At Onset No Information Payers Payer name Insurance type Covered libertarian ID Authoriza tion(s) No Information Social History Type Description Quantity Date Captured Comments Sex Female Smoking Status No Information Chief Complaint And Reason For Visit No Information Reason For Referral Reason For Referral No Information History Of Present Illness Encounter Date Complaint History Of Prese nt Illness No Information Functional Status Date Functional Assessmen t No Information Instructions Date Instruction Additional Infor mation No Information Assessments Type Assessment Date No Information Patient Care Teams Name Effective Dates (start - stop) Status Members No Information
[2025-04-06] VITALS (8 sets, daily range): BP systolic 92–108; BP diastolic 63–79; PULSE 79–114; RESP 20; TEMP 37.4; O2SAT 96–99; BMI 15.7
--- OUTSIDE RECORDS SUMMARY | 2025-04-06 17:48 | XMS_ITS | Clinical Summary ---
Author Organization Formerly [facility] Facility Address [address] [address] Care Team Providers Care Continuity Writer Name Role Phone Gee Simon MD Primary Care Provider [phone] Social History Tobacco Use Types Packs/Day Years Used Date Smoking Tobacco: Never Assessed Comments Unknown Sex and Gender Information Value Date Recorded Sex Assigned at Not on file Legal Sex Female 9:13 AM EST Gender Identity Not on file Sexual Orientation Not on file Plan of Treatment Health Maintenance Due Date Last Done Comments Breast Cancer Screening 1975 Hepatitis B Vaccine (1 of 3 - 19+ 3-dose series) 09/02 Colorectal Cancer Screening: Annual FOBT 2023 Colorectal Cancer Screening: Colonoscopy 2023 Colorectal Cancer Screening: Sigmoidoscopy 2023 Pneumococcal Vaccine: 50+ Years (1 of 1 - PCV) 025 Influenza Vaccine (#1) 2025 Insurance [facility] Dual Snp Medicaid [place] ([id number]) Care Teams Continuity Writer Relationship Specialty Start Date End Date Gee Simon MD [address] [id number] PCP - General Family Medicine 08/19/21
--- OUTSIDE RECORDS SUMMARY | 2025-04-06 17:48 | XMS_ITS | Clinical Summary ---
Author Organization [facility] Address [address] [place] [address] Care Team Providers Care Furnishings Conservator Name Role Phone Gee Simon MD Primary Care Provider [phone] Allergies Active Allergy Reactions Criticality Noted Date Comments Clindamycin Diarrhea Low 02/23/2014 Ibuprofen Hives High 02/23/2014 Ketorolac Hives High 02/23/2014 Naproxen Sodium Hives High 02/23/2014 Penicillins Hives High 03/28/2011 Reaction: Hives, Medications acetaminophen (TYLENOL) 325 mg tablet Take 2 Tablets (650 mg) by mouth every 6 hours as needed for Pain. 1 Active naloxone (NARCAN) 4 mg/spray [place], Non-Aerosol EMERGENCY USE ONLY: Administer 1 spray (4 mg) in one nostril one time. May repeat in alternating nostrils every 2-3 min until responsive or EMS arrives. 2 Each 3 12/27/2020 3:37 PM CDT 1 Active ALPRAZolam (XANAX) 1 mg tablet Take 1 mg by mouth every 6 hours as needed. Active topiramate (TOPAMAX) 200 mg tablet Take 200 mg by mouth 2 times daily. Active sertraline (ZOLOFT) 100 mg tablet Take 200 mg by mouth 2 times daily. Active QUEtiapine (SEROquel) 300 mg tablet Take 600 mg by mouth daily at bedtime. Active gabapentin (NEURONTIN) 300 mg capsule Take 300 mg by mouth 3 times daily. Active vitamin B complex-vitamin C-folic acid (NEPHROCAP) 1 mg CapsuleIndicatio ns:Severe protein-calorie malnutrition Take 1 Capsule by mouth daily. 30 Capsule 2 1 Active Additional Information Patient taking differently:1 Capsule Oral DAILY,OTC, Reported on 01/24/2021 traZODone (DESYREL) 150 mg tabletIndication s:Drug-induced psychotic disorder with delusions (CMS/HCC),Post traumatic stress disorder (PTSD),SAADIA (generalized anxiety disorder) Take 1 Tablet (150 mg) by mouth daily at bedtime. 30 Tablet 2 1 Active pantoprazole (PROTONIX) 40 mg Tablet, Delayed Release (E.C.)Indication s:Gastroesophage al reflux disease, unspecified whether esophagitis present,Gastric outlet obstruction Take 1 Tablet (40 mg) by mouth daily before breakfast. 30 Tablet 2 1 Active docusate sodium (COLACE) 100 mg capsule Take 1 Capsule (100 mg) by mouth 2 times daily as needed for Constipation. 60 Capsule 2 1 Active cholecalciferol 1,250 mcg (50,000 unit) Capsule Take 1 Capsule (50,000 Units) by mouth every 7 days. 12 Capsule 1 1 Active ondansetron (ZOFRAN ODT) 4 mg Tablet, Rapid Dissolve Take 1 Tablet (4 mg) by mouth every 8 hours as needed for Nausea/Emesis. Dissolve tablet on top of tongue, then swallow with saliva. 10 Tablet 1 1 Active naproxen (NAPROSYN) 500 mg tabletIndication s:Cellulitis of abdominal wall Take 1 Tablet (500 mg) by mouth 2 times daily with meals. 30 Tablet 1 Active potassium chloride (KLOR-CON) 20 mEq Extended Release tabletIndication s:Severe protein-calorie malnutrition TAKE 1 TABLET(20 MEQ) BY MOUTH TWICE DAILY 180 Tablet 1 1 Active oxyCODONE (ROXICODONE) 5 mg tabletIndication s:Thrush Take 1 Tablet (5 mg) by mouth every 8 hours as needed for Pain. Max Daily Amount: 15 mg 9 Tablet 1 Active ondansetron (Zofran ODT) 4 mg Tablet, Rapid Dissolve Place 1 Tablet (4 mg) under tongue every 8 hours as needed for Nausea. 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 06/30/2014 Polysubstance abuse 06/30/2014 Drug-induced psychotic disorder with delusions 1 08/30/2013 Post traumatic stress disorder (PTSD) 05/15/2014 Genital herpes 04/18/2014 Bipolar disorder, in partial remission, most recent episode mixed 02/23/2014 Simple chronic bronchitis 02/23/2014 SAADIA (generalized anxiety disorder) 02/23/2014 Irritable bowel syndrome wit h both constipation and diarrhea 02/23/2014 Esophageal reflux 02/23/2014 Tobacco use 02/23/2014 Duodenal stricture Diffuse abdominal pain Resolved Problems Problem Noted Date Diagnosed Date Resolved Date Cachexia 01/08/2021 01/14/2021 Small bowel tube feeding 01/08/202103/2021 Sepsis 12/09/2020 01/14/2021 MARLEEN (acute kidney injury) 11/23/2020 Reactive thrombocytosis 11/10/202011/2020 Hypomagnesemia 11/10/2020 01/14/2021 Moderate protein-calorie malnutrition 11/08/2020 01/14/2021 Hypokalemia 11/07/2020 01/14/2021 Acute cystitis 11/07/2020 01/14/2021 Hematemesis with nausea 03/2021 Gastric distention Acute gastric ulcer without hemorrhage or perforation 01/14/2021 Diarrhea 01/14/2021 Family History Medical History Relation Name Comments Bipolar Disorder Brother Bipolar Disorder Father Schizophrenia Mother Healthy Son Colon Cancer Neg Hx Relation Name Status Comments Brother Alive Father Mother Son Alive Social History Tobacco Use Types Packs/Day Years Used Date Smoking Tobacco: Every Day Cigarettes 0.5 30 Smokeless Tobacco: Never Tobacco Cessation:Ready to Q uit: No; Counseling Given: Yes Alcohol Use Standard Drinks/Week Comments No 0 (1 standard drink = 0.6 oz pur e alcohol) Comments No Sex and Gender Information Value Date Recorded Sex Assigned at Not on file Legal Sex Female 10:04 AM CDT Gender Identity Not on file Sexual Orientation Not on file Occupation Industry Job Start Date Job End Date Not on file Not on file Not on file Not on file Last Filed Vital Signs Vital Sign Reading Time Taken Comments Blood Pressure 96/74 02/06/2021 12:00 AM CDT Pulse 89 02/05/2021 7:59 PM CDT Temperature 36.6 C (97.9 F) 02/05/2021 8:03 PM CDT Respiratory Rate 14 02/05/2021 10:30 PM CDT Oxygen Saturation 93% 02/06/2021 12:00 AM CDT Inhaled Oxygen Concentration - - Weight 38.1 kg (83 lb 15.9 oz) 02/05/2021 7:59 P M CDT Height 170.2 cm (5' 7 ) 02/05/2021 7:59 PM CDT Body Mass Index 13.16 02/05/2021 7:59 PM CDT Plan of Treatment Health Maintenance Due Date Last Done Comments FIT/ DNA Q 3 YEARS (AUTO ORDER) 1992 FIT/FOBT Q 1 YEAR (AUTO ORDER) 1992 FLEX SIG/CT COLONOGRAPHY Q 5 YEARS (AUTO ORDER) 1992 DTAP/TDAP/TD VACCINES (1 - Tdap) 1993 HEPATITIS B VACCINES (1 of 3 - 19+ 3-dose series) 1993 Traditional Medicare (ACO) A nnual Wellness Visit 1993 HPV/Cotest (21-29) 1995 CERVICAL CANCER SCREENING 2004 HPV/Cotest (30-65) 2004 PAP SMEAR 2004 BREAST CANCER SCREENING 2014 FIT-DNA Q 3 years 2019 FIT/FOBT Q 1 year 2019 Flex Sig/CT Colonography Q 5 years 2019 ZOSTER VACCINE (1 of 2) 2024 INFLUENZA VACCINE (#1) 2025 01/24/2021 COLORECTAL CANCER SCREENING (AUTO ORDER) 08/20/2031 08/20/2021, 05/23/2014, 05/23/2014 COLORECTAL SCREENING 08/20/2031 08/20/2021, 05/23/2014, 05/23/2014 Colorectal Cancer Screening (AUTO ORDER) 08/20/2031 Colorectal Cancer Screening 08/20/2031 Medical Devices Implanted Type Area Rear Admiral Device Identifier Shelf Expiration Date Model / Serial / Lot Tube Gastro Rocky 16fr 0100-16lv - [id number] Implanted:Qty: 1 on 11/28/2020 by Vonda Rodriguez DO at [facility] Feeding Device N/A: Abdomen [employer] fka HALYARD [id number] 10/07/2021 0100-16L V / / [id number] Tube Jeju Tube Rocky 14fr 0301-14 - [id number] Implanted:Qty: 1 on 11/28/2020 by Vonda Rodriguez DO at [facility] Feeding Device N/A: Abdomen [employer] fka HALYARD [id number] 10/07/20211-14 / / [id number] Breast Procedures Procedure Name Priority Date/Time Associated Diagnosis Comments ENDOSCOPY, COLON, DIAGNOSTIC Routine 05/23/2014 4:09 PM CDT Diarrhea from Last 3 Months or Most Recently Relevant to Health Maintenance Insurance MEDICARE PART A AND B MEDICAID [place] MEDICARE PART A AND B RX [employer] RX Member Subscriber Plan / Payer (Ef fective 2020-Present) Name:Destiny Gonzalez Relation to Subscriber:Self Name:DESTINY GONZALEZ Payer ID:Not on file Group ID:[id number] Type:RX Commercial Address: [place], [place] RX [employer]IA PLANS (INTERNAL) [facility] MEDICARE PART A AND B MEDICAID [place] MED[place]ARE PART A AND B Advance Directives For more information, please contact: [phone] * Full Code (Latest Code Status on File) Date Activated Date Inactivated Comments 01/08/2021 11:36 PM 01/10/2021 2:21 PM * Full Code Date Activated Date Inactivated Comments 12/20/2020 12:11 PM 12/27/2020 7:56 PM * Full Code Date Activated Date Inactivated Comments 12/14/2020 4:54 PM 12/20/2020 12:11 PM * Full Code Date Activated Date Inactivated Comments 11/23/2020 1:06 AM 12/14/2020 1:42 AM * Full Code Date Activated Date Inactivated Comments 11/07/2020 11:19 AM 11/14/2020 7:19 PM Care Teams Furnishings Conservator Relationship Specialty Start Date End Date Gee Simon MD [address] [facility] [address] [place] [id number] PCP - General Family Practice 01/14/21
--- NOTE | 2025-04-06 17:58 | XRR_ITS ---
PROCEDURE INFORMATION: Exam: XR Chest Exam date and time: 04/06/2025 7:23 PM Age: 49 years old Clinical indication: Condition or disease; Other: Hypotension; Additional info: Hypotension; N/v; Weakness; Failure to thrive TECHNIQUE: Imaging protocol: Radiologic exam of the chest. Views: 1 view. COMPARISON: CR XR chest 1V portable [id number] 01/02/2023 12:27 PM FINDINGS: Lungs: Unremarkable. No consolidation. Pleural spaces: Unremarkable. No pleural effusion. No pneumothorax. Heart/Mediastinum: Unremarkable. No cardiomegaly. Bones/joints: Unremarkable. XR/XR chest 1V portable [id number] IMPRESSION: No acute findings.
--- NOTE | 2025-04-06 17:58 | ECG_ITS ---
[employer] Test Date: 2025-04-06 Pat Name: Rohini Gonzalez Department: Room: Gender: Female Laserist: : 1975 Requested By: Tito Zuluaga Order Number: [id number] Woods MD: Odell Og M.D. Measurements Intervals [place] Rate: 107 P: 66 VT: 116 QRS: 57 QRSD: 82 T: 80 QT: 379 QTc: 508 Interpretive Statements SINUS TACHYCARDIA WITH SHORT VT INTERVAL POSSIBLE LEFT ATRIAL ENLARGEMENT [-0.1mV P-WAVE IN V1/V2] Compared to ECG 01/02/2023 15:02:27 Short VT interval now present Possible ischemia no longer present T-wave abnormality still present Electronically Signed On 04-06-2025 22:50:29 CDT by Odell Og M.D. [email or web address]
[2025-04-06] MEDS: metoclopramide 5 mg/mL SDV 2 mL 10 MG IVP (18:27)
--- NOTE | 2025-04-06 18:42 | ED_ITS ---
Documented by User: DANIEL Samaniego 04/06/25 21:33 HPI - General Adult 2 General: Chief complaint: General Medical Stated complaint: failure to thrive Time Seen by Provider: 04/06/25 17:51 Source: patient, EMS and old records reviewed Mode of arrival: EMS Limitations: other (Poor historian) History of Present Illness: This patient is a 49-year-old female with a history of failure to thrive, prior abdominal surgery for intestinal rupture, and previous feeding tube placement who presents via ambulance with nausea, vomiting, and diarrhea. She was recently hospitalized for 11 days for similar gastrointestinal symptoms and was discharged to her friend's home, AGAINST MEDICAL ADVICE, as she refused prison placement. 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 She has a Abbott catheter in place as well that is also covered in feces. At presentation she is hypotensive, brought up after 500 mL liter Plasma-Lyte, as well as tachycardic and mildly febrile. Oxygenating well on room air. Cachectic and frail with poor hygiene overall, and review of systems and history difficult to accurately obtain due to her tangential conversation and poor historian. She has a psychiatric history including borderline personality disorder, PTSD, and generalized anxiety disorder, and she has not been taking her home medications which include Xanax, Ambien, Reglan, and medications for ADHD. She states that she was prescribed these medications by provider in [place] but has not been able to attend any appointments due to not having a ride. MD complaint: Failure to thrive Related Data Home Medications ?Medication ?Instructions ?Recorded ?Confirmed [id number] 250 2 tab PO BID PRN Mi graine Headache 01/08/21 04/07/25 mg-250 mg-65 mg tablet (Excedrin Migraine) pantoprazole 40 mg tablet,delayed 40 mg PO QAM 1 04/07/25 release quetiapine 300 mg tablet 600 mg PO BEDTIME 01/08/21 0 04/07/25 sertraline 100 mg tablet 150 mg PO DAILY 01/08/21 topiramate 200 mg tablet 200 mg PO BID 01/08/2104/07 albuterol sulfate 90 mcg/actuation 2 puff inhalation Q 4H PRN 07/31/21 04/07/25 aerosol inhaler Shortness Of Breath dicyclomine 10 mg capsule 10 mg PO QID PRN stomach tonio ns 09/21/22 04/07/25 ondansetron 4 mg disintegrating 4 mg PO TID PRN Nausea And Vomiting 09/21/22 04/07/25 tablet apixaban 5 mg tablet (Eliquis) 5 mg PO BID 01/02/23 alprazolam 1 mg tablet 1 mg PO TID PRN Anxiety 03/1104/07/25 fluticasone propionate 115 1 puff inhalation BID 04/0704/07/25 mcg-salmeterol 21 mcg/actuation HFA inhaler (Advair HFA) gabapentin 600 mg tablet 600 mg PO TID 04/07/2504/07 tizanidine 4 mg tablet 4 mg PO Q8H 04/07/25 5 topiramate 200 mg tablet (Topamax) 200 mg PO BID 04/0704/07/25 trazodone 150 mg tablet 150 mg PO BEDTIME 04/07/25 0 04/07/25 zolpidem 10 mg tablet 10 mg PO BEDTIME PRN Insomni a 04/07/25 04/07/25 Allergies Allergy/AdvReac Type Severity Reaction Status Date / Time ciprofloxacin (From Cipro) Allergy ALGY-Hives Verified 04/06/25 17:49 ibuprofen Allergy ALGY-Hives Verified 04/06/25 17:49 ketorolac (From Toradol) Allergy ALGY-Hives Verified 04/06/25 17:49 Review of Systems 2 General: Reports: Other (Unobtainable due to poor historian) PFS ED 2 PFSH: Medical History MARLEEN (acute kidney injury) Depression Chronic diarrhea Failure to thrive Acute hypokalemia Gastroenteritis Surgical History History of tonsillectomy History of tubal ligation History of appendectomy S/P breast augmentation S/P laparotomy Family History Mother CAD (coronary artery disease) Drug use Social History Smoking and tobacco/nicotine status: current every day tobacco/nicotine user Alcohol intake: never Substance/Drug Use: never Physical Exam 2 Const: COMMON NORMALS: alert EXAM LIMITATIONS: other limitations (Poor historian) GENERAL APPEARANCE: ill appearing NUTRITIONAL APPEARANCE: c achectic ORIENTATION/CONSCIOUSNESS: Yes awake OTHER: Strong odor of feces, she is covered in feces with Abbott catheter in place HENMT: COMMON NORMALS: normocephalic and atraumatic HEAD & SCALP: n ormocephalic and atraumatic OTHER: Cracked lips, dry oral mucosa Eye: COMMON NORMALS: Equal, round and reactive pupils present and EOMs intact bilaterally PUPIL: Yes Equal, round and reactive pupils present Neck/C-Spine: COMMON NORMALS: full ROM Chest: OTHER: Dried emesis on patient's chest Resp: COMMON NORMALS: normal respiratory effort, No retractions, No use of accessory muscles and clear to auscultation bilaterally AUSCULTATION: clear to auscultation bilaterally Cardio: COMMON NORMALS: regular rhythm, No gallops present (Cardio), No clicks present (Cardio) and No murmurs present (Cardio) RATE: tachycardic RHYTHM: regular rhythm GI: COMMON NORMALS: Soft to palpation and non-tender PALPATION: Yes Soft to palpation OTHER: Patient's abdomen is covered in dried feces. There is a midline abdominal surgical scar. Previous scar from feeding tube. : OTHER: Abbott catheter in place, grossly contaminated with feces Extremity: COMMON NORMALS: full ROM and no pedal edema Neuro: COMMON NORMALS: moves all extremities, no focal motor deficits and no sensory deficits noted SENSORIUM/ORIENTATION: Yes alert Psych: THOUGHT PROCESS: Tangential thought process present Course 2 Vital Signs: Vital signs: Vital Signs Temperature 97.7 F 04/07/25 04:00 Pulse Rate 89 04/07/25 04:00 Respiratory Rate 18 04/07/25 04:00 Blood Pressure 91/59 04/07/25 04:00 Pulse Oximetry 95 04/07/25 04:00 Oxygen Delivery Me thod Room Air 04/07/25 04:00 [facility] - General Adult Medical Decision Making The patient was a 49-year-old frail, cachectic female with history of failure to thrive, prior abdominal surgery with feeding tube, and psychiatric comorbidities, presenting with nausea, vomiting, and diarrhea. She was recently hospitalized for similar issues and discharged to her friend's home. On EMS arrival she was nonambulatory, covered in feces, and found hypotensive and tachycardic. In the ED she remained tachycardic and hypotensive despite Plasma- Lyte and fluid resuscitation. Exam notable for cachexia, poor hygiene, tangential speech, and Abbott catheter in place grossly contaminated with feces. Labs revealed leukocytosis with neutrophilia, thrombocytosis, hypokalemia, hyponatremia, and acute kidney injury. EKG showing sinus tachycardia, which overall has improved with fluids. Chest x-ray without acute process. Clinical picture consistent with sepsis of unclear source, though concerns for urinary versus GI, including C. difficile which is pending at this time. This is in the setting of volume depletion, electrolyte derangements, and acute kidney injury. I also query complications from delirium, rhabdomyolysis, and malnutrition. Patient has received IV fluids, empiric broad-spectrum antibiotics following obtaining cultures, and IV potassium repletion. She is excepted for hospital admission by Dr. Escobar, for continued resuscitation, electrolyte correction, infectious workup, and multidisciplinary management and likely discharge to nursing facility. Lab Data 04/06/25 19:40 04/06/25 19:40 Radiology Impressions Chest X-Ray 04/06/25 17:58 IMPRESSION: No acute findings. Laboratory Results WBC 14.87 10^3/uL (3.29-11.43) H 04/06/25 19:40 RBC 4.62 10^6/uL (3.85-5.65) 04/06/25 19:40 Hgb 12.90 g/dL (11.27-16.99) 04/06/25 19:40 Hct 41.4 % (36-47) 04/06/25 19:40 MCV 89.6 fl (85-98) 04/06/25 19:40 MCH 27.9 pg (27-33) 04/06/25 19:40 MCHC 31.2 g/dL (30-55) 04/06/25 19:40 RDW 16.5 % (12.1-15.1) H 04/06/25 19:40 Plt Count 574 10^3/cmm (157-399) H 04/06/25 19:40 MPV 8.6 fL (7.4-10.4) 04/06/25 19:40 Neut % (Auto) 82.1 % 04/06/25 19:40 Lymph % (Auto) 9.7 % 04/06/25 19:40 Becker % (Auto) 6.4 % 04/06/25 19:40 Eos % (Auto) 1.1 % 04/06/25 19:40 Baso % (Auto) 0.4 % 04/06/25 19:40 Neut # (Auto) 12.20 10^3/uL (1.8-7.7) H 04/06/25 19:40 Lymph # (Auto) 1.4 10^3/uL (0.8-4.8) 04/06/25 19:40 Becker # (Auto) 1.0 10^3/uL (0.2-0.9) H 04/06/25 19:40 Eos # (Auto) 0.2 10^3/uL (0.0-0.8) 04/06/25 19:40 Baso # (Auto) 0.1 10^3/uL (0.0-0.1) 04/06/25 19:40 Nucleated RBC % (auto) 0 % 04/06/25 19:40 Nucleated RBCs # 0.0 /100WBC 04/06/25 19:40 Sodium 133 mmol/L (136-145) L 04/06/25 19:40 Potassium 2.9 mmol/L (3.5-5.1) L 04/06/25 19:40 Chloride 101 mmol/L (98-107) 04/06/25 19:40 Carbon Dioxide 17 mmol/L (22-29) L 04/06/25 19:40 Anion Gap 17.9 (5-19) 04/06/25 19:40 BUN 24 mg/dL (6-20) H 04/06/25 19:40 Creatinine 1.5 mg/dL (0.5-0.9) H 04/06/25 19:40 GFR Calculation 36.8 mL/min (90-130) L 04/06/25 19:40 Glucose 102 mg/dL (65-115) 04/06/25 19:40 Calculated Osmolality 280 mOsm/kg (285-295) L 04/06/25 19:40 Lactic Acid 0.7 mmol/L (0.5-2.2) 04/06/25 19:40 Calcium 8.1 mg/dL (8.5-10.5) L 04/06/25 19:40 Magnesium 2.0 mg/dL (1.7-2.3) 04/06/25 19:40 Total Bilirubin 0.2 mg/dL (0.15-1.2) 04/06/25 19:40 AST 14 U/L (0-32) 04/06/25 19:40 ALT 19 U/L (0-33) 04/06/25 19:40 Alkaline Phosphatase 163 U/L (35-105) H 04/06/25 19:40 Creatine Kinase 64 U/L (26-192) 04/06/25 19:40 Total Protein 6.9 g/dL (6.6-8.7) 04/06/25 19:40 Albumin 3.9 g/dL (3.5-5.2) 04/06/25 19:40 Globulin 3.0 g/dL (1.3-4.6) 04/06/25 19:40 Lipase 34 U/L (13-60) 04/06/25 19:40 Urine Color Yellow (Yellow) 04/06/25 18:30 Urine Appearance Clear (CLEAR) 04/06/25 18:30 Urine pH 5.5 (5-7) 04/06/25 18:30 Ur Specific Superior 1.015 (1.005-1.030) 04/06/25 18:30 Urine Protein Negative (Negative) 04/06/25 18:30 Urine Glucose (UA) Negative (Normal) 04/06/25 18:30 Urine Ketones Negative (Negative) 04/06/25 18:30 Urine Blood Negative (Negative) 04/06/25 18:30 Urine Nitrate Negative (Negative) 04/06/25 18:30 Urine Bilirubin Negative (Negative) 04/06/25 18:30 Urine Urobilinogen 0.2 mg/dL (Negative) 04/06/25 18:30 Ur Leukocyte Esterase Trace (Negative) A 04/06/25 18:30 Urine RBC 6-10 /hpf (0-2) 04/06/25 18:30 Urine WBC 0-5 /hpf (0-5) 04/06/25 18:30 Ur Squamous Epith Cells 0-5 /hpf (0-5) 04/06/25 18:30 Calcium Oxalate Crystal 5-10 /hpf H 04/06/25 18:30 Amorphous Sediment Not Reportable 04/06/25 18:30 Urine Bacteria None seen /hpf (NONE) 04/06/25 18:30 Hyaline Casts 6.20 /lpf 04/06/25 18:30 Urine Opiates Screen Negative ng/mL (Negative) 04/06/25 18:30 Ur Barbiturates Screen Negative ng/mL (Negative) 04/06/25 18:30 Ur Phencyclidine Scrn Negative ng/mL (Negative) 04/06/25 18:30 Ur Amphetamines Screen Negative ng/mL (Negative) 04/06/25 18:30 U Benzodiazepines Scrn Positive ng/mL (Negative) H 04/06/25 18:30 Urine Cocaine Screen Negative ng/mL (Negative) 04/06/25 18:30 U Marijuana (THC) Screen Negative ng/mL (Negative) 04/06/25 18:30 C. difficile (PCR) Negative (Negative) 04/06/25 18:54 Influenza A (PCR) Negative (Negative) 04/06/25 18:30 Influenza Type B (PCR) Negative (Negative) 04/06/25 18:30 RSV (PCR) Negative (Negative) 04/06/25 18:30 SARS-CoV-2 (PCR) Negative (Negative) 04/06/25 18:30 All radiology interpretation(s) finalized by discharge Discharge Plan Discharge Patient Disposition: Admitted As Inpatient Admit Provider: Leonor Viera Clinical Impression: Sepsis, Adult failure to thrive, Acute hypokalemia, MARLEEN (acute kidney injury) Condition: Stable Coding Level of Care Code ED Reinsurance Accountant for Chg Fwd Documented by User: Luis Pugh DO 04/07/25 05:03 HPI - General Adult 2 General: Chief complaint: General Medical Stated complaint: failure to thrive Time Seen by Provider: 04/06/25 17:51 Related Data Home Medications ?Medication ?Instructions ?Recorded ?Confirmed [id number] 250 2 tab PO BID PRN Mi graine Headache 01/08/21 04/07/25 mg-250 mg-65 mg tablet (Excedrin Migraine) pantoprazole 40 mg tablet,delayed 40 mg PO QAM 1 04/07/25 release quetiapine 300 mg tablet 600 mg PO BEDTIME 01/08/21 0 04/07/25 sertraline 100 mg tablet 150 mg PO DAILY 01/08/21 topiramate 200 mg tablet 200 mg PO BID 01/08/2104/07 albuterol sulfate 90 mcg/actuation 2 puff inhalation Q 4H PRN 07/31/21 04/07/25 aerosol inhaler Shortness Of Breath dicyclomine 10 mg capsule 10 mg PO QID PRN stomach tonio ns 09/21/22 04/07/25 ondansetron 4 mg disintegrating 4 mg PO TID PRN Nausea And Vomiting 09/21/22 04/07/25 tablet apixaban 5 mg tablet (Eliquis) 5 mg PO BID 01/02/23 alprazolam 1 mg tablet 1 mg PO TID PRN Anxiety 03/1104/07/25 fluticasone propionate 115 1 puff inhalation BID 04/0704/07/25 mcg-salmeterol 21 mcg/actuation HFA inhaler (Advair HFA) gabapentin 600 mg tablet 600 mg PO TID 04/07/2504/07 tizanidine 4 mg tablet 4 mg PO Q8H 04/07/25 5 topiramate 200 mg tablet (Topamax) 200 mg PO BID 04/0704/07/25 trazodone 150 mg tablet 150 mg PO BEDTIME 04/07/25 0 04/07/25 zolpidem 10 mg tablet 10 mg PO BEDTIME PRN Insomni a 04/07/25 04/07/25 Allergies Allergy/AdvReac Type Severity Reaction Status Date / Time ciprofloxacin (From [facility]) Allergy ALGY-Hives Verified 04/06/25 17:49 ibuprofen Allergy ALGY-Hives Verified 04/06/25 17:49 ketorolac (From Toradol) Allergy ALGY-Hives Verified 04/06/25 17:49 [facility] ED 2 PFS: Medical History MARLEEN (acute kidney injury) Depression Chronic diarrhea Failure to thrive Acute hypokalemia Gastroenteritis Surgical History History of tonsillectomy History of tubal ligation History of appendectomy S/P breast augmentation S/P laparotomy Family History Mother CAD (coronary artery disease) Drug use Social History Smoking and tobacco/nicotine status: current every day tobacco/nicotine user Alcohol intake: never Substance/Drug Use: never Course 2 Vital Signs: Vital signs: Vital Signs Temperature 97.7 F 04/07/25 04:00 Pulse Rate 89 04/07/25 04:00 Respiratory Rate 18 04/07/25 04:00 Blood Pressure 91/59 04/07/25 04:00 Pulse Oximetry 95 04/07/25 04:00 Oxygen Delivery Me thod Room Air 04/07/25 04:00 [facility] - General Adult Medical Decision Making The patient was a 49-year-old frail, cachectic female with history of failure to thrive, prior abdominal surgery with feeding tube, and psychiatric comorbidities, presenting with nausea, vomiting, and diarrhea. She was recently hospitalized for similar issues and discharged to her friend's home. On EMS arrival she was nonambulatory, covered in feces, and found hypotensive and tachycardic. In the ED she remained tachycardic and hypotensive despite Plasma- Lyte and fluid resuscitation. Exam notable for cachexia, poor hygiene, tangential speech, and Abbott catheter in place grossly contaminated with feces. Labs revealed leukocytosis with neutrophilia, thrombocytosis, hypokalemia, hyponatremia, and acute kidney injury. EKG showing sinus tachycardia, which overall has improved with fluids. Chest x-ray without acute process. Clinical picture consistent with sepsis of unclear source, though concerns for urinary versus GI, including C. difficile which is pending at this time. This is in the setting of volume depletion, electrolyte derangements, and acute kidney injury. I also query complications from delirium, rhabdomyolysis, and malnutrition. Patient has received IV fluids, empiric broad-spectrum antibiotics following obtaining cultures, and IV potassium repletion. She is excepted for hospital admission by Dr. Escobar, for continued resuscitation, electrolyte correction, infectious workup, and multidisciplinary management and likely discharge to nursing facility. Patient originally seen by Mr. Jeannine PA-C. I agree with his history, evaluation, and management. Lab Data 04/06/25 19:40 04/06/25 19:40 Radiology Impressions Chest X-Ray 04/06/25 17:58 IMPRESSION: No acute findings. Laboratory Results WBC 14.87 10^3/uL (3.29-11.43) H 04/06/25 19:40 RBC 4.62 10^6/uL (3.85-5.65) 04/06/25 19:40 Hgb 12.90 g/dL (11.27-16.99) 04/06/25 19:40 Hct 41.4 % (36-47) 04/06/25 19:40 MCV 89.6 fl (85-98) 04/06/25 19:40 MCH 27.9 pg (27-33) 04/06/25 19:40 MCHC 31.2 g/dL (30-55) 04/06/25 19:40 RDW 16.5 % (12.1-15.1) H 04/06/25 19:40 Plt Count 574 10^3/cmm (157-399) H 04/06/25 19:40 MPV 8.6 fL (7.4-10.4) 04/06/25 19:40 Neut % (Auto) 82.1 % 04/06/25 19:40 Lymph % (Auto) 9.7 % 04/06/25 19:40 Becker % (Auto) 6.4 % 04/06/25 19:40 Eos % (Auto) 1.1 % 04/06/25 19:40 Baso % (Auto) 0.4 % 04/06/25 19:40 Neut # (Auto) 12.20 10^3/uL (1.8-7.7) H 04/06/25 19:40 Lymph # (Auto) 1.4 10^3/uL (0.8-4.8) 04/06/25 19:40 Becker # (Auto) 1.0 10^3/uL (0.2-0.9) H 04/06/25 19:40 Eos # (Auto) 0.2 10^3/uL (0.0-0.8) 04/06/25 19:40 Baso # (Auto) 0.1 10^3/uL (0.0-0.1) 04/06/25 19:40 Nucleated RBC % (auto) 0 % 04/06/25 19:40 Nucleated RBCs # 0.0 /100WBC 04/06/25 19:40 Sodium 133 mmol/L (136-145) L 04/06/25 19:40 Potassium 2.9 mmol/L (3.5-5.1) L 04/06/25 19:40 Chloride 101 mmol/L (98-107) 04/06/25 19:40 Carbon Dioxide 17 mmol/L (22-29) L 04/06/25 19:40 Anion Gap 17.9 (5-19) 04/06/25 19:40 BUN 24 mg/dL (6-20) H 04/06/25 19:40 Creatinine 1.5 mg/dL (0.5-0.9) H 04/06/25 19:40 GFR Calculation 36.8 mL/min (90-130) L 04/06/25 19:40 Glucose 102 mg/dL (65-115) 04/06/25 19:40 Calculated Osmolality 280 mOsm/kg (285-295) L 04/06/25 19:40 Lactic Acid 0.7 mmol/L (0.5-2.2) 04/06/25 19:40 Calcium 8.1 mg/dL (8.5-10.5) L 04/06/25 19:40 Magnesium 2.0 mg/dL (1.7-2.3) 04/06/25 19:40 Total Bilirubin 0.2 mg/dL (0.15-1.2) 04/06/25 19:40 AST 14 U/L (0-32) 04/06/25 19:40 ALT 19 U/L (0-33) 04/06/25 19:40 Alkaline Phosphatase 163 U/L (35-105) H 04/06/25 19:40 Creatine Kinase 64 U/L (26-192) 04/06/25 19:40 Total Protein 6.9 g/dL (6.6-8.7) 04/06/25 19:40 Albumin 3.9 g/dL (3.5-5.2) 04/06/25 19:40 Globulin 3.0 g/dL (1.3-4.6) 04/06/25 19:40 Lipase 34 U/L (13-60) 04/06/25 19:40 Urine Color Yellow (Yellow) 04/06/25 18:30 Urine Appearance Clear (CLEAR) 04/06/25 18:30 Urine pH 5.5 (5-7) 04/06/25 18:30 Ur Specific Superior 1.015 (1.005-1.030) 04/06/25 18:30 Urine Protein Negative (Negative) 04/06/25 18:30 Urine Glucose (UA) Negative (Normal) 04/06/25 18:30 Urine Ketones Negative (Negative) 04/06/25 18:30 Urine Blood Negative (Negative) 04/06/25 18:30 Urine Nitrate Negative (Negative) 04/06/25 18:30 Urine Bilirubin Negative (Negative) 04/06/25 18:30 Urine Urobilinogen 0.2 mg/dL (Negative) 04/06/25 18:30 Ur Leukocyte Esterase Trace (Negative) A 04/06/25 18:30 Urine RBC 6-10 /hpf (0-2) 04/06/25 18:30 Urine WBC 0-5 /hpf (0-5) 04/06/25 18:30 Ur Squamous Epith Cells 0-5 /hpf (0-5) 04/06/25 18:30 Calcium Oxalate Crystal 5-10 /hpf H 04/06/25 18:30 Amorphous Sediment Not Reportable 04/06/25 18:30 Urine Bacteria None seen /hpf (NONE) 04/06/25 18:30 Hyaline Casts 6.20 /lpf 04/06/25 18:30 Urine Opiates Screen Negative ng/mL (Negative) 04/06/25 18:30 Ur Barbiturates Screen Negative ng/mL (Negative) 04/06/25 18:30 Ur Phencyclidine Scrn Negative ng/mL (Negative) 04/06/25 18:30 Ur Amphetamines Screen Negative ng/mL (Negative) 04/06/25 18:30 U Benzodiazepines Scrn Positive ng/mL (Negative) H 04/06/25 18:30 Urine Cocaine Screen Negative ng/mL (Negative) 04/06/25 18:30 U Marijuana (THC) Screen Negative ng/mL (Negative) 04/06/25 18:30 C. difficile (PCR) Negative (Negative) 04/06/25 18:54 Influenza A (PCR) Negative (Negative) 04/06/25 18:30 Influenza Type B (PCR) Negative (Negative) 04/06/25 18:30 RSV (PCR) Negative (Negative) 04/06/25 18:30 SARS-CoV-2 (PCR) Negative (Negative) 04/06/25 18:30 Discharge Plan Discharge Patient Disposition: Admitted As Inpatient Admit Provider: Leonor Viera Clinical Impression: Sepsis, Adult failure to thrive, Acute hypokalemia, MARLEEN (acute kidney injury) Condition: Stable Coding Level of Care Code ED Reinsurance Accountant for Khoa Szymanski
[2025-04-06 19:24] LABS: Glucose Urine UA Negative (Normal); Nitrate Urine Negative (Negative); Specific Gravity, Urine 1.015 (1.005-1.030)
[2025-04-06 19:29] LABS: Add Urine Microscopic? YES
--- NOTE | 2025-04-06 19:29 | PC.NURSE ---
Mikaela machine rug cleaner nurse reported to this nurse that pt was changed, cleaned up best as possible in bed, placed in clean gown, clean brief, and pt is resting in bed, rr even non labored.
[2025-04-06 19:55] LABS: Hematocrit 41.4 % (36-47); Hemoglobin 12.90 g/dL (11.27-16.99); Mean Corpuscular HGB Conc 31.2 g/dL (30-55); Mean Corpuscular Hemoglobin 27.9 pg (27-33); Mean Corpuscular Volume 89.6 fl (85-98); Nucleated Red Blood Cells % 0 %; Platelet Count 574 10^3/cmm (157-399); Red Blood Count 4.62 10^6/uL (3.85-5.65); White Blood Count 14.87 10^3/uL (3.29-11.43)
[2025-04-06 19:56] LABS: UA Slide Review UA Slide Review Perf
[2025-04-06 20:02] LABS: Respiratory Syncytial Virus Ce NEGATIVE (Negative); SARS-CoV-2 PCR NEGATIVE (Negative)
[2025-04-06 20:16] LABS: Albumin Level 3.9 g/dL (3.5-5.2); Alkaline Phosphatase 163 U/L (35-105); Anion Gap 17.9 (5-19); Blood Urea Nitrogen 24 mg/dL (6-20); Calcium 8.1 mg/dL (8.5-10.5); Carbon Dioxide 17 mmol/L (22-29); Chloride 101 mmol/L (98-107); Creatinine Clr Calc Pharmacy 30.5228; Globulin 3.0 g/dL (1.3-4.6); Glucose 102 mg/dL (65-115); Lipase 34 U/L (13-60); Magnesium 2.0 mg/dL (1.7-2.3); Osmolality Calculated 280 mOsm/kg (285-295); Sodium 133 mmol/L (136-145); Total Protein 6.9 g/dL (6.6-8.7)
[2025-04-06 20:19] LABS: Lactic Sepsis W/Reflex 0.7 mmol/L (0.5-2.2)
[2025-04-06 20:23] LABS: Alanine Aminotransferase 19 U/L (0-33); Aspartate Amino Transferase 14 U/L (0-32)
[2025-04-06 20:24] LABS: Potassium 2.9 mmol/L (3.5-5.1)
[2025-04-06] MEDS: piperacillin-tazobactam 3.375 GM in sodium chloride 0.9% (plus) 50 ML IV ×2 (20:55→23:50)
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
[2025-04-06] MEDS: lidocaine 1% 5 ML in potassium chloride premix 100 ML 25 ML IV (21:53)
[2025-04-06 22:07] LABS: C.Diff PCR (Lab) NEGATIVE (Negative)
[2025-04-07] VITALS (9 sets, daily range): BP systolic 84–118; BP diastolic 59–76; PULSE 89–106; RESP 18–20; TEMP 36.4–37.3; O2SAT 95–100
[2025-04-07 01:16] LABS: PCP Screen Urine Negative (Negative)
[2025-04-07] MEDS: ondansetron 2 mg/ML SDV 2 mL 4 MG IVP (01:38)
[2025-04-07 05:18] LABS: Hematocrit 35.5 % (36-47); Hemoglobin 11.10 g/dL (11.27-16.99); Mean Corpuscular HGB Conc 31.3 g/dL (30-55); Mean Corpuscular Hemoglobin 27.7 pg (27-33); Mean Corpuscular Volume 88.5 fl (85-98); Nucleated Red Blood Cells % 0 %; Platelet Count 516 10^3/cmm (157-399); Red Blood Count 4.01 10^6/uL (3.85-5.65); White Blood Count 8.89 10^3/uL (3.29-11.43)
[2025-04-07 06:08] LABS: Alanine Aminotransferase 15 U/L (0-33); Albumin Level 3.4 g/dL (3.5-5.2); Alkaline Phosphatase 120 U/L (35-105); Anion Gap 15.3 (5-19); Aspartate Amino Transferase 11 U/L (0-32); Blood Urea Nitrogen 19 mg/dL (6-20); Calcium 7.9 mg/dL (8.5-10.5); Carbon Dioxide 18 mmol/L (22-29); Chloride 110 mmol/L (98-107); Creatinine Clr Calc Pharmacy 45.9599; Globulin 2.4 g/dL (1.3-4.6); Glucose 91 mg/dL (65-115); Magnesium 1.9 mg/dL (1.7-2.3); Osmolality Calculated 292 mOsm/kg (285-295); Potassium 3.3 mmol/L (3.5-5.1); Sodium 140 mmol/L (136-145); Total Protein 5.8 g/dL (6.6-8.7)
[2025-04-07] MEDS: piperacillin-tazobactam 3.375 GM in sodium chloride 0.9% (plus) 50 ML IV ×2 (10:32→15:16)
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
[2025-04-07] MEDS: ondansetron hcl ODT 4 mg Tab PO (13:01)
--- NOTE | 2025-04-07 13:02 | PC.CHAP ---
Pastoral Care Encounter/Spiritual Assessment Type of Contact [] Declined hand striper visit [] Patient/Family/Request visit [] Outpatient visit [] Follow-up visit [] Physician referral [] Code/Alert [x] Routine visit [] Staff referral [] Actively dying [] Patient sleeping [] Family support [] [] Out of room [] Palliative care [] [] Receiving care in room [] Pre-surgical visit [] Trauma [] Long length of stay [] ICU visit [] Other:Stop Relational/Emotional Strength [] Patient feels connected with others/family/visitors/staff [] Distress [] Loneliness/isolation [] Abandonment Spirituality of Patient [] Person of Samantha [] Attends [employer] of their Samantha [] Believes in Prayer [] Reads Bible or Sikhism materials [] There are Spiritual issues to be addressed Fiscal Technician Interventions [] Prayer [] Active listening [] Non-anxious presence [] Spiritual/emotional support [] Crisis/trauma care [] Spiritual counseling [] Bereavement support [] Provided bereavement packet [] Provided Bible/devotional materials [] Provided toy/stuffed animal, coloring book to patient or family member [] Provided Communion [] Anointing/Dana [] Salvation [] Completed spiritual assessment [] Other: Impact on Illness or Injury [] Angry [] Fearful [] Anxious [] Often cries [] Exhaustion [] Unable to work [] Unable to attend episcopalian [] Unable to walk/stand [] Unable to read [] Unable to drive [] Unable to eat/drink [] Unable to sleep [] Unable to be with family [] Patient intubated [] Other: Summary Time spent with patient
--- NOTE | 2025-04-07 15:03 | CTR_ITS ---
PROCEDURE INFORMATION: Exam: CT Abdomen And Pelvis Without Contrast Exam date and time: 04/07/2025 3:43 PM Age: 49 years old Clinical indication: Nausea and vomiting; Prior surgery; Surgery date: 6+ months; Surgery type: Breast. Bowel resection. Tubal. Appy. ; Additional info: Nausea and vomiting and further follow up TECHNIQUE: Imaging protocol: Computed tomography of the abdomen and pelvis without contrast. Radiation optimization: All CT scans at this facility use at least one of these dose optimization techniques: automated exposure control; mA and/or kV adjustment per patient size (includes targeted exams where dose is matched to clinical indication); or iterative reconstruction. COMPARISON: 1. CT abdomen pelvis w con* [id number] 01/13/2023 1:[address] abdomen pelvis wo con [id number] 01/02/2023 11:12 AM RADIATION DOSE METRICS: Total DLP (mGy-cm): 329.11 FINDINGS: Lungs: Multiple lung base nodules measuring under 4 mm have not changed since 2022. Liver: Unchanged subcentimeter cyst anteriorly in the medial segment of the left lobe of the liver. The liver is enlarged to 20 cm.The gallbladder is normal. Gallbladder and biliary ducts: Distal common bile duct caliber is up to 7 mm, without evidence for intrahepatic biliary dilatation. Distal CBD previously measured 6 mm. No obstructing focus in the common bile duct. Pancreas: The pancreas is normal. No mass. 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 Adrenal glands: The adrenal glands are normal. Kidneys and ureters: 2 mm left intrarenal calculus. No renal mass or hydronephrosis. Stomach and bowel: Bowel suture material again noted in the anterior upper pelvis. A mildly dilated loop of small bowel underlying the suture material demonstrates a gas fluid level. No other small bowel dilatation. Fluid mildly distends the majority of the colon, also noted on prior CTs. No pericolonic inflammatory changes. Appendix: There has been an appendectomy. Intraperitoneal space: No significant peritoneal free fluid. No free peritoneal air. Vasculature: Aortic caliber is normal. Lymph nodes: No lymph node enlargement. Urinary bladder: A Abbott catheter is present in the bladder. Moderate intraluminal gas in the bladder, likely secondary to the Abbott catheter. Reproductive: Uterus is unremarkable. No suspicious adnexal lesion seen. Bones/joints: Unremarkable. No acute fracture. Soft tissues: Bilateral breast implants were incompletely imaged. CT/CT abdomen pelvis wo con [id number] IMPRESSION: 1. Unchanged appearance to fluid distended colon. The finding can be associated with diarrhea. 2. Focally dilated loop of small bowel with adjacent suture material, possibly representing postsurgical changes. No other evidence for bowel obstruction. If there is persistent clinical concern for bowel obstruction, radiographic follow-up or oral contrast study could be obtained. 3. Borderline common bile duct enlargement which should be correlated clinically for biliary obstruction. If clinically suspicious, sonographic assessment is recommended. 4. Hepatomegaly
--- NOTE | 2025-04-07 16:38 | PC.NURSE ---
Patient requested to be transferred to [facility] for continuity of care when speaking to Dr. Loomis. Patient's face sheet faxed to [facility]. Waiting to hear back from facility about acceptance.
--- NOTE | 2025-04-07 17:21 | PM.TDS ---
Transfer Summary Providers Date of Admission: 04/06/25 20:54 Date of Discharge/Transfer: 04/07/25 Attending Provider at Admission: Leonor Viera MD Attending Provider at Transfer: Dean Loomis MD Primary Care Provider: Gee Simon Transfer Plans: Anticipated date of transfer: 04/07/25. Diagnoses at Discharge Discharge Diagnosis 1. Adult failure to thrive: 2. MARLEEN (acute kidney injury): 3. Altered mental status: 4. Metabolic acidosis: 5. Acute hypokalemia: 6. Sepsis: 7. Cachexia: 8. Somnolence: 9. Aortic thrombus: 10. Hx of Crohn's disease: 11. Chronic diarrhea: 12. Depression: 13. Leukocytosis: Reason for Visit Reason for Visit failure to thrive Brief History: History as per the retrospective notes and the patient : patsy Gonzalez is a 49 year old female with medical history significant for adult failure to thrive, chronic diarrhea PTSD cachexia who was today picked up at a methamphetamine house found to be altered and brought to emergency room for further evaluation. Patient also was noted to have recent [place] just 11 [place] [facility] [place] [facility] for nausea vomiting and diarrhea patient was evaluated to go long-term care at the residential for support of daily activity and activity of daily living patient at that time refused and left AGAINST MEDICAL ADVICE. 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 She has a Abbott catheter in place as well that is also covered in feces. she is able to verbalize needs on room air pulse ox not 100% hemodynamically stable with good blood pressure. However patient is found to be in acute renal failure creatinine of 1.5 potassium of 2.9 elevated white count at 14.8 bicarb was 17 patient was found with Abbott catheter indwelling outside of the Abbott catheter was soiled with stool. Patient was pancultured with blood culture and was given a dose of Zosyn here in the emergency room because of leukocytosis and somnolence though this could be due to drug issues. Hospital Course Hospital Course At presentation in the ER she was hypotensive and responded to fluids. She was saturating normal at room air. She looks cachectic frail with poor hygienic status. She also has a psych history that includes personality disorder, PTSD, and generalized anxiety disorder that he has been prescribed some medication but has not been taking as per the previous notes. Suggestions revealed acute renal failure creatinine of 1.5 potassium of 2.9 elevated white count at 14.8 bicarb was 17 patient was found with Abbott catheter indwelling outside of the Abbott catheter was soiled with stool. Patient was pancultured with blood culture and was given a dose of Zosyn here in the emergency room because of leukocytosis and somnolence though this could be due to drug issues. Patient admitted as a case of severe dehydration secondary to diarrhea possible infective source and further workup was done with correction of electrolytes and broad-spectrum antibiotics. The patient was better in the morning and was having migraine headaches. The patient medications were reconciled accordingly. Furthermore the patient mentioned to be transferred to [facility] since she has been following the and would like to continue with that. The patient has been informed about her medical condition and further plan of care that currently she is getting care at [facility]. She showed satisfactory remark about the care she is getting here however she showed her preference to be followed and continue her care at [facility] based on her previous management that has been delivered there. All the risk and benefits of the management and be discussed with the patient without any language barrier. All the questions and concerns and be addressed and the patient agrees with the plan of care Physical Exam Narrative: General: Alert oriented x3, patient seen lying comfortably however with mild distress due to headache secondary to migraine, the patient looks physically deconditioned and cachectic with signs of malnourishment and cachexia evident on physical appearance HEENT: Normocephalic, atraumatic, EOMI, breathing normally at room air Cardio: Regular rate rhythm, normal S1-S2, no murmurs rubs gallops, JVD normal Respiratory: Good bilateral air entry, no wheezes no rhonchi appreciated GI: Abdomen soft, nontender, nondistended, normoactive bowel sounds present all 4 quadrants, Neuro: Cranial nerves II to XII intact, strength 5/5, sensation 5/5, no gross neurological deficit Behavior: Appropriate and cooperative Extremities: Pulses 2+, no edema, no cyanosis TS Data Studies Completed and Pending Pending at discharge Category Date Time Status Blood Culture Stat Lab 04/06/25 19:44 Results Completed Studies During Hospitalization Category Date Time Status CT abdomen pelvis con [id number] Routine Cat Scan 04/07/25 15:03 Completed XR chest 1V portable [id number] Stat Exams 04/06/25 17:58 Completed Laboratory Last Values WBC 8.89 10^3/uL (3.29-11.43) 04/07/25 05:03 RBC 4.01 10^6/uL (3.85-5.65) 04/07/25 05:03 Hgb 11.10 g/dL (11.27-16.99) L 04/07/25 05:03 Hct 35.5 % (36-47) L 04/07/25 05:03 MCV 88.5 fl (85-98) 04/07/25 05:03 MCH 27.7 pg (27-33) 04/07/25 05:03 MCHC 31.3 g/dL (30-55) 04/07/25 05:03 RDW 16.3 % (12.1-15.1) H 04/07/25 05:03 Plt Count 516 10^3/cmm (157-399) H 04/07/25 05:03 MPV 8.4 fL (7.4-10.4) 04/07/25 05:03 Neut % (Auto) 66.5 % 04/07/25 05:03 Lymph % (Auto) 23.1 % 04/07/25 05:03 [place] % (Auto) 7.2 % 04/07/25 05:03 Eos % (Auto) 2.6 % 04/07/25 05:03 Baso % (Auto) 0.4 % 04/07/25 05:03 Neut # (Auto) 5.91 10^3/uL (1.8-7.7) 04/07/25 05:03 Lymph # (Auto) 2.1 10^3/uL (0.8-4.8) 04/07/25 05:03 [place] # (Auto) 0.6 10^3/uL (0.2-0.9) 04/07/25 05:03 Eos # (Auto) 0.2 10^3/uL (0.0-0.8) 04/07/25 05:03 Baso # (Auto) 0.0 10^3/uL (0.0-0.1) 04/07/25 05:03 Nucleated RBC % (auto) 0 % 04/07/25 05:03 Nucleated RBCs # 0.0 /100WBC 04/07/25 05:03 Sodium 140 mmol/L (136-145) 04/07/25 05:03 Potassium 3.3 mmol/L (3.5-5.1) L 04/07/25 05:03 Chloride 110 mmol/L (98-107) H 04/07/25 05:03 Carbon Dioxide 18 mmol/L (22-29) L 04/07/25 05:03 Anion Gap 15.3 (5-19) 04/07/25 05:03 BUN 19 mg/dL (6-20) 04/07/25 05:03 Creatinine 1.1 mg/dL (0.5-0.9) H 04/07/25 05:03 GFR Calculation 52.6 mL/min (90-130) L 04/07/25 05:03 Glucose 91 mg/dL (65-115) 04/07/25 05:03 Calculated Osmolality 292 mOsm/kg (285-295) 04/07/25 05:03 Lactic Acid 0.7 mmol/L (0.5-2.2) 04/06/25 19:40 Calcium 7.9 mg/dL (8.5-10.5) L 04/07/25 05:03 Phosphorus 3.1 mg/dL (2.5-4.5) 04/07/25 05:03 Magnesium 1.9 mg/dL (1.7-2.3) 04/07/25 05:03 Total Bilirubin 0.2 mg/dL (0.15-1.2) 04/07/25 05:03 AST 11 U/L (0-32) 04/07/25 05:03 ALT 15 U/L (0-33) 04/07/25 05:03 Alkaline Phosphatase 120 U/L (35-105) H 04/07/25 05:03 Creatine Kinase 64 U/L (26-192) 04/06/25 19:40 Total Protein 5.8 g/dL (6.6-8.7) L 04/07/25 05:03 Albumin 3.4 g/dL (3.5-5.2) L 04/07/25 05:03 Globulin 2.4 g/dL (1.3-4.6) 04/07/25 05:03 Lipase 34 U/L (13-60) 04/06/25 19:40 Urine Color Yellow (Yellow) 04/06/25 18:30 Urine Appearance Clear (CLEAR) 04/06/25 18:30 Urine pH 5.5 (5-7) 04/06/25 18:30 Ur Specific [place] 1.015 (1.005-1.030) 04/06/25 18:30 Urine Protein Negative (Negative) 04/06/25 18:30 Urine Glucose (UA) Negative (Normal) 04/06/25 18:30 Urine Ketones Negative (Negative) 04/06/25 18:30 Urine Blood Negative (Negative) 04/06/25 18:30 Urine Nitrate Negative (Negative) 04/06/25 18:30 Urine Bilirubin Negative (Negative) 04/06/25 18:30 Urine Urobilinogen 0.2 mg/dL (Negative) 04/06/25 18:30 Ur Leukocyte Esterase Trace (Negative) A 04/06/25 18:30 Urine RBC 6-10 /hpf (0-2) 04/06/25 18:30 Urine WBC 0-5 /hpf (0-5) 04/06/25 18:30 Ur Squamous Epith Cells 0-5 /hpf (0-5) 04/06/25 18:30 Calcium Oxalate Crystal 5-10 /hpf H 04/06/25 18:30 Amorphous Sediment Not Reportable 04/06/25 18:30 Urine Bacteria None seen /hpf (NONE) 04/06/25 18:30 Hyaline Casts 6.20 /lpf 04/06/25 18:30 Urine Opiates Screen Negative ng/mL (Negative) 04/06/25 18:30 Ur Barbiturates Screen Negative ng/mL (Negative) 04/06/25 18:30 Ur Phencyclidine Scrn Negative ng/mL (Negative) 04/06/25 18:30 Ur Amphetamines Screen Negative ng/mL (Negative) 04/06/25 18:30 U Benzodiazepines Scrn Positive ng/mL (Negative) H 04/06/25 18:30 Urine Cocaine Screen Negative ng/mL (Negative) 04/06/25 18:30 U Marijuana (THC) Screen Negative ng/mL (Negative) 04/06/25 18:30 C. difficile (PCR) Negative (Negative) 04/06/25 18:54 Influenza A (PCR) Negative (Negative) 04/06/25 18:30 Influenza Type B (PCR) Negative (Negative) 04/06/25 18:30 RSV (PCR) Negative (Negative) 04/06/25 18:30 SARS-CoV-2 (PCR) Negative (Negative) 04/06/25 18:30 Radiology Impressions Chest X-Ray 04/06/25 17:58 IMPRESSION: No acute findings. Abdomen/Pelvis CT 04/07/25 15:03 IMPRESSION: 1. Unchanged appearance to fluid distended colon. The finding can be associated with diarrhea. 2. Focally dilated loop of small bowel with adjacent suture material, possibly representing postsurgical changes. No other evidence for bowel obstruction. If there is persistent clinical concern for bowel obstruction, radiographic follow-up or oral contrast study could be obtained. 3. Borderline common bile duct enlargement which should be correlated clinically for biliary obstruction. If clinically suspicious, sonographic assessment is recommended. 4. Hepatomegaly Recent Clincial Data Last Vital Signs Temp 98.8 F 04/07/25 17:09 Pulse 91 04/07/25 17:09 Resp 19 H 04/07/25 17:09 BP 118/67 04/07/25 17:09 Pulse Ox 100 04/07/25 17:09 O2 Del Method Room Air 04/07/25 17:09 Vital Signs Temp Pulse Resp BP Pulse Ox O2 Del Method 04/07/25 17:09 98.8 F 91 19 H 118/67 100 Room Air 04/07/25 11:29 98.3 F 106 H 20 H 104/61 98 Room Air 04/07/25 07:59 99.2 F 97 18 96/59 97 Room Air 04/07/25 06:00 90 Intake & Output/Weight 04/05/25 04/06/25 04/07/25 04/08/25 06:59 06:59 06:59 06:59 Intake Total 2493.333 / 2493.333 811.667 / 811.667 Output Total 900 / 900 Balance 1593.333 / 1593.333 811.667 / 811.667 Weight 47.582 kg Vitals Last Vital Signs Temp 98.8 F 04/07/25 17:09 Pulse 91 04/07/25 17:09 Resp 19 H 04/07/25 17:09 BP 118/67 04/07/25 17:09 Pulse Ox 100 04/07/25 17:09 O2 Del Method Room Air 04/07/25 17:09 TS Medications Medications Acetaminophen (Acetaminophen 325 Mg Tablet) 650 mg PO Q6H PRN PRN Reason: Mild/Mod Pain Or Temp >/= 101 Last Admin: 04/07/25 10:32 Dose: 650 mg Apixaban (Apixaban 5 Mg Tablet) 5 mg PO BID@0500,1700 BRIAN Dicyclomine HCl (Dicyclomine 10 Mg Capsule) 10 mg PO QID PRN PRN Reason: stomach pains Last Admin: 04/07/25 13:01 Dose: 10 mg Docusate Sodium (Docusate Sodium 100 Mg Capsule) 100 mg PO BID [facility] Last Admin: 04/07/25 10:32 Dose: 100 mg Gabapentin (Gabapentin 300 Mg Capsule) 600 mg PO TID [facility] Last Admin: 04/07/25 15:16 Dose: 600 mg Sodium Chloride (Sodium Chloride 0.9%) 1,000 mls @ 100 mls/hr IV .Q10H [facility] Last Admin: 04/07/25 10:36 Dose: 100 mls/hr Piperacillin Sod/Tazobactam (Sod 3.375 gm/ Sodium Chloride) 50 mls @ 100 mls/hr IV Q8H [facility]; Protocol Last Infusion: 04/07/25 16:36 Dose: Infused Non-Formulary Medication (Boppgbs-Ejrtujpoukynq-Lhrlvrgo [Excedrin Migraine]) 2 tab PO BID PRN PRN Reason: Migraine Headache Ondansetron HCl (Ondansetron 2 Mg/Ml Sdv 2 Ml) 4 mg IVP Q4H PRN PRN Reason: vomiting, or N/V if npo Last Admin: 04/07/25 01:38 Dose: 4 mg Ondansetron HCl (Ondansetron Hcl Odt 4 Mg Tab) 4 mg PO TID PRN PRN Reason: NAUSEA AND VOMITING Last Admin: 04/07/25 13:01 Dose: 4 mg Oxycodone/Acetaminophen (Oxycodone-Apap 5-325 Mg Tablet) 1 tab PO Q8H PRN PRN Reason: Pain (Scale Score 4-6) Pantoprazole Sodium (Pantoprazole Dr 40 Mg Tablet) 40 mg PO DAILY [facility] Last Admin: 04/07/25 10:32 Dose: 40 mg Pantoprazole Sodium (Pantoprazole Dr 40 Mg Tablet) 40 mg PO QAM BRIAN Quetiapine Fumarate (Quetiapine 300 Mg Tablet) 600 mg PO BEDTIME BRIAN Sertraline HCl (Sertraline 100 Mg Tablet) 150 mg PO DAILY BRIAN Tizanidine HCl (Tizanidine 4 Mg Tablet) 4 mg PO Q8H BRIAN Last Admin: 04/07/25 13:01 Dose: 4 mg Topiramate (Topiramate 100 Mg Tablet) 200 mg PO BID BRIAN Trazodone HCl (Trazodone 150 Mg Tablet) 150 mg PO BEDTIME BRIAN Zolpidem Tartrate (Zolpidem 5 Mg Tablet) 10 mg PO BEDTIME PRN PRN Reason: Insomnia Discontinued Medications Sodium Chloride (Sodium Chloride 0.9%) 1,000 mls @ 999 mls/hr IV .Q1H1M ONE Stop: 04/06/25 18:57 Last Infusion: 04/06/25 20:48 Dose: Infused Lidocaine HCl 5 ml/ Potassium (Chloride) 105 mls @ 26.25 mls/hr IV ONCE ONE Stop: 04/07/25 00:29 Last Infusion: 04/07/25 01:43 Dose: Infused Piperacillin Sod/Tazobactam (Sod 3.375 gm/ Sodium Chloride) 50 mls @ 100 mls/hr IV ONCE ONE; Protocol Stop: 04/06/25 21:01 Last Infusion: 04/06/25 21:30 Dose: Infused Piperacillin Sod/Tazobactam (Sod 3.375 gm/ Sodium Chloride) 50 mls @ 100 mls/hr IV Q8H [facility]; Protocol Sodium Chloride (Sodium Chloride 0.9%) 1,000 mls @ 999 mls/hr IV .Q1H1M ONE Stop: 04/07/25 01:41 Last Infusion: 04/07/25 01:44 Dose: Infused Metoclopramide HCl (Metoclopramide 5 Mg/Ml Sdv 2 Ml) 10 mg IVP ONCE ONE Stop: 04/06/25 18:11 Last Admin: 04/06/25 18:27 Dose: 10 mg Potassium Chloride (Potassium Chloride Er 20 Meq Tablet) 40 meq PO ONCE ONE Stop: 04/07/25 12:14 Last Admin: 04/07/25 13:01 Dose: 40 meq Potassium Chloride (Potassium Chloride Er 20 Meq Tablet) 40 meq PO ONCE ONE Stop: 04/07/25 12:18 Last Admin: 04/07/25 13:58 Dose: Not Given Allergies ciprofloxacin (From Cipro) Allergy (Verified 04/06/25 17:49) ALGY-Hives gluten Allergy (Verified 04/07/25 10:54) ADR-Gastrointestinal Upset ibuprofen Allergy (Verified 04/06/25 17:49) ALGY-Hives ketorolac (From Toradol) Allergy (Verified 04/06/25 17:49) ALGY-Hives Milk Containing Products (Dairy) Allergy (Verified 04/07/25 10:54) ADR-Gastrointestinal Upset Patient has Celiac disease wheat Allergy (Verified 04/07/25 10:54) ADR-Gastrointestinal Upset Patient has Celiac disease Home Medications [id number]-pgscuwqvblrfs-oaiheiqt 250 mg-250 mg-65 mg tablet (Excedrin Migraine) 2 tab PO BID PRN Migraine Headache 01/08/21 [History Confirmed 04/07/25] pantoprazole 40 mg tablet,delayed release 40 mg PO QAM 01/08/21 [History Confirmed 04/07/25] quetiapine 300 mg tablet 600 mg PO BEDTIME 01/08/21 [History Confirmed 04/07/25] sertraline 100 mg tablet 150 mg PO DAILY 01/08/21 [History Confirmed 04/07/25] topiramate 200 mg tablet 200 mg PO BID 01/08/21 [History Confirmed 04/07/25] albuterol sulfate 90 mcg/actuation aerosol inhaler 2 puff inhalation Q4H PRN Shortness Of Breath 07/31/21 [History Confirmed 04/07/25] dicyclomine 10 mg capsule 10 mg PO QID PRN stomach pains 09/21/22 [History Confirmed 04/07/25] ondansetron 4 mg disintegrating tablet 4 mg PO TID PRN Nausea And Vomiting 09/21/22 [History Confirmed 04/07/25] apixaban 5 mg tablet (Eliquis) 5 mg PO BID 01/02/23 [History Confirmed 04/07/25] alprazolam 1 mg tablet 1 mg PO TID PRN Anxiety 04/07/25 [History Confirmed 04/07/25] fluticasone propionate 115 mcg-salmeterol 21 mcg/actuation HFA inhaler (Advair HFA) 1 puff inhalation BID 04/07/25 [History Confirmed 04/07/25] gabapentin 600 mg tablet 600 mg PO TID 04/07/25 [History Confirmed 04/07/25] oxycodone-acetaminophen 5 mg-325 mg tablet 1 tab PO Q8H PRN Pain (Scale Score 4-6) 04/07/25 [History Confirmed 04/07/25] tizanidine 4 mg tablet 4 mg PO Q8H 04/07/25 [History Confirmed 04/07/25] trazodone 150 mg tablet 150 mg PO BEDTIME 04/07/25 [History Confirmed 04/07/25] zolpidem 10 mg tablet 10 mg PO BEDTIME PRN Insomnia 04/07/25 [History Confirmed 04/07/25] Discharge Plan Discharge Patient Disposition: Xfer Other Condition: Stable Prescriptions: No Action quetiapine 300 mg tablet 600 mg PO BEDTIME sertraline 100 mg tablet 150 mg PO DAILY pantoprazole 40 mg tablet,delayed release (DR/EC) 40 mg PO QAM topiramate 200 mg tablet 200 mg PO BID [id number]-mbgawovhitlfd-[id number] [Excedrin Migraine] 250-250-65 mg Tablet 2 tab PO BID PRN (Reason: Migraine Headache) albuterol sulfate 90 mcg/actuation HFA aerosol inhaler 2 puff INHALATION Q4H PRN (Reason: Shortness Of Breath) Eliquis 5 mg tablet 5 mg PO BID ondansetron 4 mg tablet,disintegrating 4 mg PO TID PRN (Reason: Nausea And Vomiting) dicyclomine 10 mg capsule 10 mg PO QID PRN (Reason: stomach pains) gabapentin 600 mg tablet 600 mg PO TID alprazolam 1 mg tablet 1 mg PO TID PRN (Reason: Anxiety) Patient Comments: Patient stated she last took this when she was in the [facility] on Wednesday or Wednesday. Patient stated she has been taking this medication for many years. tizanidine 4 mg tablet 4 mg PO Q8H Patient Comments: Pt. has 2 prescriptions for this medication. 04/02 2mg PO q12hr and 04/04 4mg PO q8hr. trazodone 150 mg Tablet 150 mg PO BEDTIME zolpidem 10 mg tablet 10 mg PO BEDTIME PRN (Reason: Insomnia) fluticasone propion-salmeterol [Advair HFA] 115-21 mcg/actuation HFA aerosol inhaler 1 puff INHALATION BID oxycodone-acetaminophen 5-325 mg Tablet 1 tab PO Q8H PRN (Reason: Pain (Scale Score 4-6)) Referrals: Gee Simon [Primary Care Provider, [facility]] Discharge Diet: Advance as tolerated and Usual diet Discharge Activity: Resume usual activity Patient Instructions: Opioid Safety, Patient Portal & Vinh Instructions Transfer Attestations Time Spent in Transfer Care: greater than 30 min Specific Discharge Activities: educating patient, educating and/or supporting family/caregiver, discussing with pcp/other providers, discussing with case monitor/social workers/dc planners, documenting/other paperwork and evaluating patient/reviewing data Status at Transfer: Cognitive status at transfer: cognitively intact; Behavioral status at transfer: cooperative; Functional status at transfer: other assisted ambulation; Overall status at transfer: patient is not back to baseline Quality Metrics Clinical Quality Measures [ No reported AMI, CVA or VTE this stay] Coding Level of Care Code Acute Code for Chg Fwd Diagnoses Adult failure to thrive R62.7 MARLEEN (acute kidney injury) N17.9 Altered mental status R41.82 Metabolic acidosis E87.20 Acute hypokalemia E87.6 Sepsis A41.9 Sepsis acute organ dysfunction status: unspecified Sepsis type: sepsis due to unspecified organism Cachexia R64 Somnolence R40.0 Aortic thrombus I74.10 Hx of Crohn's disease Z87.19 Chronic diarrhea K52.9 Depression F32.A Leukocytosis D72.829 Leukocytosis type: unspecified
[2025-04-07] MEDS: oxyCODONE-APAP 5-325 mg Tablet 1 TAB PO (17:46)
--- NOTE | 2025-04-07 19:37 | PC.NURSE ---
Report called to SULTANA Girard at [facility]. Patient transferred self to EMS stretcher. Patient left the facility with all belongings in stable condition.
== END 2025-04-07 18:30 | disposition short-term general hospital (02) | DRG 872 ==
LOC: ER 21:57 → MEDSURG 22:20
PROVIDERS: Admitting Provider Internal Medicine; Emergency Provider Physician Assistant; PCP Family Medicine; Visit Provider Student in an Organized Health Care Education/Training Program
DX: A41.9 Sepsis, unspecified organism (principal); E46 Unspecified protein-calorie malnutrition; Z68.1 Body mass index [BMI] 19.9 or less, adult; N17.9 Acute kidney failure, unspecified; E87.20 Acidosis, unspecified; I74.10 Embolism and thrombosis of unspecified parts of aorta; K50.90 Crohn's disease, unspecified, without complications; M62.82 Rhabdomyolysis; E87.1 Hypo-osmolality and hyponatremia; Z96.0 Presence of urogenital implants; R62.7 Adult failure to thrive; E87.6 Hypokalemia; F32.A Depression, unspecified; F43.10 Post-traumatic stress disorder, unspecified; F60.9 Personality disorder, unspecified; F41.1 Generalized anxiety disorder; E86.0 Dehydration; K52.9 Noninfective gastroenteritis and colitis, unspecified; G43.909 Migraine, unspecified, not intractable, without status migrainosus; R40.0 Somnolence; F17.200 Nicotine dependence, unspecified, uncomplicated; D75.839 Thrombocytosis, unspecified; Z79.82 Long term (current) use of aspirin; Z79.01 Long term (current) use of anticoagulants; Z79.891 Long term (current) use of opiate analgesic
CPT/HCPCS: 36415; 71045; 74176; 80053; 80306; 81001; 82550; 83605; 83690; 83735; 84100; 85025; 87040; 87493; 87637; 93005; 96361; 96365; 97161; 97165; 99285; 99291; J2405; J2543; J2765; J3480; J7030; J9999; Q0162